=== PATIENT | female | born 1945 | race Caucasian/White ===

== ENCOUNTER 2017-11-06 08:17 | Outpatient (CLI) | payer MEDICARE, SELFPAY ==
[2017-11-06] VITALS (8 sets, daily range): BP systolic 120–176; BP diastolic 51–95; PULSE 61–76; RESP 12–18; TEMP 36.5; O2SAT 96–100
--- NOTE | 2017-11-06 08:20 | DI.RAD.S_ITS ---
PROCEDURE: PAIN L/S TRANSFORAMINAL INJECT INDICATIONS: LUMBOSACRAL RADICULOPATHY FINDINGS: Fluoroscopic spot filming was performed to verify placement of spinal needles at the left L5-S1 nerve root level(s), as labeled on the films. Appropriate location(s) of the needle tip(s) was confirmed by injection of iodinated contrast. IMPRESSION: Successful needle localization for left L5-S1 nerve root injection (epidural steroid). Dictated by: Edy Jerry M.D. on 11/06/2017 at 13:44 Approved by: Edy Jerry M.D. on 11/06/2017 at 13:45
--- NOTE | 2017-11-06 09:03 | P.PCN_ITS ---
Procedures Date/Time Date of procedure: 11/06/17 Time of procedure: 09:25 General Procedure description: PREOP DIAGNOSIS 1. FORMAINAL STENOSIS WITH LE SYMPTOMS POST OP DIAGNOSIS 1. FORMAINAL STENOSIS WITH LE SYMPTOMS PROCEDURES 1. FLUOROSCOPICALLY GUIDED CONTRAST CONTROLLED TRANSFORAMINAL EPIDURAL STEROID INJECTION - Left L5/S1 PHYSICIAN: Carlo Arriola DO INDICATIONS: Shanice is referred by Dr. Scales for treatment of Foraminal Stenosis with Right LE Symptoms FINDINGS Foraminal Nerve Root Compression secondary to disc disease and facet hypertrophy DESCRIPTION OF PROCEDURE: Following denial of allergy and review of potential side effects and complications, including, but not necessarily limited to, infection, allergic reaction, local tissue breakdown, stroke, temporary or permanent nerve injury, paralysis, and possible , the patient indicated that the patient understood and agreed to proceed. An informed consent document was signed by the patient, witnessed by a nurse, and placed in the patient's chart. Additionally, other treatment options including medications, modalities, and physical therapy were reviewed with the patient. Per the patient request, IV conscious sedation was administered via 5mg of Versed to patient comfort. The patient's vital signs were monitored throughout the procedure by both the nurse and the physician without significant fluctuation. The patient remained conversant throughout the procedure. In the prone position following sterile prep and drape of the lumbar region, the Left L5/S1 posterior neuroforamen was identified fluoroscopically. The skin was anesthetized via a 25-gauge 1.5-inch needle with 1% lidocaine solution. At this point, a 25-gauge 3.5-inch spinal needle was atraumatically introduced and advanced under fluoroscopic guidance through the posterior Left L5/S1 neuroforamen to approximately the anterior aspect of the canal. Depth was confirmed on lateral view. Following negative aspiration, injection of approximately 1.5 cc of Isovue 200 under live fluoroscopy in the AP view confirmed excellent flow along the nerve root, into the epidural space without vascular or intrathecal uptake observed Radiological data, including multiple fluoroscopic views of the lumbosacral spine, reveal a spinal needle at the Left L5/S1 posterior neuroforamen. Subsequent views show flow of contrast material flowing superiorly and inferiorly along the nerve root confirming epidural flow. Subsequently, a test dose of 1.5 cc of 1% lidocaine solution was administered and patient was observed for two minutes for signs or symptoms of complications , including abdominal pain, shortness of breath, bilateral upper or lower extremity weakness, nausea and vomiting, prior to steroid injection. At this point, a total of 3 cc or 20 mg of dexamethasone and 80mg Depo Medrol was injected without incident. The patient was then transferred to the recovery area where they were observed for an appropriate time after the injection. The patient reported a VAS score of 7 prior to the procedure and a post-procedure VAS of 0. Total Fluoroscopy Time: 20.9 seconds Total Conscious Sedation Time: 24min POST OP INSTRUCTIONS The patient was provided a Pain Log to continue to record their response to the target-specific procedure prior to follow-up visit with their referring physician. Additionally, specific post-injection care instructions and a contact number to our office were provided if concerns arise regarding possible complications associated with the procedure are suspected. Carlo Arriola DO Complications: none
[2017-11-06] MEDS: MIDAZOLAM 5 MG/5 ML VIAL IV (09:08)
[2017-11-06] MEDS: BUPIVACAINE 0.25% (PF) 30 ML VIAL INJ (09:15)
[2017-11-06] MEDS: IOPAMIDOL 15 ML VIAL 3 ML INJ (09:15)
[2017-11-06] MEDS: DEXAMETHASONE 10 MG/ML VIAL 20 MG INJ (09:15)
[2017-11-06] MEDS: methylPREDNISolone acetate 80 MG/ML VIAL INJ (09:15)
--- NOTE | 2017-11-06 09:28 | PM.PROC.1 ---
Procedures Date/Time Date of procedure: 11/06/17 Time of procedure: 09:57 General Procedure description: Complications: none
== END 2017-11-06 10:20 | disposition home or self-care (01) ==
PROVIDERS: PCP Nurse Practitioner Family; Visit Provider Physical Medicine & Rehabilitation
DX: M54.17 Radiculopathy, lumbosacral region (principal)
CPT/HCPCS: 64483; J1040; J1100; J2250

== ENCOUNTER 2018-01-08 09:31 | Outpatient (CLI) | payer MEDICARE, SELFPAY ==
[2018-01-08] VITALS (11 sets, daily range): BP systolic 135–180; BP diastolic 54–92; PULSE 68–78; RESP 11–20; TEMP 36.4; O2SAT 97–100
--- NOTE | 2018-01-08 09:33 | DI.RAD.S_ITS ---
PROCEDURE: PAIN L INTERLAMINAR/CAUDAL INJ INDICATIONS: Radiculopathy, lumbosacral region FINDINGS: Fluoroscopic spot filming was performed to verify placement of spinal needles at the L5-S1 level(s), as labeled on the films. Appropriate location(s) of the needle tip(s) was confirmed by injection of iodinated contrast. IMPRESSION: Intraoperative documentation of epidural injection at the left L5-S1 level Dictated by: Dwayne Forrester M.D. on 01/08/2018 at 14:46 Approved by: Dwayne Forrester M.D. on 01/08/2018 at 14:47
--- NOTE | 2018-01-08 10:29 | P.PCN_ITS ---
Procedures Date/Time Date of procedure: 01/08/18 Time of procedure: 10:29 General Procedure description: PROVIDER: Carlo Arriola DO Operative Note PREOP DIAGNOSIS 1. HNP WITH RADICULAR FEATURES, 2. MULTILEVEL CENTRAL STENOSIS, POST OP DIAGNOSIS 1. HNP WITH RADICULAR FEATURES, 2. MULTILEVEL CENTRAL STENOSIS, PROCEDURES 1. FLUORSCOPICALLY GUIDED CONTRAST CONTROLLED INTERLAMINAR EPIDURAL STEROID INJECTION - L5/S1 PHYSICIAN: Carlo Arriola DO INDICATIONS Shanice is referred by Dr. Barroso for treatment of Bilateral Foraminal Stenosis L>R LE symptoms. FINDINGS Multilevel Central Spinal Stenosis with Nerve Root Compression DESCRIPTION OF PROCEDURE Fluoroscopically guided, contrast-controlled L5/S1 translaminar epidural steroid injection. Following denial of allergy and review of potential side effects and complications, including, but not necessarily limited to, infection, allergic reaction, local tissue breakdown, temporary as well as permanent nerve injury, paralysis, stroke and possible , the patient indicated that the patient understood and agreed to proceed. An informed consent document was signed by the patient, witnessed by a nurse, and placed in the patient's chart. Additionally, other treatment options including modalities, medications, and physical therapy were reviewed with the patient. After review of previous anaesthesic history and IV conscious sedation the patient was deemed safe to proceed with todays procedure with IV conscious sedation as ASA class II designation. Safety time-out was performed to confirm patient ID, procedure to be performed and site of procedure. IV sedation was accomplished with a combination of 3mg of Versed administered by the RN after DO order, titrated to patient comfort during the course of the procedure while the patient remained responsive to all verbal commands. In the prone position, following sterile prep and drape of the lumbar region, the L5/S1 translaminar space was identified fluoroscopically. The skin was anesthetized via a 25-gauge, 1.5-inch needle with 1% lidocaine solution. At this point, a 22-gauge short bevel spinal needle was atraumatically introduced and advanced under fluoroscopic guidance into the region of the L5/S1 translaminar space. Depth was confirmed on lateral view. Radiological data, including multiple fluoroscopic views of the lumbar spine, reveal a spinal needle at the L5/S1 translaminar space. Lateral views then show placement of the needle in the epidural space. Subsequent views show contrast material flowing superiorly and inferiorly in the epidural space. No vascular or intrathecal uptake is observed. At this point, using loss of resistance technique with saline and air, the epidural space was entered. This was confirmed following negative aspiration with injection of approximately 1.5 cc of Isovue 200, showing excellent epidural flow without vascular or intrathecal uptake. At this point, 1 cc of 1 % lidocaine solution combined with 3 cc or 20 mg of dexamethasone and 80mg Depo medrol was injected without incident. The patent tolerated the procedure without signs of symptoms of complications prior to transfer to the recovery area for further monitoring. The patient was then transferred to the recovery area where they were observed for an appropriate period of time after the injection. The patient reported a VAS score of 6 prior to the procedure and a post-procedure VAS of 0. Total Fluoroscopy Time: 11.8 seconds Total Conscious Sedation Time: 24min POST OP INSTRUCTIONS The patient was provided a Pain Log to continue to record their response to the target-specific procedure prior to follow-up visit with their referring physician. Additionally, specific post-injection care instructions and a contact number to our office were provided if concerns arise regarding possible complications associated with the procedure are suspected. Carlo Arriola DO
[2018-01-08] MEDS: IOPAMIDOL 15 ML VIAL 3 ML INJ (11:02)
[2018-01-08] MEDS: DEXAMETHASONE 10 MG/ML VIAL 20 MG INJ (11:02)
[2018-01-08] MEDS: BUPIVACAINE 0.25% (PF) VIAL 2 ML INJ (11:02)
[2018-01-08] MEDS: methylPREDNISolone acetate 80 MG/ML VIAL INJ (11:03)
[2018-01-08] MEDS: MIDAZOLAM 5 MG/5 ML VIAL IV (11:03)
--- NOTE | 2018-01-09 17:35 | PC.NURSE ---
Called pt for follow up steroid injection visit. She forgot her pain log so she is keeping track of her pain otherwise. She reports feeling better and even though her pain went from hip to hip initially it has calmed down and its more bilateral with less intensity. I reiterated that she can start physical therapy per Dr. Arriola's response to her yesterday that it was ok to start it.
== END 2018-01-08 11:38 ==
LOC: RAD 09:32
PROVIDERS: PCP Nurse Practitioner Family; Visit Provider Physical Medicine & Rehabilitation
DX: M54.17 Radiculopathy, lumbosacral region (principal); M48.07 Spinal stenosis, lumbosacral region
CPT/HCPCS: 62323; 99152; J1040; J1100; J2250

== ENCOUNTER → 2018-02-18 14:08 | Outpatient (CLI) | payer MEDICARE, SELFPAY ==
[2018-02-18 15:20] LABS: Hemoglobin A1C% w Est Avg Glu 7.1 % (4.0-6.0)
== END ==
PROVIDERS: PCP Nurse Practitioner Family; Visit Provider Neurological Surgery
DX: Z01.812 Encounter for preprocedural laboratory examination (principal)
CPT/HCPCS: 36415; 83036

== ENCOUNTER → 2018-05-02 12:43 | Outpatient (CLI) | payer MEDICARE, SELFPAY ==
--- NOTE | 2018-05-02 12:45 | DI.RAD.S_ITS ---
PROCEDURE: XR CERVICAL SPINE 4V OR 5V INDICATIONS: neck and shoulder pain TECHNIQUE: 5 views of the cervical spine acquired. COMPARISON: None. FINDINGS: Bones: No fractures or dislocations to the C7 level. There is grade one anterolisthesis at C3-C4 and C4-C5. Moderate degenerative disc disease is present at C5-C6 and C6-C7. There is bilateral facet arthropathy, most pronounced and severe at C4-C5 and C5-C6 on the left, and C4-C5 on the right. Oblique images demonstrate mild to moderate bony foraminal stenoses at C4-C5 bilaterally and C6-C7 on the left. No significant foramina stenosis on the right. Soft tissues: No prevertebral soft tissue swelling. IMPRESSION: 1. Degenerative disc and facet disease in cervical spine. 2. Mild to moderate foraminal stenosis at C4-C5 bilaterally and C6-C7 on the left. 3. Grade 1 anterolisthesis at C3-C4 and C4-C5. Dictated by: Josemanuel Ramirez M.D. on 05/02/2018 at 17:29 Approved by: Josemanuel Ramirez M.D. on 05/02/2018 at 17:33
== END ==
PROVIDERS: PCP Nurse Practitioner Family; Visit Provider Physical Medicine & Rehabilitation
DX: M50.322 Other cervical disc degeneration at C5-C6 level (principal); M48.02 Spinal stenosis, cervical region; M43.12 Spondylolisthesis, cervical region; M25.519 Pain in unspecified shoulder
CPT/HCPCS: 72050; 99215

== ENCOUNTER → 2018-05-04 10:06 | Outpatient (CLI) | payer MEDICARE, SELFPAY ==
--- NOTE | 2018-05-04 | DI.MG.S_ITS ---
BILATERAL DIGITAL SCREENING MAMMOGRAM 3D/2D WITH CAD: 05/04/2018 CLINICAL: Routine screening. Comparison is made to exams dated: 05/02/2016 mammogram, 10/20/2014 mammogram, and 07/23/2013 mammogram - [facility]. The tissue of both breasts is heterogeneously dense. This may lower the sensitivity of mammography. Current study was also evaluated with a Computer Aided Detection (CAD) system. There are benign vascular calcifications in both breasts. No significant masses, calcifications, or other findings are seen in either breast. There has been no significant interval change. IMPRESSION: There is no mammographic evidence of malignancy. A 1 year screening mammogram is recommended. This exam was interpreted at Station ID: [id number]. NOTE: For mammograms, a report in lay terms will be sent to the patient. Approximately 15% of breast malignancies will not be visualized mammographically. In the management of a palpable breast mass, a negative mammogram must not discourage biopsy of a clinically suspicious lesion. Electronically Signed By: Hany naik/venita:05/06/2018 08:53:03 letter sent: Normal Exam ACR BI-RADS Category 2: Benign Finding(s) [id number]
== END ==
PROVIDERS: PCP Nurse Practitioner Family; Visit Provider Nurse Practitioner Family
DX: Z12.31 Encounter for screening mammogram for malignant neoplasm of breast (principal)
CPT/HCPCS: 77063; 77067

== ENCOUNTER → 2018-05-10 13:00 | Outpatient (CLI) | payer MEDICARE, SELFPAY ==
--- NOTE | 2018-05-10 14:41 | DI.MRI.S_ITS ---
PROCEDURE: MR CERVICAL SPINE WO CON INDICATIONS: neck and shoulder pain TECHNIQUE: Noncontrast sagittal T1 spin echo and T2 fast spin echo, sagittal STIR, foraminal oblique sagittal T2 fast spin echo, and axial gradient echo or T2 fast spin echo through the cervical spine. COMPARISON: [facility], MR, CERVICAL SPINE W/O CONTRAST, 01/07/2014, 20:25. FINDINGS: Image quality: Excellent. Alignment and Curvature: Trace anterolisthesis of C3 on C4 and C4 on C5. Bone Marrow: Marrow demonstrates normal overall signal. Spinal Cord: Visualized spinal cord has normal size and signal. No cerebellar tonsillar herniation. Paraspinous Soft Tissues: No paravertebral masses. Prevertebral soft tissues are normal in thickness. C2-C3: Bilateral uncovertebral arthropathy and posterior intervening disc osteophyte complex, mild. No central canal narrowing. Mild left foraminal narrowing. No definite right foraminal stenosis. C3-C4: Bilateral uncovertebral arthropathy and posterior intervening disc osteophyte complex, and bilateral facet arthropathy. Mild canal narrowing with effacement of the posterior thecal sac. Moderate bilateral foraminal stenoses, which has progressed since prior study on both sides. C4-C5: Bilateral uncovertebral arthropathy and posterior intervening disc osteophyte complex, and bilateral facet arthropathy, left greater than right. Minimal central canal narrowing with partial effacement of the posterior thecal sac. No definite right foraminal stenosis. Severe left foraminal narrowing C5-C6: Bilateral uncovertebral arthropathy and posterior intervening disc osteophyte complex, and bilateral facet arthropathy. No definite canal narrowing. [id number] right and left foraminal stenoses. C6-C7: Bilateral uncovertebral arthropathy and posterior intervening disc osteophyte complex, and bilateral facet degeneration. Mild canal narrowing with near complete effacement of the anterior thecal sac. No foraminal stenosis. C7-T1: Bilateral uncovertebral arthropathy and posterior intervening disc osteophyte complex, and mild bilateral facet degeneration. No right foraminal narrowing. Minimal left foraminal stenosis. IMPRESSION: Multilevel cervical disc degeneration with trace anterolisthesis of C3 on C4, C4 on C5. No high-grade canal stenosis. Mild C6 on C7 canal narrowing (unchanged). Moderate bilateral foraminal narrowing at C3-C4. This has progressed bilaterally since 01/07/14 Severe left C4-C5 foraminal stenosis. This is probably unchanged Dictated by: Roni Tran M.D. on 05/10/2018 at 15:44 Approved by: Roni Tran M.D. on 05/10/2018 at 15:58
== END ==
PROVIDERS: PCP Nurse Practitioner Family; Visit Provider Physical Medicine & Rehabilitation
DX: M50.31 Other cervical disc degeneration, high cervical region (principal); M48.02 Spinal stenosis, cervical region; M25.519 Pain in unspecified shoulder
CPT/HCPCS: 72141

== ENCOUNTER 2018-07-31 09:49 | Outpatient (CLI) | payer MEDICARE, SELFPAY ==
--- NOTE | 2018-07-31 09:51 | DI.RAD.S_ITS ---
PROCEDURE: PAIN C/T INTERLAMINAR INJECT INDICATIONS: SPINAL STENOSIS FINDINGS: Fluoroscopic spot filming was performed to verify placement of spinal needles at the C6-C7 dorsal epidural level, as labeled on the films. Appropriate location(s) of the needle tip was confirmed by injection of iodinated contrast. IMPRESSION: Successful dorsal epidural midline needle tip localization for epidural steroid injection at C6-C7. Dictated by: Edy Jerry M.D. on 07/31/2018 at 11:19 Approved by: Edy Jerry M.D. on 07/31/2018 at 11:20
[2018-07-31 09:58] VITALS: BP 151/80; PULSE 89; RESP 16; TEMP 35.9; O2SAT 96
[2018-07-31 10:20] VITALS: BP 136/76; PULSE 88; RESP 16; O2SAT 100
[2018-07-31] MEDS: MIDAZOLAM 5 MG/5 ML VIAL IV (10:20)
[2018-07-31 10:25] VITALS: BP 130/69; PULSE 87; RESP 16; O2SAT 100
[2018-07-31 10:30] VITALS: BP 133/75; PULSE 88; RESP 16; O2SAT 100
[2018-07-31] MEDS: LIDOCAINE 1% 20 ML INJ 5 ML INJ (10:30)
[2018-07-31] MEDS: IOPAMIDOL 15 ML VIAL 3 ML INJ (10:30)
[2018-07-31] MEDS: DEXAMETHASONE 10 MG/ML VIAL 20 MG INJ (10:31)
--- NOTE | 2018-07-31 10:34 | PC.NURSE ---
pt tolerated procedure well. Assisted pt off table with 2 person standby assist. Transferred pt to pre procedure room via wheelchair for continued monitoring with Aylin LOPES.
[2018-07-31 10:45] VITALS: BP 133/52; PULSE 78; RESP 16; O2SAT 95
[2018-07-31 10:50] VITALS: BP 116/59; PULSE 78; RESP 16; O2SAT 96
--- NOTE | 2018-08-07 13:46 | P.PCN_ITS ---
Procedures Date/Time Date of procedure: 07/31/18 Time of procedure: 09:45 General Procedure description: PREOP DIAGNOSIS 1. CERVICAL STENOSIS, 2. CERVICAL HNP WITH UPPER EXTREMITY RADICULAR FEATURES, POST OP DIAGNOSIS 1. CERVICAL STENOSIS, 2. CERVICAL HNP WITH UPPER EXTREMITY RADICULAR FEATURES, PROCEDURES 1. FLUORSCOPICALLY GUIDED CONTRAST CONTROLLED INTERLAMINAR EPIDURAL STEROID INJECTION - C6/7 TL [place]IM[place] PHYSICIAN: Carlo Arriola, INDICATIONS Shanice is referred for treatment of Cervical HNP with Upper Extremity Paresthesias. FINDINGS Cervical Stenosis due to disc deterioration and nerve root irritation and nerve root irritation DESCRIPTION OF PROCEDURE Fluoroscopically guided, contrast-controlled C6/7 translaminar epidural steroid injection with conscious sedation. Following denial of allergy and review of potential side effects and complications, including, but not necessarily limited to, infection, allergic reaction, local tissue breakdown, temporary as well as permanent nerve injury, stroke, paralysis, and possible , the patient indicated that patient understood and agreed to proceed. An informed consent document was signed by the patient, witnessed by a nurse, and placed in the patient's chart. Additionally, other treatment options including modalities, medications, and physical therapy were reviewed with the patient. After review of previous anaesthesic history and IV conscious sedation the patient was deemed safe to proceed with todays procedure with IV conscious sedation as ASA class II designation. Safety time-out was performed to confirm patient ID, procedure to be performed and site of procedure. IV sedation was accomplished with a combination of 4mg of Versed administered by the RN after DO order, titrated to patient comfort during the course of the procedure while the patient remained responsive to all verbal commands. In the prone position, following sterile prep and drape of the cervical region, the C6/7 translaminar space was identified fluoroscopically. The skin was anesthetized via a 25-gauge 1.5-inch needle with 1% lidocaine solution. At this point, a 25-gauge, 2.5-inch short bevel spinal needle was atraumatically introduced and advanced under fluoroscopic guidance into epidural space at the C6/7 translaminar space. Depth was confirmed on lateral view. Radiological data, including multiple fluoroscopic views of the cervical spine, reveal a spinal needle at the C6/7 translaminar space. Lateral views then show placement of the needle in the epidural space. Subsequent views show contrast material flowing superiorly and inferiorly in the epidural space. DSA fluoroscopy with live contrast injection, once again, confirmed no vascular or intrathecal uptake. At this point, using loss of resistance technique with saline and air, the epidu ral space was entered. Following negative aspiration, injection of approximately 1.5 cc of Isovue-200 with live fluoroscopy in the AP view confirmed epidural flow in the epidural space without vascular or intrathecal uptake observed. Subsequently, a test dose of 1 cc of 1% lidocaine solution was injected and patient was observed for two minutes without signs or symptoms of complications, including abdominal pain, shortness of breath, bilateral upper or lower extremity weakness, nausea and vomiting, prior to steroid injection. At this point, 2cc or 20mg of dexamethasone was then injected without incident. The patient tolerated the procedure well without signs or symptoms of complications prior to being transferred to the recovery area for further monitoring, The patient was then transferred to the recovery area where they were observed for an appropriate period of time after the injection. The patient reported a VAS score of 6 prior to the procedure and a post-procedure VAS of 0. Total Fluoroscopy Time: 37.0 seconds Total Conscious Time: 24min POST OP INSTRUCTIONS The patient was provided a Pain Log to continue to record their response to the target-specific procedure prior to follow-up visit with the referring provider. Additionally, specific post-injection care instructions and a contact number to our office were provided if concerns arise regarding possible complications associated with the procedure are suspected. Carlo Arriola DO Complications: none
== END 2018-07-31 11:18 | disposition home or self-care (01) ==
LOC: RAD 09:50
PROVIDERS: PCP Nurse Practitioner Family; Visit Provider Physical Medicine & Rehabilitation
DX: M48.02 Spinal stenosis, cervical region (principal); M50.123 Cervical disc disorder at C6-C7 level with radiculopathy
CPT/HCPCS: 62321; 99152; J1100; J2250

== ENCOUNTER → 2018-11-20 16:11 | Outpatient (CLI) | payer MEDICARE, SELFPAY ==
[2018-11-20 18:01] LABS: Free T3, Triiodothyronine Free 2.87 pg/mL (2.77-5.27); Free T4, Direct Thyroxine 0.95 ng/dL (0.78-2.19)
[2018-11-20 18:14] LABS: Thyroid Stimulating Hormone 2.87 uIU/mL (0.47-4.68)
== END ==
PROVIDERS: PCP Nurse Practitioner Family; Visit Provider Nurse Practitioner Family
DX: E03.9 Hypothyroidism, unspecified (principal); E11.9 Type 2 diabetes mellitus without complications
CPT/HCPCS: 36415; 84439; 84443; 84481

== ENCOUNTER 2019-03-13 10:49 | Outpatient (CLI) | payer MEDICARE, SELFPAY ==
[2019-03-13] VITALS (8 sets, daily range): BP systolic 140–189; BP diastolic 65–96; PULSE 68–85; RESP 16; TEMP 36.6; O2SAT 95–100
--- NOTE | 2019-03-13 11:02 | DI.RAD.S_ITS ---
PROCEDURE: PAIN C/T INTERLAMINAR INJECT INDICATIONS: SPONDYLOSIS FINDINGS: Fluoroscopic spot filming was performed to verify placement of spinal needles at the C6-C7 level(s), as labeled on the films. Appropriate location(s) of the needle tip(s) was confirmed by injection of iodinated contrast. Dictated by: Roni Tran M.D. on 03/13/2019 at 14:34 Approved by: Roni Tran M.D. on 03/13/2019 at 14:35
[2019-03-13] MEDS: MIDAZOLAM 5 MG/5 ML VIAL IV (11:20)
[2019-03-13] MEDS: fentaNYL 100 MCG/2 ML INJ 50 MCG IV (11:20)
[2019-03-13] MEDS: DEXAMETHASONE 10 MG/ML VIAL 30 MG INJ (11:30)
[2019-03-13] MEDS: IOPAMIDOL 15 ML VIAL 3 ML INJ (11:30)
[2019-03-13] MEDS: LIDOCAINE 1% 20 ML 5 ML INJ (11:30)
--- NOTE | 2019-03-13 11:38 | PM.PROC.1 ---
Procedures Date/Time Date of procedure: 03/13/19 Time of procedure: 11:38 General Procedure description: PREOP DIAGNOSIS 1. CERVICAL STENOSIS, 2. CERVICAL HNP WITH UPPER EXTREMITY RADICULAR FEATURES, POST OP DIAGNOSIS 1. CERVICAL STENOSIS, 2. CERVICAL HNP WITH UPPER EXTREMITY RADICULAR FEATURES, PROCEDURES 1. FLUORSCOPICALLY GUIDED CONTRAST CONTROLLED INTERLAMINAR EPIDURAL STEROID INJECTION - C6/7 TL KIMBERLY PHYSICIAN: Carlo Arriola DO INDICATIONS Shanice is referred by DUANE Ku for treatment of Cervical HNP with Upper Extremity Paresthesias. FINDINGS Cervical Stenosis due to disc deterioration and nerve root irritation and nerve root irritation DESCRIPTION OF PROCEDURE Fluoroscopically guided, contrast-controlled C6/7 translaminar epidural steroid injection with conscious sedation. Following review of allergy and review of potential side effects and complications, including, but not necessarily limited to, infection, allergic reaction, local tissue breakdown, temporary as well as permanent nerve injury, stroke, paralysis, and possible , the patient indicated that patient understood and agreed to proceed. An informed consent document was signed by the patient, witnessed by a nurse, and placed in the patient's chart. Additionally, other treatment options including modalities, medications, and physical therapy were reviewed with the patient. After review of previous anaesthesic history and IV conscious sedation the patient was deemed safe to proceed with todays procedure with IV conscious sedation as ASA class II designation. Safety time-out was performed to confirm patient ID, procedure to be performed and site of procedure. IV sedation was accomplished with a combination of 2mg of Versed and 50mcg of Fentanyl administered by the RN after DO order, titrated to patient comfort during the course of the procedure while the patient remained responsive to all verbal commands. In the prone position, following sterile prep and drape of the cervical region, the C6/7 translaminar space was identified fluoroscopically. The skin was anesthetized via a 25-gauge 1.5-inch needle with 1% lidocaine solution. At this point, a 25-gauge, 2.5-inch short bevel spinal needle was atraumatically introduced and advanced under fluoroscopic guidance into epidural space at the C6/7 translaminar space. Depth was confirmed on lateral view. Radiological data, including multiple fluoroscopic views of the cervical spine, reveal a spinal needle at the C6/7 translaminar space. Lateral views then show placement of the needle in the epidural space. Subsequent views show contrast material flowing superiorly and inferiorly in the epidural space. DSA fluoroscopy with live contrast injection, once again, confirmed no vascular or intrathecal uptake. At this point, using loss of resistance technique with saline and air, the epidural space was entered. Following negative aspiration, injection of approximately 1.5 cc of Isovue-200 with live fluoroscopy in the AP view confirmed epidural flow in the epidural space without vascular or intrathecal uptake observed. Subsequently, a test dose of 1 cc of 1% lidocaine solution was injected and patient was observed for two minutes without signs or symptoms of complications, including abdominal pain, shortness of breath, bilateral upper or lower extremity weakness, nausea and vomiting, prior to steroid injection. At this point, 2cc or 20mg of dexamethasone was then injected without incident. The patient tolerated the procedure well without signs or symptoms of complications prior to being transferred to the recovery area for further monitoring, The patient was then transferred to the recovery area where they were observed for an appropriate period of time after the injection. The patient reported a VAS score of 6 prior to the procedure and a post-procedure VAS of 0. Total Fluoroscopy Time: 37.0 seconds Total Conscious Time: 24min POST OP INSTRUCTIONS The patient was provided a Pain Log to continue to record their response to the target-specific procedure prior to follow-up visit with the referring provider. Additionally, specific post-injection care instructions and a contact number to our office were provided if concerns arise regarding possible complications associated with the procedure are suspected. Carlo Arriola DO Complications: none
--- NOTE | 2019-03-13 11:49 | PC.NURSE ---
Post procedure note: Time out at 1119, Medicated with Versed 2 mg and 50 mcg Fentanyl IV. VSS throughout procedure. Hypertensive to start. O2 sat WNL on RA prior to transfer to post procedure for monitoring. No complaints of pain. Transported via w/c. Handoff report given to Leonor Frank RN.
== END 2019-03-13 12:07 | disposition home or self-care (01) ==
LOC: RAD 10:51
PROVIDERS: PCP Nurse Practitioner Family; Visit Provider Physical Medicine & Rehabilitation
DX: M48.02 Spinal stenosis, cervical region (principal); M50.123 Cervical disc disorder at C6-C7 level with radiculopathy; R20.2 Paresthesia of skin
CPT/HCPCS: 62321; 99152; J1100; J2250; J3010

== ENCOUNTER → 2019-05-01 13:05 | Outpatient (CLI) | payer MEDICARE, SELFPAY | PROVIDERS: PCP Nurse Practitioner Family; Visit Provider Registered Nurse | DX: M54.12 Radiculopathy, cervical region (principal); M48.02 Spinal stenosis, cervical region; M47.812 Spondylosis without myelopathy or radiculopathy, cervical region | CPT/HCPCS: 95886; 95912 ==

== ENCOUNTER → 2019-07-29 12:42 | Outpatient (CLI) | payer MEDICARE, SELFPAY | PROVIDERS: PCP Nurse Practitioner Family; Referring Provider Internal Medicine Endocrinology, Diabetes & Metabolism; Visit Provider Internal Medicine Endocrinology, Diabetes & Metabolism | DX: M81.0 Age-related osteoporosis without current pathological fracture (principal); Z78.0 Asymptomatic menopausal state; E11.9 Type 2 diabetes mellitus without complications; E07.9 Disorder of thyroid, unspecified; Z87.891 Personal history of nicotine dependence | CPT/HCPCS: 77080; 77081 ==

== ENCOUNTER → 2019-11-08 09:37 | Outpatient (CLI) | payer MEDICARE, SELFPAY ==
[2019-11-09 02:03] LABS: COVID19 Sendout Not Detected (Not Detect)
== END ==
PROVIDERS: PCP Nurse Practitioner Family; Visit Provider Physician Assistant
DX: Z01.818 Encounter for other preprocedural examination (principal)
CPT/HCPCS: 87635

== ENCOUNTER 2019-11-11 10:14 | Outpatient (CLI) | payer MEDICARE, SELFPAY ==
[2019-11-11] VITALS (8 sets, daily range): BP systolic 145–175; BP diastolic 70–82; PULSE 75–87; RESP 16; TEMP 36.3; O2SAT 95–100
--- NOTE | 2019-11-11 10:17 | DI.RAD.S_ITS ---
PROCEDURE: PAIN L/S FACET INJ/BLK 1ST STACIA COMPARISON: None. INDICATIONS: SPONDYLOSIS FINDINGS: Fluoroscopic spot filming was performed to verify placement of spinal needles at the L4-L5, and L5-S1 level(s), as labeled on the films. Appropriate location(s) of the needle tip(s) was confirmed by injection of iodinated contrast. Dictated by: Roni Tran M.D. on 11/11/2019 at 11:32 Approved by: Roni Tran M.D. on 11/11/2019 at 11:34
[2019-11-11] MEDS: MIDAZOLAM 5 MG/5 ML VIAL IV (10:58)
[2019-11-11] MEDS: BUPIVACAINE 0.5% (PF) VIAL 2 ML INJ (11:03)
[2019-11-11] MEDS: LIDOCAINE 1% 20 ML 10 ML INJ (11:03)
[2019-11-11] MEDS: IOPAMIDOL 15 ML VIAL 3 ML INJ (11:03)
[2019-11-11] MEDS: BETAMETHASONE 30 MG/5 ML MDV 12 MG INJ (11:04)
--- NOTE | 2019-11-11 11:11 | P.PCN_ITS ---
Procedures Date/Time Date of procedure: 11/11/19 Time of procedure: 11:11 General Procedure description: PREOP DIAGNOSIS 1. FACET ARTHROPATHY 2. AXIAL LBP 3. MULTILEVEL DDD POST OP DIAGNOSIS 1. FACET ARTHROPATHY 2. AXIAL LBP 3. MULTILEVEL DDD PROCEDURES 1. FLUORSCOPICALLY GUIDED CONTRAST CONTROLLED FACET JOINT INJECTIONS BILATERAL L4/5, L5/S1 PHYSICIAN: Carlo Arriola, DO INDICATIONS Shanice is referred by DUANE Novoa for treatment of Axial LBP FINDINGS Multilevel Facet Arthropathy with Clinically significant axial LBP DESCRIPTION OF PROCEDURE Fluoroscopically guided, contrast-controlled bilateral L4/5, L5/S1 facet joint injections. Following review of allergy and review of potential side effects and complications, including, but not necessarily limited to, infection, allergic reaction, local tissue breakdown, stroke, temporary or permanent nerve injury, paralysis, and possible , the patient indicated that the patient understood and agreed to proceed. An informed consent document was signed by the patient, witnessed by a nurse, and placed in the patient's chart. Additionally, other treatment options including medications, modalities, and physical therapy were reviewed with the patient. After review of previous anaesthesic history and IV conscious sedation the patient was deemed safe to proceed with todays procedure with IV conscious sedation as ASA class II designation. Safety time-out was performed to confirm patient ID, procedure to be performed and site of procedure. IV sedation was accomplished with a combination of 3mg of Versed was administered by the RN after DO order, titrated to patient comfort during the course of the procedure while the patient remained responsive to all verbal commands In the prone position, following sterile prep and drape of the lumbar region, the posterior aspect of the L4/5, L5/S1 facet joints were identified fluoroscopically. The skin was anesthetized via a 25-gauge 1.5-inch needle with 1% lidocaine solution into the corresponding facet joints. At this point, a 22- gauge 3.5-inch spinal needle was atraumatically introduced and advanced under fluoroscopic guidance into the corresponding facet joints. Following negative aspiration, injections of approximately 0.2cc of Isovue 200 confirmed interarticular placement without vascular uptake. The identical procedure was then performed at the L4/5, L5/S1 facet joints on the left. Radiological data, including multiple fluoroscopic views of the lumbosacral spine, reveal a spinal needle at the L4/5, L5/S1 facet joints bilaterally. Subsequent views show flow of contrast material both superiorly and inferiorly within the joint space without vascular or intrathecal uptake. At this point, a total of 0.5cc including a mixture of 0.25cc Marcaine and 0.25cc betamethasone was injected without complication into each of the corresponding facet joints. The patient tolerated the procedure well without signs or symptoms of complications prior to transfer to the recovery area continued monitoring without incident. The patient was then transferred to the recovery area where they were observed for an appropriate period of time after the injection. The patient reported a VAS score of 7 prior to the procedure and a post- procedure VAS of 0. Total Fluoroscopy Time: 8 seconds Total Conscious Sedation Time: 24min POST OP INSTRUCTIONS The patient was provided a Pain Log to continue to record their response to the target-specific procedure prior to follow-up visit with their referring physician. Additionally, specific post-injection care instructions and a contact number to our office were provided if concerns arise regarding possible complications associated with the procedure are suspected. Carlo Arriola, Complications: none
--- NOTE | 2019-11-11 15:20 | PC.NURSE ---
tolerated procedure well, pt difficult to arouse and start moving. 2PA to transfer from table to wc, transported to pre proc room via wc. monitoring resumed by MARIANNE Viera
== END 2019-11-11 11:52 | disposition home or self-care (01) ==
LOC: RAD 10:16
PROVIDERS: PCP Nurse Practitioner Family; Referring Provider Physical Medicine & Rehabilitation; Visit Provider Physical Medicine & Rehabilitation
DX: M47.816 Spondylosis without myelopathy or radiculopathy, lumbar region (principal); M47.817 Spondylosis without myelopathy or radiculopathy, lumbosacral region; M54.5 Low back pain; M51.36 Other intervertebral disc degeneration, lumbar region; M51.37 Other intervertebral disc degeneration, lumbosacral region
CPT/HCPCS: 64493; 64494; 99152; J0702; J2250; J3010

== ENCOUNTER → 2020-01-19 10:35 | Outpatient (CLI) | payer MEDICARE, SELFPAY ==
[2020-01-20 19:58] LABS: COVID19 Sendout Not Detected (Not Detect)
== END ==
PROVIDERS: PCP Nurse Practitioner Family; Visit Provider Physician Assistant
DX: Z11.59 Encounter for screening for other viral diseases (principal)
CPT/HCPCS: 87635

== ENCOUNTER 2020-01-22 12:23 | Outpatient (CLI) | payer MEDICARE, SELFPAY ==
[2020-01-22] VITALS (10 sets, daily range): BP systolic 152–206; BP diastolic 67–112; PULSE 64–78; RESP 11–23; TEMP 36.1; O2SAT 96–100
--- NOTE | 2020-01-22 12:26 | DI.RAD.S_ITS ---
PROCEDURE: PAIN L/S FACET INJ/BLK 1ST STACIA COMPARISON: [facility], XA, PAIN L/S FACET INJ/BLK 1ST STACIA, 11/11/2019, 10:00. INDICATIONS: SPONDYLOSIS FINDINGS: There are needle tip localizations for L4 through S1 medial branch block procedures bilaterally. IMPRESSION: Successful needle tip localizations for medial branch block procedures bilaterally from L4 through S1, 6 total procedures. Dictated by: Edy Jerry M.D. on 01/22/2020 at 14:36 Approved by: Edy Jerry M.D. on 01/22/2020 at 14:37
[2020-01-22] MEDS: MIDAZOLAM 5 MG/5 ML VIAL IV (13:24)
[2020-01-22] MEDS: BUPIVACAINE 0.5% (PF) VIAL 5 ML INJ (13:28)
[2020-01-22] MEDS: IOPAMIDOL 15 ML VIAL 3 ML INJ (13:28)
[2020-01-22] MEDS: LIDOCAINE 1% 20 ML 10 ML INJ (13:28)
--- NOTE | 2020-01-22 13:44 | P.PCN_ITS ---
Date/Time/Diagnoses Date of procedure: 01/22/20 Time of procedure: 13:44 Pre-procedure diagnosis: 1. FACET ARTHROPATHY Post-procedure diagnosis: same Procedure Notes Procedure: 1. BILATERAL- L4, L5 and S1 DIAGNOSTIC MB BLOCKS with LA Anesthetic Indications: Shanice is referred by DUANE Ku for treatment of Bilateral Axial LBP. Physician: Carlo Arriola Total Fluoroscopy time (seconds): 9 Total sedation minutes: 15 Complications: none Procedure in detail & Post-procedure care: DESCRIPTION OF PROCEDURE Fluoroscopically guided, contrast-controlled bilateral L4, L5 and S1 medial branch blocks with 0.5cc of 0.5% Marcaine. Following review of allergy and review of potential side effects and complications, including, but not necessarily limited to, infection, allergic reaction, local tissue breakdown, nerve injury, paralysis, stroke and possible , the patient indicated that the patient understood and agreed to proceed. An informed consent document was signed by the patient, witnessed by a nurse, and placed in the patient's chart. After review of previous anaesthesic history and IV conscious sedation the patient was deemed safe to proceed with today's procedure with IV conscious perry tion as ASA class II designation. Safety time-out was performed to confirm patient ID, procedure to be performed and site of procedure. IV sedation was accomplished with a combination of 3mg of Versed was administered by the RN after DO order, titrated to patient comfort during the course of the procedure while the patient remained responsive to all verbal commands In the prone position, following sterile prep and drape of the lumbar region, the right L4, L5 and S1 anatomical location of the medial branch of the dorsal ramus was identified fluoroscopically. Subsequently an anesthetic skin wheal using 1% lidocaine solution was initiated at each of the anatomical spots. Subsequently then a 22-gauge 3.5-inch spinal needle was atraumatically introduced and advanced under fluoroscopic guidance at each of the corresponding sites at the right L4, L5 and S1 MB. After negative aspiration, 0.2cc of Isovue 200 was injected, confirming placement without vascular or intrathecal uptake. Subsequently then 0.5cc of 0.5% Marcaine solution was injected at each of the corresponding sites at the right L4, L5 and S1 medial branch locations. The identical procedure was replicated on the left. The patient tolerated the procedure well without signs or symptoms of complications prior to transfer to the recovery area continued monitoring without incident. Post-procedure, the patient was monitored initiating provocative activities to measure the amount of relief from block of the facetogenic pain. The patient reported a VAS of 7 prior to the procedure and a post-procedure VAS of 1. It has been a pleasure to assist in the diagnostic and therapeutic care of your patient. POST OP INSTRUCTIONS The patient was provided with a Pain Log to complete over the next several hours and subsequent days prior to the patient's follow up with the ordering physician. If the patient has software implementation project manager relief to the solution applied, then they may be a candidate for medial branch rhizotomy. The patient is aware, was provided, once again, with a Pain Log and will follow up with the referring physician for review and clinical correlation
--- NOTE | 2020-01-22 15:40 | PC.NURSE ---
Fentanyl and versed given by this RN all other meds scanned given by Dr Arriola. Patient was stable and transferred to [facility].
== END 2020-01-22 14:37 | disposition home or self-care (01) ==
LOC: RAD 12:26
PROVIDERS: PCP Nurse Practitioner Family; Referring Provider Physical Medicine & Rehabilitation; Visit Provider Physical Medicine & Rehabilitation
DX: M47.816 Spondylosis without myelopathy or radiculopathy, lumbar region (principal); M47.817 Spondylosis without myelopathy or radiculopathy, lumbosacral region; M54.5 Low back pain
CPT/HCPCS: 64493; 64494; 99152; J2250; J3010

== ENCOUNTER → 2020-02-17 14:08 | Outpatient (CLI) | payer MEDICARE, SELFPAY ==
--- NOTE | 2020-02-17 14:10 | DI.RAD.S_ITS ---
PROCEDURE: XR LUMBAR SPINE MIN 4V INDICATIONS: chronic back pain TECHNIQUE: 5 views of the lumbar spine were acquired. COMPARISON: [facility], , L-SPINE 2-3 VIEWS, 09/24/2017, 13:29. FINDINGS: Bones: 5 nonrib-bearing vertebrae are present. Mild dextroscoliosis centered at the L3 level. Grade 1 spondylolisthesis L4-L5. Multilevel disc degeneration, severe at the L5-S1 level where there is trace retrolisthesis. Moderate L4-L5 and L5-S1 facet joint arthropathy.. No vertebral body compression fractures. No suspicious bony lesions. Soft tissues: Overlying bowel gas pattern is normal. No suspicious soft tissue calcifications. Vascular calcifications indicate atherosclerosis. Oblique images: No pars defects. IMPRESSION: Multilevel spondylosis. Dictated by: Camilo VEGA Interpreted: Dominguez Turner MD on 02/17/2020 at 16:54 Approved by: Dominguez Turner M.D. on 02/17/2020 at 17:03
== END ==
PROVIDERS: PCP Nurse Practitioner Family; Referring Provider Physical Medicine & Rehabilitation; Visit Provider Physical Medicine & Rehabilitation
DX: M47.26 Other spondylosis with radiculopathy, lumbar region (principal); M47.27 Other spondylosis with radiculopathy, lumbosacral region; M43.16 Spondylolisthesis, lumbar region; M96.1 Postlaminectomy syndrome, not elsewhere classified
CPT/HCPCS: 72110

== ENCOUNTER → 2020-04-24 12:35 | Outpatient (CLI) | payer MEDICARE, SELFPAY ==
--- NOTE | 2020-04-24 12:37 | DI.MRI.S_ITS ---
PROCEDURE: MR LUMBAR SPINE WO CON INDICATIONS: Scoliosis stenosis TECHNIQUE: Noncontrast sagittal T1 spin echo and T2 fast echo, coronal T2, sagittal STIR, axial T1 and T2 fast spin echo through the lumbar spine. COMPARISON: [facility], CR, L-SPINE 2-3 VIEWS, 09/24/2017, 13:29. [facility], MR, MR LUMBAR SPINE WO CON, 09/28/2017, 14:21. FINDINGS: Image quality: Excellent. Alignment and Curvature: 5 lumbar type vertebral bodies are present by plain film. There is mild grade 1 retrolisthesis of T12 on L1. Mild grade 1 anterolisthesis of L3 on L4 and L4 on L5. Mild grade 1 retrolisthesis of L5 on S1. Moderate rightward curvature of the mid lumbar spine. Bone Marrow: Marrow is of normal overall signal. No acute vertebral body compression fractures. Schmorl's nodes invaginate the inferior T12, superior L1, superior L3, and superior L4 endplates. There is moderate reactive signal within the endplates adjacent to the L3-L4 and L5-S1 intervertebral discs. Spinal Cord: Conus medullaris terminates at the L1-L2 disc space level. Visualized cord demonstrates normal signal and size. Paraspinous Soft Tissues: No paravertebral masses. L1-L2: Mild disc height loss and desiccation. Mild diffuse disc bulge. Mild facet and ligamentum flavum hypertrophy. Mild epidural lipomatosis. Mild canal stenosis. Mild bilateral foraminal stenosis. No change. L2-L3: Mild disc height loss and desiccation. Mild diffuse disc bulge. Mild facet and ligamentum flavum hypertrophy. Mild epidural lipomatosis. Mild canal stenosis. Mild bilateral foraminal stenosis. No change. L3-L4: Moderate disc height loss and desiccation. Moderate diffuse disc bulge. Moderate facet and ligamentum flavum hypertrophy. Mild epidural lipomatosis. Increased, severe canal stenosis. Increased, severe left foraminal stenosis with left L3 nerve root compression. Increased, moderate right foraminal stenosis. L4-L5: Mild disc height loss. Moderate disc desiccation. Mild diffuse disc bulge. Mild facet and ligamentum flavum hypertrophy. Mild canal stenosis. Moderate right and mild left foraminal stenosis. No change. L5-S1: Moderate disc height loss and desiccation. Mild diffuse disc bulge. Mild bilateral facet and ligamentum flavum hypertrophy. Mild canal stenosis. Moderate to severe bilateral foraminal stenosis with mild L5 nerve root compression. No change. IMPRESSION: 1. Multilevel degenerative disc and facet disease, as well as ligamentum flavum hypertrophy and epidural lipomatosis. 2. Multilevel canal stenoses, worst at L3-L4, where there is severe canal stenosis. 3. Multilevel foraminal stenoses, worst at L3-L4 and L5-S1 where there is associated intraforaminal nerve root compression. Recommend correlation with clinical symptoms to ascertain relevance of these findings. Dictated by: Abby Curry M.D. on 04/26/2020 at 8:12 Approved by: Abby Curry M.D. on 04/26/2020 at 8:18
== END ==
PROVIDERS: Referring Provider Physical Medicine & Rehabilitation; Visit Provider Physical Medicine & Rehabilitation
DX: M51.16 Intervertebral disc disorders with radiculopathy, lumbar region (principal); M51.17 Intervertebral disc disorders with radiculopathy, lumbosacral region; M48.061 Spinal stenosis, lumbar region without neurogenic claudication; M48.07 Spinal stenosis, lumbosacral region; M96.1 Postlaminectomy syndrome, not elsewhere classified
CPT/HCPCS: 72148

== ENCOUNTER → 2020-05-03 13:42 | Outpatient (CLI) | payer MEDICARE, SELFPAY ==
[2020-05-03 15:55] LABS: COVID19 -Nasal RAPID Negative (Negative)
== END ==
PROVIDERS: Visit Provider Physical Medicine & Rehabilitation
DX: Z01.812 Encounter for preprocedural laboratory examination (principal); Z20.828 Contact with and (suspected) exposure to other viral communicable diseases
CPT/HCPCS: 87635; C9803

== ENCOUNTER 2020-05-06 08:12 | Outpatient (CLI) | payer MEDICARE, SELFPAY ==
[2020-05-06] VITALS (8 sets, daily range): BP systolic 124–165; BP diastolic 58–80; PULSE 65–80; RESP 10–20; TEMP 36.1; O2SAT 96–100
--- NOTE | 2020-05-06 08:13 | DI.RAD.S_ITS ---
PROCEDURE: PAIN L INTERLAMINAR/CAUDAL INJ INDICATIONS: SPONDYLOSIS COMPARISON: [facility], MR, MR LUMBAR SPINE WO CON, 04/24/2020, 12:42. [facility], XA, PAIN L INTERLAMINAR/CAUDAL INJ, 01/08/2018, 10:55. FINDINGS: Fluoroscopic spot filming was performed to verify placement of spinal needles at the L3-L4 level(s), as labeled on the films. Appropriate location(s) of the needle tip(s) was confirmed by injection of iodinated contrast. IMPRESSION: Fluoroscopy for pain management. Dictated by: Josemanuel Ramirez M.D. on 05/06/2020 at 10:53 Approved by: Josemanuel Ramirez M.D. on 05/06/2020 at 10:54
[2020-05-06] MEDS: MIDAZOLAM 5 MG/5 ML VIAL IV (09:24)
[2020-05-06] MEDS: IOPAMIDOL 15 ML VIAL 3 ML INJ (09:27)
[2020-05-06] MEDS: DEXAMETHASONE 10 MG/ML VIAL 20 MG INJ (09:28)
[2020-05-06] MEDS: BETAMETHASONE 30 MG/5 ML MDV 6 MG INJ (09:28)
[2020-05-06] MEDS: BUPIVACAINE 0.25% (PF) VIAL 2 ML INJ (09:28)
--- NOTE | 2020-05-06 09:36 | P.PCN_ITS ---
Date/Time/Diagnoses Date of procedure: 05/06/20 Time of procedure: 09:36 Pre-procedure diagnosis: 1. HNP WITH RADICULAR FEATURES, 2. MULTILEVEL CENTRAL STENOSIS, Post-procedure diagnosis: same Procedure Notes Procedure: 1. FLUOROSCOPICALLY GUIDED CONTRAST CONTROLLED INTERLAMINAR EPIDURAL STEROID INJECTION - L3/4 Indications: Shanice is referred for treatment of Bilateral Foraminal Stenosis L>R LE symptoms. Physician: Carlo Arriola Total Fluoroscopy time (seconds): 8 Total sedation minutes: 9 Complications: none Procedure in detail & Post-procedure care: FINDINGS Multilevel Central Spinal Stenosis with Nerve Root Compression DESCRIPTION OF PROCEDURE Fluoroscopically guided, contrast-controlled L3/4 translaminar epidural steroid injection. Following review of allergy and review of potential side effects and complications, including, but not necessarily limited to, infection, allergic reaction, local tissue breakdown, temporary as well as permanent nerve injury, paralysis, stroke and possible , the patient indicated that the patient understood and agreed to proceed. An informed consent document was signed by the patient, witnessed by a nurse, and placed in the patient's chart. Additionally, other treatment options including modalities, medications, and physical therapy were reviewed with the patient. After review of previous anaesthesic history and IV conscious sedation the patient was deemed safe to proceed with today?s procedure with IV conscious sedation as ASA class II designation. Safety time-out was performed to confirm patient ID, procedure to be performed and site of procedure. IV sedation was accomplished with a combination of 2mg of Versed was administered by the RN after DO order, titrated to patient comfort during the course of the procedure while the patient remained responsive to all verbal commands. In the prone position, following sterile prep and drape of the lumbar region, the L3/4 translaminar space was identified fluoroscopically. The skin was anesthetized via a 25-gauge, 1.5-inch needle with 1% lidocaine solution. At this point, a 22-gauge short bevel spinal needle was atraumatically introduced and advanced under fluoroscopic guidance into the region of the L3/4 translaminar space. Depth was confirmed on lateral view. Radiological data, including multiple fluoroscopic views of the lumbar spine, reveal a spinal needle at the L3/4 translaminar space. Lateral views then show placement of the needle in the epidural space. Subsequent views show contrast material flowing superiorly and inferiorly in the epidural space. No vascular or intrathecal uptake is observed. At this point, using loss of resistance technique with saline and air, the epidural space was entered. This was confirmed following negative aspiration with injection of approximately 1.5 cc of Isovue 200, showing excellent epidural flow without vascular or intrathecal uptake. At this point, 1cc of 1% lidocaine solution combined with 3cc or 20mg of dexamethasone and 6mg of betamethasone was injected without incident. The patient tolerated the procedure well without signs or symptoms of complications prior to transfer to the recovery area continued monitoring without incident. The patient was then transferred to the recovery area where they were observed for an appropriate period of time after the injection. The patient reported a VAS score of 6 prior to the procedure and a post- procedure VAS of 0. POST OP INSTRUCTIONS The patient was provided a Pain Log to continue to record their response to the target-specific procedure prior to follow-up visit with their referring physician. Additionally, specific post-injection care instructions and a contact number to our office were provided if concerns arise regarding possible complications associated with the procedure are suspected.
--- NOTE | 2020-05-06 12:49 | PC.NURSE ---
0959- patient stood at chair, left leg felt numb and she was unable to lift it, unsteady on feet, sat back in chair, encouraged ankle waves. 1048- patient stood at chair slightly more steady but still had poor control of left leg, Reports it feels like she is standing on a sponge and her left buttocks is numb. 1130- able to stand left leg still feels numb, continues to perform ankle waves. 1200- stood at chair was able to take small steps, did not feel like her leg was going to give out just slightly weak. 1205- spoke with spouse Edwar at car and informed him of her numbness and that it should continue to improve and to just assist her when going down the few steps at home. Patient and spouse felt comfortable with plan.
== END 2020-05-06 12:05 | disposition home or self-care (01) ==
PROVIDERS: Referring Provider Physical Medicine & Rehabilitation; Visit Provider Physical Medicine & Rehabilitation
DX: M51.16 Intervertebral disc disorders with radiculopathy, lumbar region (principal); M48.061 Spinal stenosis, lumbar region without neurogenic claudication
CPT/HCPCS: 62323; J0702; J1100; J2250; J3010

== ENCOUNTER → 2020-06-18 17:12 | Outpatient (CLI) | payer MEDICARE, SELFPAY ==
[2020-06-18] MEDS: COVID-19 VACC #1, MRNA(MOD) 100 MCG/0.5 ML VIAL IM (17:26)
== END ==
PROVIDERS: Visit Provider Internal Medicine
DX: Z23 Encounter for immunization (principal)
CPT/HCPCS: 0011A; 91301

== ENCOUNTER → 2020-07-06 10:44 | Outpatient (CLI) | payer MEDICARE, SELFPAY ==
[2020-07-06 11:58] LABS: Hemoglobin A1C% w Est Avg Glu 7.3 % (4.0-6.0)
[2020-07-06 12:12] LABS: Alanine Aminotransferase 18 IU/L (<35); Albumin 3.9 g/dL (3.5-5.0); Albumin Globulin Ratio 1.8 (1.0-2.8); Alkaline Phosphatase 65 U/L (38-126); Aspartate Aminotransferase 23 IU/L (14-36); BUN Creatinine Ratio 26.1 (6-22); Bilirubin Total 0.3 mg/dL (0.2-1.3); Blood Urea Nitrogen 18 mg/dL (7-17); Calcium 9.8 mg/dL (8.4-10.2); Carbon Dioxide 33 mmol/L (22-32); Chloride 96 mmol/L (98-107); Cholesterol 182 mg/dL (140-199); Estimated Glomerular Filt Rate > 60.0 mL/min (>60); Globulin 2.2 g/dL (1.7-4.1); Glucose 155 mg/dL (80-110); HDL Cholesterol 46 mg/dL (40-60); HEMOLYSIS < 15 (0-50); LDL Cholesterol Calculated 116 mg/dL (<100); Potassium 4.3 mmol/L (3.4-5.1); Sodium 129 mmol/L (137-145); Total Protein 6.1 g/dL (6.3-8.2); Triglycerides 98 mg/dL (35-150)
[2020-07-06 12:19] LABS: Creatinine Urine Random 30.8 mg/dL
[2020-07-06 12:22] LABS: Microalbumin Urine Random < 0.6 mg/dL (0-1.6)
[2020-07-06 12:44] LABS: TSH w/ Reflex to FT4 3.32 uIU/mL (0.47-4.68)
== END ==
PROVIDERS: PCP Internal Medicine; Referring Provider Internal Medicine; Visit Provider Internal Medicine
DX: E11.9 Type 2 diabetes mellitus without complications (principal); E03.9 Hypothyroidism, unspecified; I10 Essential (primary) hypertension
CPT/HCPCS: 36415; 80053; 80061; 82043; 82570; 83036; 84443

== ENCOUNTER → 2020-07-16 12:30 | Outpatient (CLI) | payer MEDICARE, SELFPAY ==
[2020-07-16] MEDS: COVID-19 VACC #2, MRNA(MOD) 100 MCG/0.5 ML VIAL IM (12:43)
== END ==
PROVIDERS: PCP Internal Medicine; Visit Provider Internal Medicine
DX: Z23 Encounter for immunization (principal)
CPT/HCPCS: 0012A; 91301

== ENCOUNTER → 2020-09-28 14:53 | Outpatient (CLI) | payer MEDICARE, SELFPAY ==
--- NOTE | 2020-09-28 14:55 | DI.MG.S_ITS ---
BILATERAL DIGITAL SCREENING MAMMOGRAM 3D/2D WITH CAD: 09/28/2020 CLINICAL: Routine screening. Comparison is made to exams dated: 05/04/2018 mammogram, 05/02/2016 mammogram, and 10/20/2014 mammogram - [facility]. The tissue of both breasts is heterogeneously dense. This may lower the sensitivity of mammography. Current study was also evaluated with a Computer Aided Detection (CAD) system. There are benign vascular calcifications in both breasts. No significant masses, calcifications, or other findings are seen in either breast. There has been no significant interval change. IMPRESSION: BENIGN There is no mammographic evidence of malignancy. A 1 year screening mammogram is recommended. This exam was interpreted at Station ID: [id number]. NOTE: For mammograms, a report in lay terms will be sent to the patient. Approximately 15% of breast malignancies will not be visualized mammographically. In the management of a palpable breast mass, a negative mammogram must not discourage biopsy of a clinically suspicious lesion. Electronically Signed By: Hany naik/venita:09/28/2020 15:50:40 letter sent: Normal Exam ACR BI-RADS Category 2: Benign Finding(s) [id number]
== END ==
PROVIDERS: PCP Internal Medicine; Referring Provider Internal Medicine; Visit Provider Internal Medicine
DX: Z12.31 Encounter for screening mammogram for malignant neoplasm of breast (principal)
CPT/HCPCS: 77063; 77067

== ENCOUNTER → 2020-10-06 12:27 | Outpatient (CLI) | payer MEDICARE, SELFPAY ==
[2020-10-06 13:47] LABS: Add Manual Diff / Slide Review NO; Basophils Absolute Auto 0 /uL (0-100); Basophils Percent Auto 0.7 % (0-2); Eosinophils Absolute Auto 100 /uL (0-450); Eosinophils Percent Auto 2.4 % (2-4); Hematocrit 44.2 % (36-46); Lymphocytes Absolute Auto 2100 /uL (1100-4500); Lymphocytes Percent Auto 36.3 % (25-40); Mean Corpuscular Hemoglobin 31.7 PG (26-34); Mean Corpuscular Volume 93.4 fL (80-100); Monocytes Absolute Auto 500 /uL (0-900); Monocytes Percent Auto 8.2 % (3-14); Neutrophils Absolute Auto 3100 /uL (1500-7000); Neutrophils Percent Auto 52.4 % (50-75); Platelet Count 220 X10^3/uL (150-400); Red Blood Cell Count 4.74 X10^6/uL (4.0-5.2); Red Cell Distribution Width 13.7 % (11.6-14.8); White Blood Cell Count 5.9 X10^3/uL (4.5-11.0)
[2020-10-06 15:52] LABS: Thyroid Stimulating Hormone 1.84 uIU/mL (0.47-4.68)
[2020-10-07 15:04] LABS: Calcium 10.2 mg/dL (8.7-10.3); Parathyroid Hormone, Intact 46 pg/mL (15-65)
== END ==
PROVIDERS: PCP Internal Medicine; Referring Provider Internal Medicine Endocrinology, Diabetes & Metabolism; Visit Provider Internal Medicine Endocrinology, Diabetes & Metabolism
DX: E11.9 Type 2 diabetes mellitus without complications (principal); E03.9 Hypothyroidism, unspecified; M81.0 Age-related osteoporosis without current pathological fracture
CPT/HCPCS: 36415; 82310; 83036; 83970; 84443; 85025

== ENCOUNTER → 2020-10-11 12:50 | Outpatient (CLI) | payer MEDICARE, SELFPAY ==
--- NOTE | 2020-10-11 | DI.RAD.S_ITS ---
PROCEDURE: XR HIP W PEL IF DONE LT 2V INDICATIONS: Spinal stenosis, lumbar region without neurogenic claudicati TECHNIQUE: AP pelvis with lateral view(s) of the left hip(s). COMPARISON: None. FINDINGS: Bones: No fractures or dislocations. Pelvic ring appears intact. No suspicious bony lesions. Patient is status post right hip arthroplasty. 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 Soft tissues: The visualized bowel gas pattern is normal. No suspicious soft tissue calcifications. IMPRESSION: Mild left hip osteoarthritis. Dictated by: Nikole Luciano MD, PhD on 10/11/2020 at 17:21 Approved by: Nikole Luciano MD, PhD on 10/11/2020 at 17:22
--- NOTE | 2020-10-11 | DI.RAD.S_ITS ---
PROCEDURE: XR LUMBAR SPINE MIN 4V INDICATIONS: Spinal stenosis, lumbar region without neurogenic claudicati TECHNIQUE: 5 views of the lumbar spine acquired, including flexion and extension views. COMPARISON: [facility], , XR LUMBAR SPINE MIN 4V, 02/17/2020, 13:59. FINDINGS: Bones: 5 nonrib-bearing vertebrae are present. There is mild L3-L4 and L4-L5 anterolisthesis secondary to facet hypertrophy. Approximately 14? of convex right lumbar spine scoliosis. No vertebral body compression fractures. No suspicious bony lesions. Moderate L3-L4 and L5-S1 degenerative disc disease. Mild L1-L2, L2-L3 and L4-L5 degenerative disc disease. Moderate L2-L3, L3-L4, L4-L5 and L5-S1 facet arthropathy. Soft tissues: Overlying bowel gas pattern is normal. No suspicious soft tissue calcifications. Flexion/extension: There is mildly reduced range of motion, with preserved vertebral body alignment. IMPRESSION: 1. Grade 1 L3-L4 and L4-L5 degenerative spondylolisthesis. 2. Convex right scoliosis. 3. Multilevel degenerative disc disease. 4. Multilevel facet arthropathy. Dictated by: Nikole Luciano MD, PhD on 10/11/2020 at 17:22 Approved by: Nikole Luciano MD, PhD on 10/11/2020 at 17:24
== END ==
PROVIDERS: PCP Internal Medicine; Referring Provider Neurological Surgery; Visit Provider Neurological Surgery
DX: M48.061 Spinal stenosis, lumbar region without neurogenic claudication (principal); M16.12 Unilateral primary osteoarthritis, left hip; M51.36 Other intervertebral disc degeneration, lumbar region; M51.37 Other intervertebral disc degeneration, lumbosacral region; M47.816 Spondylosis without myelopathy or radiculopathy, lumbar region; M47.817 Spondylosis without myelopathy or radiculopathy, lumbosacral region; M41.86 Other forms of scoliosis, lumbar region; M43.16 Spondylolisthesis, lumbar region
CPT/HCPCS: 72110; 73502

== ENCOUNTER → 2020-12-27 12:09 | Outpatient (CLI) | payer MEDICARE, SELFPAY ==
--- NOTE | 2020-12-27 | DI.CT.S_ITS ---
PROCEDURE: CT LUMBAR SPINE WO CON INDICATIONS: Spinal stenosis, lumbar region with neurogenic claudication TECHNIQUE: Noncontrast 3 mm thick sections acquired from the T12 level to the sacrum. Sagittal and coronal reformats were constructed. For radiation dose reduction, the following was used: automated exposure control. COMPARISON: [facility], MR, MR LUMBAR SPINE WO CON, 04/24/2020, 12:42. FINDINGS: There is lumbar dextroscoliosis with right lateral listhesis of L3 on L4 measuring approximately 5 millimeters. There is anterolisthesis of L3 on L4 measuring 3 millimeters, of L4 on L5 measuring 3 millimeters, and retrolisthesis of L5 on S1 measuring 3 millimeters. Vertebral body heights maintained other than scattered Schmorl nodes. Degenerative endplate changes are present at every level, most notable at L5-S1, L3-L4, and T12-L1. No suspicious lytic or blastic osseous lesion. Bulky facet osteoarthropathy at every level in the lumbar spine, worst at L4-L5. Regional soft tissues demonstrate no acute abnormality. Aortic and iliac artery atherosclerosis. Sigmoid diverticulosis. T12-L1: Diffuse disc bulge with a superimposed protrusion in the right subarticular and foraminal zones. There is mild to moderate neural foraminal narrowing on the right. L1-L2: Disc height loss and diffuse disc bulge. No obvious spinal canal or neural foraminal narrowing. L2-L3: Disc bulge flattens and indents the ventral thecal sac with [id number] spinal canal stenosis. Foraminal components of the disc bulge, including a calcified annular component in the right neural foramen, contribute to mild bilateral neural foraminal narrowing. L3-L4: A diffuse disc bulge and posterior osteophytic ridging flatten the ventral thecal sac, combining with bulky facet hypertrophy and buckling of the ligamentum flavum to produce mild-moderate spinal canal stenosis. These factors combine to produce moderate-severe neural foraminal narrowing on the left and mild neural foraminal narrowing on the right. L4-L5: Diffuse disc bulge flattens and indents the ventral thecal sac, producing overall mild spinal canal stenosis. Foraminal components of the disc bulge combine with bulky facet hypertrophy and buckling of the ligamentum flavum to produce mild-moderate neural foraminal narrowing. L5-S1: Retrolisthesis of L5 combines with diffuse disc bulge to mildly displace the descending S1 nerve roots. There is moderate bilateral neural foraminal stenosis with abutment and possible flattening of the exiting L5 nerve roots. IMPRESSION: Multilevel multifactorial degenerative changes, overall similar in appearance to March 2020 MRI. Dictated by: Chito Hernandez M.D. on 12/27/2020 at 14:58 Approved by: Chito Hernandez M.D. on 12/27/2020 at 15:03
== END ==
PROVIDERS: PCP Internal Medicine; Referring Provider Orthopaedic Surgery Orthopaedic Surgery of the Spine; Visit Provider Orthopaedic Surgery Orthopaedic Surgery of the Spine
DX: M48.062 Spinal stenosis, lumbar region with neurogenic claudication (principal); M47.816 Spondylosis without myelopathy or radiculopathy, lumbar region
CPT/HCPCS: 72131

== ENCOUNTER → 2021-01-05 12:59 | Outpatient (CLI) | payer MEDICARE, SELFPAY ==
[2021-01-05 13:06] LABS: Bacteria Urine None Seen; RBC Urine None Seen (0-5/HPF)
[2021-01-05 14:10] LABS: Appearance Urine UA CLEAR; Bilirubin Urine UA NEGATIVE (NEGATIVE); Color Urine UA YELLOW; Glucose Urine UA NEGATIVE (Negative); Ketones Urine UA NEGATIVE (NEGATIVE); Leukocyte Esterase Urine UA 1+ (NEGATIVE); Nitrite Urine UA NEGATIVE (Negative); Occult Blood Urine UA NEGATIVE (Negative); Protein Urine UA NEGATIVE (Negative); Specific Gravity Urine UA 1.015 (1.000-1.035); Urobilinogen Urine UA 0.2 E.U./dL (0.2)
[2021-01-05 14:11] LABS: Add Manual Diff / Slide Review NO; Basophils Absolute Auto 0 /uL (0-100); Basophils Percent Auto 0.6 % (0-2); Eosinophils Absolute Auto 100 /uL (0-450); Eosinophils Percent Auto 1.1 % (2-4); Hematocrit 44.1 % (36-46); Hemoglobin 14.7 g/dL (12.0-16.0); Lymphocytes Absolute Auto 1800 /uL (1100-4500); Lymphocytes Percent Auto 26.1 % (25-40); Mean Corpuscular HGB Conc 33.5 % (30-36); Mean Corpuscular Hemoglobin 31.6 PG (26-34); Mean Corpuscular Volume 94.4 fL (80-100); Monocytes Absolute Auto 500 /uL (0-900); Monocytes Percent Auto 7.4 % (3-14); Neutrophils Absolute Auto 4500 /uL (1500-7000); Neutrophils Percent Auto 64.8 % (50-75); Platelet Count 233 X10^3/uL (150-400); Red Blood Cell Count 4.67 X10^6/uL (4.0-5.2); Red Cell Distribution Width 13.1 % (11.6-14.8); White Blood Cell Count 6.9 X10^3/uL (4.5-11.0)
[2021-01-05 14:29] LABS: Culture Indicated Urine Specimen Cultured; Squamous Epithelial Cell Urine 0-1 /HPF (0-5/HPF); WBC Urine 1-5/HPF (0-5/HPF)
[2021-01-05 14:34] LABS: Blood Urea Nitrogen 13 mg/dL (7-17); Calcium 10.9 mg/dL (8.4-10.2); Carbon Dioxide 26 mmol/L (22-32); Chloride 98 mmol/L (98-107); Estimated Glomerular Filt Rate > 60.0 mL/min (>60); Glucose 185 mg/dL (80-110); HEMOLYSIS < 15 (0-50); Potassium 4.7 mmol/L (3.4-5.1); Sodium 132 mmol/L (137-145)
== END ==
PROVIDERS: PCP Internal Medicine; Referring Provider Orthopaedic Surgery Orthopaedic Surgery of the Spine; Visit Provider Orthopaedic Surgery Orthopaedic Surgery of the Spine
DX: Z01.818 Encounter for other preprocedural examination (principal); Z01.812 Encounter for preprocedural laboratory examination; N39.0 Urinary tract infection, site not specified
CPT/HCPCS: 36415; 80048; 81001; 85025; 87086; 93005

== ENCOUNTER → 2021-01-24 13:44 | Outpatient (CLI) | payer MEDICARE, SELFPAY ==
[2021-01-24 15:41] LABS: COVID19 -Nasal RAPID Negative (Negative)
== END ==
PROVIDERS: PCP Internal Medicine; Visit Provider Physician Assistant
DX: Z01.812 Encounter for preprocedural laboratory examination (principal); Z20.822 Contact with and (suspected) exposure to COVID-19
CPT/HCPCS: 87635

== ENCOUNTER 2021-01-26 06:57 | Inpatient (IN) | payer MEDICARE, SELFPAY ==
[2021-01-18 12:22] VITALS: BMI 19.7
[2021-01-26] VITALS (13 sets, daily range): BP systolic 114–190; BP diastolic 64–94; PULSE 74–107; RESP 10–18; TEMP 35.8–37.7; O2SAT 91–100; BMI 19.7
--- NOTE | 2021-01-26 | DI.RAD.S_ITS ---
PROCEDURE: XR LUMBAR SPINE 2-3V INDICATIONS: L3-S1 TLIF TECHNIQUE: 3 views of the lumbar spine were acquired. COMPARISON: [facility], CR, XR LUMBAR SPINE MIN 4V, 10/11/2020, 12:57. FINDINGS: Spot fluoroscopic intraoperative images demonstrating posterior spinal fixation with paraspinal tano and pedicle screw fixation from L3-S1. There also interbody cage grafts at L3-L4, L4-L5 and L5-S1. Expected intraoperative alignment. Dictated by: Roni Tran M.D. on 01/26/2021 at 15:21 Approved by: Roni Tran M.D. on 01/26/2021 at 15:22
[2021-01-26] MEDS: LACTATED RINGERS 1,000 ML 100 ML IV ×3 (08:26→13:33)
--- NOTE | 2021-01-26 08:46 | PM.PREOP ---
Pre-operative Note COVID-19 COVID-19 status: Negative Result date/Date tested (Pos, Neg/Pending): 01/24/21 Interval Note History & Physical reviewed/Exam performed by Physician: Yes Changes to H&P: No
[2021-01-26] MEDS: CEFAZOLIN 1 GM VIAL 2 GM IV ×3 (09:29→21:27)
--- NOTE | 2021-01-26 09:48 | SUR.OPER ---
Prone on spine table, head in foam head support, padded chest and pelvic supports, gel pad at knees, lower legs supported by pillows; nipples, genitalia and toes free of pressure, arms secured on foam padded arm boards at <90 degrees abduction. Tape over blanket at thigh secured to table.
[2021-01-26] MEDS: BUPIVACAINE LIPOSOME 266 MG/20 ML VIAL INJ (09:56)
[2021-01-26] MEDS: EPINEPHrine 1 MG/ML 0.15 MG INJ (09:57)
[2021-01-26] MEDS: BUPIVACAINE 0.25% (PF) VIAL 30 ML INJ (09:57)
--- NOTE | 2021-01-26 13:22 | SUR.OPER ---
CBG checked at 1321 = 196. Dr. Gifford notified.
--- NOTE | 2021-01-26 14:08 | SUR.OPER ---
CBG rechecked at 1407 = 162. Dr. Gifford notified.
--- NOTE | 2021-01-26 14:39 | P.OP_ITS ---
Operative Date/Time/Diagnoses Date of procedure: 01/26/21 Time of procedure: 09:15 Pre-op diagnosis: 1. L3-4, L4-5, L5-S1 spinal stenosis with radiculopathy 2. Lumbar scoliosis 3. Lumbar post laminectomy syndrome Post-op diagnosis: same Procedure & Clinicians Procedure: 1. L3-4, L4-5, L5-S1 Postero-lateral and posterior interbody fusion 2. L3-4, L4-5, L5-S1 interbody cage placement. 3. L3-4, L4-5, L5-S1 decompressive laminectomy with bilateral facetecomies 4. L3-4, L4-5, L5-S1 Posterior segmental instrumentation 5. Weston of bone marrow from iliac crest 6. Utilization of microsurgical technique and operating microscope 7. Lumbar robotic assisted navigation Same procedure as scheduled: Yes Indications: Patient has been having chronic back pain and worsening lumbar radiculopathy. Patient failed multiple conservative management with worsening pain weakness and numbness in her lower extremity. Patient has been having difficulty performing activity of daily living. After discussing risks benefits of treatment options, patient elected proceed with surgery. Surgeon: Paolo Thompson Reel Blade Bender Furnace Tender: Shannon Zavaleta Click Yes if Unassisted: No Anesthesia Type: General Operative Notes Closure Type: primary Specimen(s): none sent Prosthetic devices, grafts, tissues, transplants, or devices: Globus CREO MIS pedicle screws, Rise cages Applied: catheter Estimated Blood Loss (mL): 200 Blood products transfused: none Procedure in detail: Patient was seen in the preoperative area. Risks and benefits of the surgery was discussed with the patient. Informed consent was obtained from the patient and placed in the chart. Surgical site was marked. Patient was taken to the operative room. General anesthesia was administered. Prophylactic antibiotic was given to the patient less than 30 min before the incision was made. Patient was placed into a prone position on the Jimmy table. Patient's back was then prepped and draped in the sterile fashion. Time- out was performed at this time. After patient was prepped and draped, patient's PSIS was palpated and marked bilaterally. Small 1 cm incision was made over the PSIS for placement of the reference probes. Two trocar was placed into the PSIS 1 on each side. The reference probe was attached to the trocar of the reference apparatus. At this time the C-arm imaging was used to confirm AP and lateral of L3-4, L4- L5, L5-S1 vertebrae and merged the C-arm imaging using the [employer] robotic navigation system with the CT of the lumbar spine. After successful merging was completed and confirmed, skin marker was used to crystal out the skin incision using the [employer] robotic arm. Bilateral incision was made at this time. Pre templated trajectory was used and guided using the [employer] robotic navigation system for bilateral L3, L4, L5, S1 pedicle screw placement. This was done by using the robotic arm to guide the high-speed bur to make a cortical entry point. Next a drill was placed also using the robotic arm and guided using the navigation system drilling partially through bilateral L3, L4, L5 and S1 pedicles. Next L3, L4, L5, S1 pedicle screws it was pre templated and measured was placed onto the power tanker truck driver and inserted into the pedicles bilaterally. After all 8 screws were placed C-arm imaging was taken of both AP and lateral to confirm the placement. Excellent placement of the screws were confirmed and a matched precisely with the pre planned screw placement using the navigation system. MARs retractor was inserted using [employer] guidence. Globus MARS retractors was placed inside the incision and docked onto the L3, L4 and L5 lamina. Using microsurgical technique and operating microscope, a L3, L4, L5 laminectomy and L3-4, L4-5, L5-S1 facetectomy was performed using a Kerrison rongeur. Patient was found have severe lateral recess and neural foramen stenosis which was fully decompressed after the laminectomy facetectomy. More than 75% of the facets were removed during the process of decompression carlotta dering L3-4, L4-5, L5-S1 level grossly unstable and required a fusion procedure at the same time. The disc space at L3-4, L4-5, L5-S1 was identified, and a total diskectomy was performed at L3-4, L4-5, L5-S1 level. The endplates were decorticated using a rasp and shaver. The total diskectomy and decortication was performed at L3-4, L4-5, L5-S1 level in order to to accomplish a L3-4, L4-5, L5-S1 fusion. The local bone from the laminectomy and facetectomy was saved for local bone grafting. After the total diskectomy and decortication was completed, Trifecta bone graft material was combined with local bone that was harvested earlier. At this time, a separate skin is incision was made over the iliac crest. A Jamshidi needle was inserted into the iliac crest through a separate skin inci stefania. 5 cc of bone marrow aspiration was obtained through the separate skin incision using a Jamshidi needle from the iliac crest. The bone marrow aspiration was combined with local bone and the Trifecta bone grafting material. The bone grafting material was placed into the L3-4, L4-5, L5-S1 interbody space along with a expandable cage. The cage was expanded to its maximum height using the torque limiting screwdriver. The disc preparation as well as the cage insertion were also performed under navigation guidance. After the cage was placed, AP and lateral C-arm imaging was taken to confirm placement of the cage and excellent position was confirmed. Globus MARS retractor was inserted and docked onto the L3-4, L4-5, L5-S1 posterolateral gutter on the right side. Using the power drill, posterior- lateral decortication was performed at L3-4, L4-5, L5-S1 level until bleeding cortical bone was identified. The remaining bone grafting material was placed into the L3-4, L4-5, L5-S1 posterior lateral gutter he order to accomplish posterolateral fusion at the L3-4, L4-5, L5-S1 level. At this time the tulips were attached to the L3, L4, L5, S1 pedicle screw shanks. After measuring the length of the rods, they were inserted into the tulips of the pedicle screws and locked in place using locking caps and torque limiting screwdriver bilaterally. Total 6 caps and 2 titanium rods was used in order to complete the posterior instrumentation construct. After all the hardware was placed, and confirmed with AP and lateral C-arm imaging, the wound was then irrigated with sterile normal saline and packed with Ray-Oniel gauze for 3 min to accomplish hemostasis. After the gauze was removed the deep fascia was closed with #1 Vicryl suture. The subcutaneous layer was closed with 2-0 Vicryl. The skin was closed with skin rajni. Patient tolerated the procedure well. There were no complications. Neuro monitoring system was used to monitor patient's neurologic status throughout entire procedure. There was no disturbance of the neural monitoring signals throughout the case. Complications: none Post-operative Condition: stable Disposition: PACU Plan for aftercare: Admit to inpatient hospital
[2021-01-26] MEDS: INSULIN REGULAR 100 UNIT/ML 3 ML VIAL SUBCUT (14:47)
[2021-01-26] MEDS: HYDROMORPHONE 2 MG INJ IV (14:52)
[2021-01-26] MEDS: fentaNYL 100 MCG/2 ML INJ IV (14:57)
[2021-01-26] MEDS: OXYCODONE/ACETAMINOPHEN 5/325 TABLET 1 TAB PO (15:26)
--- NOTE | 2021-01-26 15:59 | SUR.PHASEI ---
Stable PACU stay, medicated with fentanyl and dilaudid and percocet after applesauce tolerated. Pt with facial edema, to include eyes, follows commands, neuro checks wnl. Pt transported up to room on room air, sats 95% on room air, pt placed on 1/l. Pt left with MARIANNE Connell oin stable condition dressing c/d/i, bed down, locked and scd's on.
[2021-01-26] MEDS: ONDANSETRON 4 MG/2 ML INJ (16:38)
[2021-01-26] MEDS: SODIUM CHLORIDE 0.9% 1,000 ML 100 ML IV (16:38)
[2021-01-26] MEDS: HYDROMORPHONE 0.5 MG INJ IV (17:09)
[2021-01-26] MEDS: ACETAMINOPHEN 325 MG TABLET 650 MG PO (17:20)
[2021-01-26] MEDS: hydrOXYzine pamoate 25 MG CAPSULE PO (17:21)
[2021-01-26] MEDS: METOCLOPRAMIDE 10 MG/2 ML INJ IV (20:01)
[2021-01-26] MEDS: HYDROMORPHONE 1 MG INJ IV (20:01)
[2021-01-26] MEDS: TRAZODONE 100 MG TABLET PO (21:22)
[2021-01-26] MEDS: CYCLOBENZAPRINE 10 MG TABLET PO (21:22)
[2021-01-26] MEDS: ZOLPIDEM 5 MG TABLET 2.5 MG PO (21:22)
[2021-01-26] MEDS: SENNOSIDES 8.6 MG TABLET 17.2 MG PO (21:22)
[2021-01-26] MEDS: DOCUSATE 100 MG CAPSULE PO (21:22)
[2021-01-27] VITALS (7 sets, daily range): BP systolic 149–164; BP diastolic 67–89; PULSE 106–126; RESP 18; TEMP 36.8–37.3; O2SAT 94–98
--- NOTE | 2021-01-27 00:08 | PC.NURSE ---
Report received from PACU. Pt arrived at 1545. VSS. Very drowsy, forgetful, but oriented x all. Had difficulties with pain management and nausea control (emesis x2). Called Dr. Mendez for additional orders; successfully got nausea and pain under control. Goal is to advance to PO pain meds.
[2021-01-27] MEDS: CYCLOBENZAPRINE 10 MG TABLET PO ×3 (00:31→21:26)
[2021-01-27] MEDS: SODIUM CHLORIDE 0.9% 1,000 ML 100 ML IV (01:51)
[2021-01-27] MEDS: HYDROMORPHONE 1 MG INJ IV (01:59)
[2021-01-27] MEDS: OXYCODONE IR 5 MG TABLET 10 MG PO (05:21)
[2021-01-27] MEDS: CEFAZOLIN 1 GM VIAL 2 GM IV (05:24)
[2021-01-27 06:04] LABS: Hematocrit 35.3 % (36-46); Hemoglobin 11.9 g/dL (12.0-16.0)
--- NOTE | 2021-01-27 08:29 | PM.PNPO.1 ---
Subjective Subjective Date Patient Seen: 01/27/21 Time Patient Seen: 08:29 Interval history: Patient states she is doing well overall but reports a 9/10 pain intensity. At this time patient denies fever, chills, nausea, chest pain, or shortness of breath. Patient states that her pain is primarily located around the incision site of her lower back with associated pain along the anterior portion of her left thigh. Exam Vital Signs (past 8 hours): - 01/27/21 05:00 Temperature 98.7 F Pulse Rate 109 H Respiratory Rate 18 Blood Pressure 156/82 H Pulse Oximetry 97 Oxygen Delivery Method Nasal Cannula Oxygen Flow Rate 0 Narrative Exam Narrative: 76-year-old female postop day 1 status post lumbar fusion. Patient is resting comfortably in bed, is in no acute distress, and is alert and oriented x3. Skin is warm and dry, and the skin surrounding the incision site is free of erythema, warmth, induration, or discharge. Good sensation appreciated throughout the bilateral lower extremities to light touch. Ankle dorsiflexion, plantar flexion, eversion, inversion performed bilaterally without difficulty or discomfort. Calves are soft and nontender, negative Homans sign. DP pulses palpated bilaterally and are even. No signs of DVT appreciated. Const General: cooperative, healthy appearing and comfortable Resp Effort & Inspection: normal respiratory effort and able to speak in complete sentences Skin General: no rashes or lesions noted Objective Labs Result Diagrams: 01/27/21 05:20 Labs: Laboratory Results - last 24 hr 01/27/21 05:20 Hgb 11.9 L Hct 35.3 L PFSH Medical History Anxiety Arthritis BCC (basal cell carcinoma) Carpal tunnel syndrome, bilateral Facet arthropathy, lumbar Insomnia Spinal stenosis Spondylolisthesis TIA (transient ischemic attack) (~2011) Trigger finger Ulnar tunnel syndrome Surgical History H/O cardiac radiofrequency ablation H/O hysterectomy for benign disease History of carpal tunnel surgery of right wrist History of heart surgery (~2011) History of laminectomy (~2003) History of tonsillectomy and adenoidectomy History of total right hip arthroplasty (11/16/15) Hx of appendectomy Hx of bilateral cataract extraction (2015) Hx of laminectomy (~1984) Hx of removal of cyst (1984) Hx of shoulder surgery Family History Father Stroke Social History household members: spouse Smoking Status: Former smoker alcohol intake: current Assessment & Plan Post-op Postoperative Procedures: Procedures Operation Date: 01/26/21 08:45 Actual Procedure Side Surgeon p L3-4, L4-5, L5-S1 TLIF w/posterior instrumentation Paolo Thompson MD Postoperative day: 1 Postoperative status: marginal pain control Postoperative plan: ambulate Postoperative plan narrative: Patient is to work on ambulation with the assistance of a front wheeled walker with physical therapy. Current pain management regimen is to be continued with the addition of Decadron a possibility pending worsening pain. We will continue to monitor the patient's pain level and progress with physical therapy. Plan for discharge likely home in the next 1-2 days. Meds Home Medications and Allergies Home Medications Medication Instructions Recorded Confirmed Type ascorbic acid (vitamin C) 500 mg 1,000 mg PO DAILY cap 10/19/17 01/26/21 History capsule cholecalciferol (vitamin D3) 75 50 mcg PO DAILY 10/19/17 01/26/21 History mcg (3,000 unit) tablet levothyroxine 50 mcg tablet 50 mcg PO DAILY 10/19/17 01/26/21 History (Synthroid) magnesium 250 mg tablet 250 mg PO DAILY 10/19/17 01/26/21 History glimepiride 1 mg tablet 4 mg PO QAM tab 11/25/19 01/26/21 History trazodone 100 mg tablet 100 mg PO BEDTIME PRN #90 tab 02/18/20 01/26/21 Rx celecoxib 200 mg capsule (Celebrex) 200 mg PO DAILY #90 cap 11/24/20 01/26/21 Rx cyclobenzaprine 10 mg tablet See Rx Instructions .ROUTE 01/18/21 01/26/21 History .COMPLEX PRN diphenhydramine HCl 25 mg capsule 50 mg PO BEDTIME PRN 01/18/21 01/18/21 History (Benadryl) propranolol 40 mg tablet 20 mg PO DAILY PRN 01/18/21 01/26/21 History semaglutide 7 mg tablet (Rybelsus) 7 mg PO DAILY 01/18/21 01/26/21 History zolpidem 5 mg tablet 2.5 mg PO BEDTIME PRN 01/18/21 01/26/21 History Allergies Allergy/AdvReac Type Severity Reaction Status Date / Time meperidine [MEPERIDINE] AdvReac Mild HYPERTENSIO Verified 01/26/21 07:53 N
[2021-01-27] MEDS: ACETAMINOPHEN 325 MG TABLET 650 MG PO (09:39)
[2021-01-27] MEDS: LEVOTHYROXINE 50 MCG TABLET PO (09:39)
[2021-01-27] MEDS: CHOLECALCIFEROL (VITAMIN D3) 1,000 UNIT TABLET 3000 UNIT PO (09:39)
[2021-01-27] MEDS: DOCUSATE 100 MG CAPSULE PO ×2 (09:39→21:26)
[2021-01-27] MEDS: GLIMEPIRIDE 2 MG TABLET 4 MG PO (09:43)
--- NOTE | 2021-01-27 10:15 | PT.IIE ---
Surgery Performed Operation Date: 01/26/21 08:45 Actual Procedures p L3-4, L4-5, L5-S1 TLIF w/posterior instrumentation - Paolo Thompson MD Medical History (Last Reviewed 01/27/21 @ 08:31 by Sergey Winn PA-C) Anxiety Arthritis BCC (basal cell carcinoma) Carpal tunnel syndrome, bilateral Facet arthropathy, lumbar Insomnia Spinal stenosis Spondylolisthesis TIA (transient ischemic attack) (~2011) Trigger finger Ulnar tunnel syndrome Physical Therapy Inpatient Evaluation/Re-Eval M1 PT/OT-IP Prior Functional Status Start: 01/27/21 13:20 Freq: NEEDED Status: Active Protocol: Document 01/27/21 10:15 AB (Rec: 01/27/21 13:37 AB [email or web address]) Medical Review Prior Functional Status Medical History Reviewed Yes Communication able to make needs known but with confusion Mobility and Gait pt sated that she is independent with all mobilities and ambulation without AD Social History Household Members spouse Living Arrangements House Number of Floors (Floors) 3 or More Floors Number of Stairs To Enter/Railing? 10 steps with R rail descending to enter the house; pt stays on first level of the house Home Environment Standard Height Toilet,Walk in Shower,Built-In Shower Seat Home Equipment Straight Cane Additional Social History Comment has an adjustable bed pt's [id number] will be able to stay with pt to assist her; spouse will not be able to assist pt (will be getting nerve stimulator equipement set up and has lifting restrictions) spouse stated that he is going to borrow a FWW from the soropt[employer]ist for pt M2 PT-IP Current Condition Start: 01/27/21 13:20 Freq: NEEDED Status: Active Protocol: Document 01/27/21 10:15 AB (Rec: 01/27/21 13:37 AB [email or web address]) Physical Therapy Current Condition Current Condition Evaluation Date 01/27/21 Treatment Diagnosis s/p L3-4, L4-5, L5S1 fusion/ lami; difficulty in walking Onset Date 01/26/21 Precautions Lumbar Precautions Log Roll,No Twisting,Limit Bending,Lifting Restriction of 10 lbs,Gait Belt above Incisional Area M3 PT-IP Subjective Start: 01/27/21 13:20 Freq: NEEDED Status: Active Protocol: Document 01/27/21 10:15 AB (Rec: 01/27/21 13:37 [email or web address]) Subjective Physical Therapy Visit Type Type Initial Evaluation Visit Start Time 10:15 Visit Stop Time 10:55 Total Visit Minutes 40 Number of SLACK LINE YARDER Visits 0 Physical Therapy Visit Comments Patient Comments c/o increase pain but agreeable to do PT Therapy Pain Assessment Pain When Pain Assessed At Rest Pain Present Pain Present Pain Reported Location Lower Back Intensity 9 Pain Management Techniques Distraction,Modification of Treatment,Re-positioning, Timing of Activity with Medications 5 Intensity 9 M4 PT-IP Mobility and Gait Start: 01/27/21 13:20 Freq: NEEDED Status: Active Protocol: Document 01/27/21 10:15 AB (Rec: 01/27/21 13:37 [email or web address]) PT-Bed Mobility Assessment Rolling Type of Rolling Log Rolling Level of Assist Maximal Assistance Supine to Sit Supine to Sit Maximum Assistance,1 Person Assistance,2 Person Assistance Scooting Scooting to Edge of Bed Maximum Assistance PT-Transfer Assessment Sit to and From Stand Sit to and from Stand Maximum Assistance,2 Person Assistance,Use of Upper Extremities Equipment Transfer Assistive Device Gait Belt,Front Wheeled Walker Orthotic/Prosthetic Devices or Brace: No Transfers Transfer Destination Chair Transfer Technique Stand Step Pivot Transfer Ability Level of Assist Maximum Assistance,1 Person Assistance,Use of Upper Extremities Comments Mobility Comments educated pt on back precautions and log roll bed mobility. pt with confusion and has decrease safety awareness. completed supine to sit log roll max A x 1-2 and max cues. pt sat on EOB min A and cues. required max A to scoot to EOB. completed sit to stand max A x 2 and max cues and step transfer to chair using FWW max A x 2 and max cues. pt agreed to ambulate. completed sit to stand from chair max A x 2 and max cues and ambulated ~ 10 ft using FWW max A x 1-2 and max cues. presents with unsteady gait with increase bilateral knee flexion during stance. requires max cues with all tasks. agreed to sit up on chair. positioned on chair. call light and table placed wtihin reach. informed pt and spouse regarding SNF recommendation at this time vs home with 24/7 assist requiring 2 person max A. Gait Assessment Gait Gait Assistance Required: Maximum Assistance,1 Person Assist,2 Person Assist Distance (Feet) 10 Able to Maintain Weight Bearing Status Yes During Gait Assistive Devices Assistive Device Gait Belt,Front Wheeled Walker Orthotic/Prosthetic Devices or Brace: No Gait Deviations General Gait Pattern Antalgic,Decreased Stride Length,Decreased Feet Clearance,Step-to Gait Factors Limiting Gait Function Factors Limiting Gait Function Decreased Activity Tolerance, Decreased Strength,Difficulty Following Directions,Limited Range of Motion,Pain,Poor Balance,Poor Safety Awareness PT-Balance Assessment Sitting Balance and Reactions Static Sitting Balance Ability Fair Dynamic Sitting Balance Ability Fair Standing Balance and Reactions Static Standing Balance Ability Poor Dynamic Standing Balance Ability Poor Device Used FWW M5 PT-IP Objective Assessments Start: 01/27/21 13:20 Freq: NEEDED Status: Active Protocol: Document 01/27/21 10:15 AB (Rec: 01/27/21 13:37 AB [email or web address]) Orientation Orientation/Cognition Level of Alertness Confusional State Orientation Name Safety Awareness Decreased Safety Awareness Memory Description Short Term Impaired Gross Range of Motion Lower Extremity ROM Assessment Within Functional Limits Strength Lower Extremity Strength Assessment Bilaterally Impaired Hip 3+/5 Knee 3+/5 Sensation Assessment Sensation Gross Sensation WNL Muscle Tone Muscle Tone WNL Yes M6 PT-IP Treatment Start: 01/27/21 13:20 Freq: NEEDED Status: Active Protocol: Document 01/27/21 10:15 AB (Rec: 01/27/21 13:37 AB [email or web address]) Physical Therapy Treatment Education Education Provided Precautions,Weight Bearing Status,Post-Op Packet,Safety M7 PT-IP Assessment and Plan Start: 01/27/21 13:20 Freq: NEEDED Status: Active Protocol: Document 01/27/21 10:15 AB (Rec: 01/27/21 13:37 AB [email or web address]) PT Summary Assessment and Plan Potential Rehabilitation Potential Fair Status of Condition at Evaluation Evolving Summary Impairments Pain,ROM,Strength,Balance, Coordination,Sensation,Tone, Cognition,Bed Mobility, Transfers,Gait,Activity Tolerance Assessment Summary pt requiring max A x 2 with mobility and has decrease activity tolerance. informed pt and spouse regarding SNF rehab recommendation at this time. pt and spouse hesistant but understood. spouse stated that pt will be in the hospital for 3 days according to the doctor and will be better by that time. informed spouse that PT will work with pt during hospital stay and will assess safe d/c plan each tx session. At this time, pt will require 24/7 assist avaible x 2 person max A. currently, pt is not appropriate to do stair climbing and only tolerated 10 ft of ambulation max Ax 1-2 and max cues. Goals Bed Mobility Goal Standby Assistance Transfer Goal Independent,Front Wheeled Walker Gait Goal Standby Assistance,Front Wheel Walker Gait Distance 150 Other Goals up/down 10 steps L rail ascending SBA Days to Meet Goals 10 Frequency of Treatment Frequency Of Treatment Twice a Day Treatment Plan Physical Therapy Treatment Plan Bed Mobility Training,Transfer Training,Gait Training, Therapeutic Exercise,Balance Retraining,Post Op Education, Discharge Planning,Hot or Cold Pack,Neuromuscular Re-ed, Coordination Retraining,Manual Therapy Precautions Lumbar Precautions Log Roll,No Twisting,Limit Bending,Lifting Restriction of 10 lbs,Gait Belt above Incisional Area Recommendations To Nursing Amount of Assist Needed 2 Person Assist Discharge Recommendations PT Discharge Recommendations Home with 18/12 Assist Available,Home Health,SNF Rehab,Home vs SNF Equipment Needed for Home Before FWW Discharge Transportation Needs at Discharge Private Vehicle,Wheelchair/ Cabulance
--- NOTE | 2021-01-27 11:02 | CM.DANOTE ---
Addendum entered by Josephine Mondragon R.N. 01/27/21 12:14: Maryanne from [facility] indicated, they can take patient over the week-end if needed. They do have female beds available. Faxed over the referral or her to review. Addendum entered by Josephine Mondragon R.N. 01/27/21 11:48: Met with patient and , Jermaine, at his request. He wanted to know if there were any resources as far as personal caregivers. Let him know that this case reviewer can have him review the Senior Resources Book, as there are agencies, such as [facility]. He is planning on calling them. Let him know that it may take time to get caregivers to come into the home. Did discuss home health versus skilled. indicated that he had been to [facility] before, was kind of depressing. Stated, would be willing to go to [facility] if needed. Encouraged them to find an alternate facility, in case they can't accept. Gave referral to Tristan at [facility], but is not sure if they will have staff on the weekend to take patients. Called and left messages with both [facility] and [facility] to see if they have availabilities. Patient could also go home, P.T. will work with her. Home health may also be an option for patient. Original Note: DCP: Case received, EMR reviewed and met with patient. Introduced self and role. Was able to obtain information regarding patient's baseline activity status prior to surgery, as well as her current living situation. DCP assessment completed with information currently available. Patient is a 76 year old female who admitted yesterday morning to the care of the orthopedic team. PCP: Dr. Marietta Savage. Payer: confirmed: Medicare/[employer]. Patient came to the hospital via private vehicle for a surgical procedure. She had L3-4, L4-5, L5-S1 tlif postero-lateral & posterior interbody fusion. Patient has history of spinal stenosis and lumber scoliosis. Met with patient in her room. She was sitting up in bed, some discomfort, did not sleep well last night. Patient is alert and oriented. Confirmed with her that she is independent at her baseline, and that she resides here in [place] with her spouse, Jermaine. She indicated, he is supportive, should be able to assist me when I get discharged. She has not yet worked with [facility]. Flavio: DAVID to continue to follow. Patient should be able to go home when medically stable, will need to see how she does with P.T. Josephine Mondragon RN/Flower [employer]er
[2021-01-27] MEDS: ASCORBIC ACID 500 MG TABLET 1000 MG PO (11:07)
--- NOTE | 2021-01-27 13:32 | PT.IPTN ---
Surgery Performed Operation Date: 01/26/21 08:45 Actual Procedures p L3-4, L4-5, L5-S1 TLIF w/posterior instrumentation - Paolo Thompson MD Physical Therapy Treatment Note M2 PT-IP Current Condition Start: 01/27/21 13:20 Freq: NEEDED Status: Active Protocol: Document 01/27/21 10:15 AB (Rec: 01/27/21 13:37 AB [email or web address]) Physical Therapy Current Condition Current Condition Evaluation Date 01/27/21 Treatment Diagnosis s/p L3-4, L4-5, L5S1 fusion/ lami; difficulty in walking Onset Date 01/26/21 Precautions Lumbar Precautions Log Roll,No Twisting,Limit Bending,Lifting Restriction of 10 lbs,Gait Belt above Incisional Area M3 PT-IP Subjective Start: 01/27/21 13:20 Freq: NEEDED Status: Active Protocol: Document 01/27/21 13:32 AW (Rec: 01/27/21 13:44 AW [email or web address]) Subjective Physical Therapy Visit Type Type Treatment Note Visit Start Time 13:03 Visit Stop Time 13:32 Total Visit Minutes 29 Notes Pt's spouse was present throughout tx Number of SPOUT LINER Visits 0 Physical Therapy Visit Comments Patient Comments Pt agrees to work with PT Therapy Pain Assessment Pain When Pain Assessed During Mobility Pain Present Pain Present Pain Reported Location Lower Back Intensity 8 Pain Management Techniques Distraction,Modification of Treatment,Re-positioning, Timing of Activity with Medications M4 PT-IP Mobility and Gait Start: 01/27/21 13:20 Freq: NEEDED Status: Active Protocol: Document 01/27/21 13:32 AW (Rec: 01/27/21 16:25 AW [email or web address]) PT-Transfer Assessment Sit to and From Stand Sit to and from Stand Maximum Assistance,1 Person Assistance,Use of Upper Extremities Equipment Transfer Assistive Device Gait Belt,Front Wheeled Walker Orthotic/Prosthetic Devices or Brace: No Transfers Transfer Destination Chair Transfer Technique Stand Step Pivot Transfer Ability Level of Assist Moderate Assistance,Maximum Assistance,1 Person Assistance ,Use of Upper Extremities Comments Mobility Comments Pt was up at sink with GUIDE DOG MOBILITY INSTRUCTOR as PT arrived. She needed cues to maintain precautions while standing at the sink. PT took over and pt agreed to practice sit to stand. She walked to the sink with FWW mod A x 1 and needed max cues and assist to transfer safely. She stood max A x 1 and agreed to ambulate, walking 40 feet with FWW min-mod assist. Pt c/o increased pain during gait but no buckling or LOB was noted. On return to the room, she sat on the chair with waffle cushion mod-max assist for controlled descent. She stood twice more max assist and then ambulated in the room a total of 20 feet. She states preference for return to chair and transferred mod assist with cues and demonstration for hip hinge. Pt was left in maximally reclined position with call light in reach, chair alarm armed for safetly. Gait Assessment Gait Gait Assistance Required: Minimum Assistance,Moderate Assistance,1 Person Assist Distance (Feet) 40 Able to Maintain Weight Bearing Status Yes During Gait Assistive Devices Assistive Device Gait Belt,Front Wheeled Walker Orthotic/Prosthetic Devices or Brace: No Gait Deviations General Gait Pattern Antalgic,Decreased Stride Length,Decreased Feet Clearance,Step-to Gait Factors Limiting Gait Function Factors Limiting Gait Function Decreased Activity Tolerance, Decreased Strength,Difficulty Following Directions,Limited Range of Motion,Pain,Poor Balance,Poor Safety Awareness Comments Gait Comments See mobility comments for details. M5 PT-IP Objective Assessments Start: 01/27/21 13:20 Freq: NEEDED Status: Active Protocol: Document 01/27/21 10:15 AB (Rec: 01/27/21 13:37 AB [email or web address]) Orientation Orientation/Cognition Level of Alertness Confusional State Orientation Name Safety Awareness Decreased Safety Awareness Memory Description Short Term Impaired Gross Range of Motion Lower Extremity ROM Assessment Within Functional Limits Strength Lower Extremity Strength Assessment Bilaterally Impaired Hip 3+/5 Knee 3+/5 Sensation Assessment Sensation Gross Sensation WNL Muscle Tone Muscle Tone WNL Yes M6 PT-IP Treatment Start: 01/27/21 13:20 Freq: NEEDED Status: Active Protocol: Document 01/27/21 13:32 AW (Rec: 01/27/21 13:44 AW [email or web address]) Physical Therapy Treatment Education Education Provided Precautions,Safety Other Treatments Other Treatment Performed Educated pt and her spouse on current level of assist required for mobility as related to discharge planning. M7 PT-IP Assessment and Plan Start: 01/27/21 13:20 Freq: NEEDED Status: Active Protocol: Document 01/27/21 13:32 AW (Rec: 01/27/21 13:44 AW [email or web address]) PT Summary Assessment and Plan Summary Impairments Pain,ROM,Strength,Balance, Coordination,Sensation,Tone, Cognition,Bed Mobility, Transfers,Gait,Activity Tolerance Progress Towards Goals Progressing Toward Goals,Slow Progress due to Pain,Slow Progress due to Activity Tolerance Assessment Summary Pt required max A x 1 for sit to stand and min-mod assist for ambulation 40 feet in the halls. Pt states her will be limited in ability to assist at home. Her daughter in law just had abdominal surgery and will be similarly limited. Recommendation is for SNF vs home with 24/7 assist and home health. Assist will need to come from outside family - possibly private pay. Will continue to assess progress and schedule caregiver training if pt can identify primary caregiver. Pt states her family will go to [facility] FWW. Goals Bed Mobility Goal Standby Assistance Transfer Goal Independent,Front Wheeled Walker Gait Goal Standby Assistance,Front Wheel Walker Gait Distance 150 Other Goals up/down 10 steps L rail ascending SBA Days to Meet Goals 10 Frequency of Treatment Frequency Of Treatment Twice a Day Treatment Plan Physical Therapy Treatment Plan Bed Mobility Training,Transfer Training,Gait Training, Therapeutic Exercise,Balance Retraining,Post Op Education, Discharge Planning,Hot or Cold Pack,Neuromuscular Re-ed, Coordination Retraining,Manual Therapy Precautions Lumbar Precautions Log Roll,No Twisting,Limit Bending,Lifting Restriction of 10 lbs,Gait Belt above Incisional Area Recommendations To Nursing Amount of Assist Needed 1 Person Assist,2 Person Assist Discharge Recommendations PT Discharge Recommendations Home with 24/7 Assist Available,Home Health,SNF Rehab,Home vs SNF Equipment Needed for Home Before FWW Discharge Transportation Needs at Discharge Private Vehicle,Wheelchair/ Cabulance
--- NOTE | 2021-01-27 14:40 | OT.IPNOTE ---
Pt very pleasant but in too much pain at this time 12/04 and wanting pain medication, nursing notified. To check on pt tomorrow for OT eval.
[2021-01-27] MEDS: TRAMADOL 50 MG TABLET 100 MG PO ×2 (15:46→21:26)
[2021-01-27] MEDS: dexAMETHasone 4 MG TABLET PO (16:35)
[2021-01-27] MEDS: ZOLPIDEM 5 MG TABLET 2.5 MG PO (23:50)
[2021-01-27] MEDS: TRAZODONE 100 MG TABLET PO (23:50)
[2021-01-27] MEDS: hydrOXYzine pamoate 25 MG CAPSULE PO (23:50)
--- NOTE | 2021-01-28 02:36 | PC.NURSE ---
Patient is currently alert and oriented but very anxious and particular about how things need to be done. Breath sounds CTA with RA sat of 94%. HRR but tachy at 114 bpm and elevated BP of 162/68; BP has been trending high. Denied nausea. BT present but denies having passed flatus as yet since surgery. Denies dysuria, frequency or urgency with urination. Is able to move self in bed. Up in chair at shift change and assisted back into bed using walker and 1 assist to get legs back into the bed. Dressing to back intact with shadow drainage noted. Did complain of 7/10 pain at shift change and had had Tramadol and Flexeril at 2125 so medicated with Vistaril, repositioned onto side and ice pack applie; is currently asleep. Refused to have SCD's reapplied so reminded to ankle wave when awake. Fall risk score is high and bed alarm is activated.
[2021-01-28 02:59] VITALS: BP 156/76; PULSE 112; RESP 18; TEMP 36.2; O2SAT 94
[2021-01-28 08:45] VITALS: BP 153/90; PULSE 106; RESP 18; TEMP 36.3; O2SAT 94
[2021-01-28] MEDS: DOCUSATE 100 MG CAPSULE PO (09:09)
[2021-01-28] MEDS: ASCORBIC ACID 500 MG TABLET 1000 MG PO (09:09)
[2021-01-28] MEDS: GLIMEPIRIDE 2 MG TABLET 4 MG PO (09:09)
[2021-01-28] MEDS: LEVOTHYROXINE 50 MCG TABLET PO (09:10)
[2021-01-28] MEDS: SEMAGLUTIDE 7 MG 7 EACH PO (09:10)
[2021-01-28] MEDS: CHOLECALCIFEROL (VITAMIN D3) 1,000 UNIT TABLET 3000 UNIT PO (09:10)
[2021-01-28] MEDS: TRAMADOL 50 MG TABLET 100 MG PO ×2 (09:10→12:38)
[2021-01-28] MEDS: ACETAMINOPHEN 325 MG TABLET 650 MG PO (09:10)
--- NOTE | 2021-01-28 09:21 | P.DS_ITS ---
History of Present Illness History of Present Illness Date Patient Seen: 01/28/21 Time Patient Seen: 09:22 Chief complaint: lumbar pain and radiculitis Narrative: The patient is complaining of mild back pain this morning, which is well controlled with current pain regimen. She denies any fevers, chills, night sweats. She denies any numbness or tingling in bilateral lower extremities. She is working with physical therapy. Overall she is improving. She is 2 days status post L3-4, L4-5, L5-S1 fusion Discharge Providers Provider Date of admission: 01/26/21 06:57 Discharge Date: 01/28/21 Primary care physician: Marietta Savage MD Consults: 01/18/21 14:22 Consult to Anesthesiology Routine Comment: Consulting Provider: Anesthesiologist Reason for consultation: PAC courtesy re: Abnormal pre-op EKG 01/26/21 15:57 Consult to Occupational Therapy Evaluate & Treat Comment: Physician Instructions: Evaluate and treat Consult to Physical Therapy Evaluate & Treat Comment: Physician Instructions: Evaluate and Treat Discharge provider: Shannon Zavaleta PA-C Summary Hospital Course Discharge Diagnosis: 1. L3-4, L4-5, L5-S1 spinal stenosis with radiculopathy 2. Lumbar scoliosis 3. Lumbar post laminectomy syndrome Hospital Course: Procedure: 1. L3-4, L4-5, L5-S1 Postero-lateral and posterior interbody fusion 2. L3-4, L4-5, L5-S1 interbody cage placement. 3. L3-4, L4-5, L5-S1 decompressive laminectomy with bilateral facetecomies 4. L3-4, L4-5, L5-S1 Posterior segmental instrumentation 5. [place] of bone marrow from iliac crest 6. Utilization of microsurgical technique and operating microscope 7. Lumbar robotic assisted navigation Same procedure as scheduled: Yes Indications: Patient has been having chronic back pain and worsening lumbar radiculopathy. Patient failed multiple conservative management with worsening pain weakness and numbness in her lower extremity.? Patient has been having difficulty performing activity of daily living.? After discussing risks benefits of treatment options, patient elected proceed with surgery. Surgeon: Paolo Thompson [employer]cre[employer] Helicopter: Shannon Zavaleta Click Yes if Unassisted: No Anesthesia Type: General Operative Notes Closure Type: primary Specimen(s): none sent Prosthetic devices, grafts, tissues, transplants, or devices: Globus CREO MIS pedicle screws, Rise cages Applied: catheter Estimated Blood Loss (mL): 200 Blood products transfused: none Status at Discharge Cognitive/behavioral status at discharge: oriented Functional status at discharge: uses cane/walker Overall status at discharge: patient is progressing back to baseline Exam Vital Signs (past 8 hours): - 01/28/21 02:59 Temperature 97.1 F L Pulse Rate 112 H Respiratory Rate 18 Blood Pressure 156/76 H Pulse Oximetry 94 Oxygen Delivery Method Room Air Oxygen Flow Rate 0 Narrative Exam Narrative: 68-year-old female, resting comfortably in bed, no acute distress. Incision is clean, dry, intact. Motor functions are intact in bilateral lower extremities. Sensation is grossly intact to light touch in bilateral lower extremities. Both legs are warm and dry. Bilateral calves are soft, nontender to palpation Objective Labs Result Diagrams: 01/27/21 05:20 PFSH Medical History Anxiety Arthritis BCC (basal cell carcinoma) Carpal tunnel syndrome, bilateral Facet arthropathy, lumbar Insomnia Spinal stenosis Spondylolisthesis TIA (transient ischemic attack) (~2011) Trigger finger Ulnar tunnel syndrome Surgical History H/O cardiac radiofrequency ablation H/O hysterectomy for benign disease History of carpal tunnel surgery of right wrist History of heart surgery (~2011) History of laminectomy (~2003) History of tonsillectomy and adenoidectomy History of total right hip arthroplasty (11/16/15) Hx of appendectomy Hx of bilateral cataract extraction (2015) Hx of laminectomy (~1984) Hx of removal of cyst (1984) Hx of shoulder surgery Family History Father Stroke Social History household members: spouse Smoking Status: Former smoker alcohol intake: current Discharge Assessment & Plan Assessment and Plan Assessment: Progressing as expected status post lumbar fusion Plan of Treatment: Patient is to work on ambulation with the assistance of a front wheeled walker with physical therapy.? Current pain management regimen is to be continued.? We will continue to monitor the patient's pain level and progress with physical therapy.? Plan for discharge likely home in the next 1-2 days. Limit bending, twisting, lifting Discharge Plan Discharge Plan Patient Disposition: Home Discharge orders & Medications Prescriptions: New acetaminophen 500 mg capsule 500 mg PO Q6HR MDD Max 6 tabs per day PRN (Reason: Pain, Mild (1-3)) Qty: 90 RF: 0 docusate sodium [DOK] 100 mg Capsule 100 mg PO BID PRN (Reason: Constipation from the narcotic pain medications) Qty: 30 RF: 0 oxycodone 5 mg Tablet See Rx Instructions .ROUTE .COMPLEX PRN (Reason: Pain, Severe (7-10)) Qty: 10 RF: 0 tramadol 50 mg Tablet 100 mg PO QID PRN (Reason: Pain, Moderate (4-6)) Qty: 42 RF: 0 Continued celecoxib [Celebrex] 200 mg capsule 200 mg PO DAILY Qty: 90 RF: 2 zolpidem 5 mg Tablet 2.5 mg PO BEDTIME PRN (Reason: Sleep) RF: 0 Rybelsus 7 mg Tablet 7 mg PO DAILY RF: 0 cyclobenzaprine 10 mg tablet See Rx Instructions .ROUTE .COMPLEX PRN (Reason: Muscle Spasm) RF: 0 propranolol 40 mg Tablet 20 mg PO DAILY PRN (Reason: Palpitations) RF: 0 diphenhydramine HCl [Benadryl] 25 mg Capsule 50 mg PO BEDTIME PRN (Reason: Sinus congestion) RF: 0 levothyroxine [Synthroid] 50 mcg tablet 50 mcg PO DAILY RF: 0 ascorbic acid (vitamin C) 500 mg capsule 1,000 mg PO DAILY RF: 0 cholecalciferol (vitamin D3) 3,000 unit tablet 50 mcg PO DAILY RF: 0 magnesium 250 mg tablet 250 mg PO DAILY RF: 0 glimepiride 1 mg tablet 4 mg PO QAM RF: 0 trazodone 100 mg tablet 100 mg PO BEDTIME PRN (Reason: insomnia) Qty: 90 RF: 2 Follow up/Referrals: Paolo Thompson MD [Physician] - (10-14 days for postoperative visit) Marietta Savage MD [Primary Care Provider] - Diet/Activity/Treatments Diet: Diet as Tolerated and Regular Activity: Limit bending, lifting, twisting. Weightbearing as tolerated with front wheeled walker or cane Cold/Heat Therapy: Use ice as needed for pain Other treatments: Use Tylenol plus tramadol for [id number] pain, okay for Oxy for moderate to severe pain. Do not take sleeping medications within 4 hours of these narcotic pain medications Skin/Wound/Dressing Care Report to your healthcare provider any signs of infection, such as:: chills, fever, night sweats, unusual drainage and unusual redness Dressing: Okay to shower after 48 hours. Please call the clinic if dressing becomes wet, saturated or soiled. Avoid soaking and any ointments near the incision. Visit Report/Discharge Packet Instructions: DI for Prescription Opioid Use, DI for Transforaminal Lumbar Interbody Fusion Stand Alone Forms: Surgery Discharge Discharge Data Primary Care Provider: Marietta Savage
--- NOTE | 2021-01-28 09:47 | PT.IPTN ---
Surgery Performed Operation Date: 01/26/21 08:45 Actual Procedures p L3-4, L4-5, L5-S1 TLIF w/posterior instrumentation - Paolo Thompson MD Physical Therapy Treatment Note M2 PT-IP Current Condition Start: 01/27/21 13:20 Freq: NEEDED Status: Active Protocol: Document 01/27/21 10:15 AB (Rec: 01/27/21 13:37 AB [id number]) Physical Therapy Current Condition Current Condition Evaluation Date 01/27/21 Treatment Diagnosis s/p L3-4, L4-5, L5S1 fusion/ lami; difficulty in walking Onset Date 01/26/21 Precautions Lumbar Precautions Log Roll,No Twisting,Limit Bending,Lifting Restriction of 10 lbs,Gait Belt above Incisional Area M3 PT-IP Subjective Start: 01/27/21 13:20 Freq: NEEDED Status: Active Protocol: Document 01/28/21 09:20 CLB (Rec: 01/28/21 10:00 CLB [id number]) Subjective Physical Therapy Visit Type Type Treatment Note Visit Start Time 09:20 Visit Stop Time 09:47 Total Visit Minutes 27 Number of SCHOOL PSYCHOLOGY PROFESSOR Visits 1 Physical Therapy Visit Comments Patient Comments Pt agrees to work with PT Therapy Pain Assessment Pain When Pain Assessed During Mobility Pain Present Pain Present Pain Reported Location Lower Back Intensity 6 Scale Used Numeric (0 - 10) Pain Management Techniques Distraction,Modification of Treatment,Re-positioning, Timing of Activity with Medications M4 PT-IP Mobility and Gait Start: 01/27/21 13:20 Freq: NEEDED Status: Active Protocol: Document 01/28/21 09:20 CLB (Rec: 01/28/21 10:00 CLB [id number]) PT-Bed Mobility Assessment Rolling Type of Rolling Log Rolling,Roll to Left Level of Assist Standby Assistance Scooting Scooting to Edge of Bed Standby Assistance PT-Transfer Assessment Sit to and From Stand Sit to and from Stand Minimal Assistance,1 Person Assistance,Use of Upper Extremities Equipment Transfer Assistive Device Gait Belt,Front Wheeled Walker Orthotic/Prosthetic Devices or Brace: No Transfers Transfer Destination Chair Transfer Technique Stand Step Pivot Transfer Ability Level of Assist Standby Assistance,Contact Guard Assistance,1 Person Assistance,Use of Upper Extremities Comments Mobility Comments Pt required SBA for LR and sidelying to sit with cues to prevent twisting during LR. Pt required Min A to stand. Pt ambulated in [place] to therapy stairs CGA-SBA. Pt cllimbed three steps with LASTING MACHINE OPERATOR BED and rail. Pt climbed one platform step with FWW CGA as pt's steps are 21 inches deep and can accommodate a FWW. Pt then ambulated back to room sitting in chair with cues to use UE' s to slow descent. Gait Assessment Gait Gait Assistance Required: Standby Assistance,Contact Guard Assist,1 Person Assist Distance (Feet) 150 Able to Maintain Weight Bearing Status Yes During Gait Assistive Devices Assistive Device Gait Belt,Front Wheeled Walker Orthotic/Prosthetic Devices or Brace: No Gait Deviations General Gait Pattern Antalgic,Decreased Stride Length,Decreased Feet Clearance Factors Limiting Gait Function Factors Limiting Gait Function Decreased Activity Tolerance, Decreased Strength,Difficulty Following Directions,Limited Range of Motion,Pain,Poor Balance,Poor Safety Awareness Comments Gait Comments Pt ambulated ~150ft with cues for proper walker positioning with good follow through. Pt used step thru gait pattern. Pt required CGA then SBA for gait. Pt required cues for chair approach and to back up until she felt both legs on chair before sitting for safety. Stair Climbing Assessment Evaluation Level of Assist On Stairs Contact Guard Assistance,1 Person Assistance Devices Stair Climbing Assistive Devices Front Wheel Walker,Left Railing Technique/Endurance Stair Climbing Direction Ascend and Descend Stair Climbing Technique Step to Step Number of Steps Climbed 4 Stair Climbing Set # Repetitions (reps) 1 Comments Stair Climbing Comments see mobility section M5 PT-IP Objective Assessments Start: 01/27/21 13:20 Freq: NEEDED Status: Active Protocol: Document 01/27/21 10:15 AB (Rec: 01/27/21 13:37 AB [id number]) Orientation Orientation/Cognition Level of Alertness Confusional State Orientation Name Safety Awareness Decreased Safety Awareness Memory Description Short Term Impaired Gross Range of Motion Lower Extremity ROM Assessment Within Functional Limits Strength Lower Extremity Strength Assessment Bilaterally Impaired Hip 3+/5 Knee 3+/5 Sensation Assessment Sensation Gross Sensation WNL Muscle Tone Muscle Tone WNL Yes M6 PT-IP Treatment Start: 01/27/21 13:20 Freq: NEEDED Status: Active Protocol: Document 01/27/21 13:32 AW (Rec: 01/27/21 13:44 AW [id number]) Physical Therapy Treatment Education Education Provided Precautions,Safety Other Treatments Other Treatment Performed Educated pt and her spouse on current level of assist required for mobility as related to discharge planning. M7 PT-IP Assessment and Plan Start: 01/27/21 13:20 Freq: NEEDED Status: Active Protocol: Document 01/28/21 09:20 CLB (Rec: 01/28/21 10:00 CLB [id number]) PT Summary Assessment and Plan Summary Impairments Pain,ROM,Strength,Balance, Coordination,Sensation,Tone, Cognition,Bed Mobility, Transfers,Gait,Activity Tolerance Progress Towards Goals Progressing Toward Goals Assessment Summary Pt improving with all mobility requiring SBA for LR but requires cues not to twist during LR. Pt able to get to sitting postion from sidelying SBA then to EOB SBA. Pt required Min A for standing from bed. Pt able to climb stairs CGA. Pt ambulated requiring CGA to start then SBA at end of ambulation. Pt scheduled for CG training at 1300. Goals Bed Mobility Goal Standby Assistance Transfer Goal Independent,Front Wheeled Walker Gait Goal Standby Assistance,Front Wheel Walker Gait Distance 150 Other Goals up/down 10 steps L rail ascending SBA Days to Meet Goals 10 Frequency of Treatment Frequency Of Treatment Twice a Day Treatment Plan Physical Therapy Treatment Plan Bed Mobility Training,Transfer Training,Gait Training, Therapeutic Exercise,Balance Retraining,Post Op Education, Discharge Planning,Hot or Cold Pack,Neuromuscular Re-ed, Coordination Retraining,Manual Therapy Other Recommendations and Next Treatment CG training with 1300. Focus Precautions Lumbar Precautions Log Roll,No Twisting,Limit Bending,Lifting Restriction of 10 lbs,Gait Belt above Incisional Area Recommendations To Nursing Amount of Assist Needed 1 Person Assist Discharge Recommendations PT Discharge Recommendations Home with 24/ Assist Available Equipment Needed for Home Before FWW Discharge Transportation Needs at Discharge Private Vehicle
[2021-01-28 11:30] VITALS: BP 130/66; PULSE 109; RESP 16; TEMP 36.4; O2SAT 100
--- NOTE | 2021-01-28 12:32 | OT.IP.EVAL ---
Surgery Performed Operation Date: 01/26/21 08:45 Actual Procedures p L3-4, L4-5, L5-S1 TLIF w/posterior instrumentation - Paolo Thompson MD Past Medical History (Last Reviewed 01/28/21 @ 09:29 by Shannon Zavaleta PA-C) Anxiety Arthritis BCC (basal cell carcinoma) Carpal tunnel syndrome, bilateral Facet arthropathy, lumbar H/O cardiac radiofrequency ablation H/O hysterectomy for benign disease History of carpal tunnel surgery of right wrist History of heart surgery (~2011) History of laminectomy (~2003) History of tonsillectomy and adenoidectomy History of total right hip arthroplasty (11/16/15) Hx of appendectomy Hx of bilateral cataract extraction (2015) Hx of laminectomy (~1984) Hx of removal of cyst (1984) Hx of shoulder surgery Insomnia Spinal stenosis Spondylolisthesis TIA (transient ischemic attack) (~2011) Trigger finger Ulnar tunnel syndrome Surgical History (Last Reviewed 01/28/21 @ 09:29 by Shannon Zavaleta PA-C) H/O cardiac radiofrequency ablation H/O hysterectomy for benign disease History of carpal tunnel surgery of right wrist History of heart surgery (~2011) History of laminectomy (~2003) History of tonsillectomy and adenoidectomy History of total right hip arthroplasty (11/16/15) Hx of appendectomy Hx of bilateral cataract extraction (2015) Hx of laminectomy (~1984) Hx of removal of cyst (1984) Hx of shoulder surgery Occupational Therapy Inpatient Evaluation/Re-Eval M1 PT/OT-IP Prior Functional Status Start: 01/27/21 13:20 Freq: NEEDED Status: Active Protocol: Document 01/28/21 12:34 [facility] (Rec: 01/28/21 13:05 [facility] [id number]) Medical Review Prior Functional Status Medical History Reviewed Yes Communication able to make needs known but with confusion Mobility and Gait pt stated that she is independent with all mobilities and ambulation without AD Social History Household Members spouse Living Arrangements House Number of Floors (Floors) 3 or More Floors Number of Stairs To Enter/Railing? 10 steps with R rail descending to enter the house; pt stays on first level of the house Home Environment Standard Height Toilet,Walk in Shower,Built-In Shower Seat Home Equipment Straight Cane Additional Social History Comment has an adjustable bed Pt's states daughter in law will not help as just had surgery and that he will assist her, but has lifting restrictions from a recent back surgery himself. spouse stated that he has picked up a FWW, and RTS with handles. M2 OT-IP Current Condition Start: 01/28/21 12:08 Freq: Status: Active Protocol: Document 01/28/21 12:34 [facility] (Rec: 01/28/21 13:05 [facility] [id number]) Occupational Therapy Current Condition Current Condition Evaluation Date 01/28/21 Treatment Diagnosis s/p L3-S1 TLIF with posterior instr, decreased mobilty Diagnosis Onset Date 01/26/21 Post Operative Precautions Lumbar Precautions Log Roll,No Twisting,Limit Bending,Lifting Restriction of 10 lbs,Gait Belt above Incisional Area M3 OT- IP Subjective and Pain Start: 01/28/21 12:08 Freq: Status: Active Protocol: Document 01/28/21 12:34 [facility] (Rec: 01/28/21 13:05 [facility] [id number]) OT- Subjective Occupational Therapy Visit Type Type Initial Evaluation Visit Start Time 10:20 Visit Stop Time 12:32 Total Visit Minutes 69 Notes Pt seen twice from [id number] and [id number]. Occupational Therapy Visit Comments Patient Comments Pt agreed to do OT eval. Able to talk to pt's for second part of the session. Patient/Caregiver Goals TO go home. OT Pain Assessment Pain When Pain Assessed During Mobility Pain Present Pain Present Pain Reported M4 OT- IP ADL's Start: 01/28/21 12:08 Freq: Status: Active Protocol: Document 01/28/21 12:34 [facility] (Rec: 01/28/21 13:05 [facility] [id number]) OT HRP-Hmvl-Pqwlsec General Evaluation Self-Feeding Ability Independent OT ADL-Grooming General Evaluation Grooming Ability Independent Comments OT Grooming Comments Pt did while seated in the recliner. OT ADL-Dressing General Eval Lower Body Dressing Ability Minimal Assistance Areas Needing Assistance Pants/Shorts Comments OT Dressing Comments Pt able to practice use of furnace repairer for LB dressing. Pt needs cues to put in her RLE first as it is weaker. OT ADL-Toileting General Evaluation Toileting Ability Standby Assistance Comments OT Toileting Comments Pt able to wipe appropriately to do all her hygiene needs. OT ADL-Bathing Bathing Type Bathing Type Shower General Evaluation Bathing Ability Minimal Assistance Areas Needing Assistance Wash/Dry Back Comments OT Bathing Comments Pt will benefit from a shower chair for home use. Pt needing MODA to stand even with use of grab bars. Pt needing assist for her back. M5 OT- IP IADL's Start: 01/28/21 12:08 Freq: Status: Active Protocol: Document 01/28/21 12:34 [facility] (Rec: 01/28/21 13:05 [facility] [id number]) OT-Instrumental Activities of Daily Living Home Safety Awareness Awareness of Need for Assistance at Home Good Awareness Medication Management Medication Management Comments Pt is a bit groggy and at this time would be best to have her assist with her needs. Money Management Money Management Comments Pt is a bit groggy and at this time would be best to have her assist with her needs. Meal Preparation Meal Preparation Comments Pt is a bit groggy and at this time would be best to have her assist with her needs. Environmental Epidemiologist Environmental Epidemiologist Comments Pt is a bit groggy and at this time would be best to have her assist with her needs. M6 OT- IP Functional Cognition Start: 01/28/21 12:08 Freq: Status: Active Protocol: Document 01/28/21 12:34 [facility] (Rec: 01/28/21 13:05 [facility] [id number]) Cognitive Factors Limiting Selfcare Function Cognitive Ability Level of Alertness Alert Patient Orientation Name,Age,Birthday,Month,Date, Year,Day of Week,Place, Situation Attention Span Ability Capable of Focused Attention, Capable of Sustained Attention Ability to Follow Commands Able to Follow One Step Commands Safety Awareness Decreased Ability to Apply Precautions,Underestimates Need for Assistance Cognitive Comments Cognitive Assessment Comments Pt needing cues to incorporate her back precautions at this time. Pt tends to twist while she is trying to stand up. M7 OT- IP Mobility and Balance Start: 01/28/21 12:08 Freq: Status: Active Protocol: Document 01/28/21 12:34 [facility] (Rec: 01/28/21 13:05 [facility] [id number]) OT-Transfer Assessment Sit to and From Stand Sit to and from Stand Minimal Assistance,Moderate Assistance,1 Person Assistance Transfers Transfer Ability Minimal Assistance,1 Person Assistance Technique Transfer Destination Chair,Shower Stall,Toilet Transfer Technique Stand Step Pivot Devices Transfer Assistive Devices Gait Belt,Front Wheeled Walker Comments Mobility Comments Pt at times needing MODA to stand to FWW as pt's legs at very long and has difficulty to push with her arms on the recliner to come to stand. Pt does better when putting one hand on the FWW and other to push on the armrest of the recliner but still needing assist to hold the FWW and assist to stand. Per pt's just had back surgery and has a 20lb lifting restriction. Questionable whether his is able to provide enough assist for the pt. OT- Balance Assessment Sitting Balance and Reactions Static Sitting Balance Ability Good Dynamic Sitting Balance Ability Good Standing Balance and Reactions Static Standing Balance Ability Fair M8 OT- IP Objective Assessments Start: 01/28/21 12:08 Freq: Status: Active Protocol: Document 01/28/21 12:34 [facility] (Rec: 01/28/21 13:05 [facility] [id number]) OT-Muscle Tone Assessment Muscle Tone WNL Yes M9 OT- IP Assessment and Plan Start: 01/28/21 12:08 Freq: Status: Active Protocol: Document 01/28/21 12:34 [facility] (Rec: 01/28/21 13:05 [facility] [id number]) OT Summary Assessment and Plan Potential Rehabilitation Potential Good Analytic Complexity at Evaluation Low Summary OT Impairments Pain,Strength,Balance, Functional Cognition, Functional Mobility,Dressing, Toileting,Bathing,Toilet Transfers,Shower Transfers Progress Towards Goals Progressing Toward Goals Assessment Summary Pt low complexity and main barriers are steps, pt's has 20lb lifting restriction from just having back surgery, pt having difficulty to come to stand. Pt to do caregiver training with PT this afternoon. Pt's states can have his son stay with them to assist as needed. Pending caregiver training, pt to go home or possibly short SNF stay. Pt's states to get a shower chair for her. Goals Dressing Goal Independent Toileting Goal Independent Bathing Goal Independent Toilet Transfer Goal Independent Shower Transfer Goal Independent Patient/Caregiver Education Goal Demonstrate Post-Op Precautions,Caregiver Independent Assisting Patient Days to Meet Goals 7 Frequency of Treatment Frequency Of Treatment Once a Day Treatment Plan OT Treatment Plan ADL Training,Functional Cognition Training,Functional Mobility,Patient/Family Education,Discharge Planning Discharge Recommendations OT Discharge Recommendations Home with Assistance,Home Health,SNF Rehab,Home vs SNF Other Discharge Recommendations Pending caregiver training and if son able to come and stay with pt and home with assist versus short skilled rehab. Home Equipment Needs shower chair Transportation Needs at Discharge Private Vehicle
[2021-01-28] MEDS: CYCLOBENZAPRINE 10 MG TABLET PO (12:39)
--- NOTE | 2021-01-28 13:44 | PT.IPTN ---
Surgery Performed Operation Date: 01/26/21 08:45 Actual Procedures p L3-4, L4-5, L5-S1 TLIF w/posterior instrumentation - Paolo Thompson MD Physical Therapy Treatment Note M2 PT-IP Current Condition Start: 01/27/21 13:20 Freq: NEEDED Status: Active Protocol: Document 01/27/21 10:15 AB (Rec: 01/27/21 13:37 AB [id number]) Physical Therapy Current Condition Current Condition Evaluation Date 01/27/21 Treatment Diagnosis s/p L3-4, L4-5, L5S1 fusion/ lami; difficulty in walking Onset Date 01/26/21 Precautions Lumbar Precautions Log Roll,No Twisting,Limit Bending,Lifting Restriction of 10 lbs,Gait Belt above Incisional Area M3 PT-IP Subjective Start: 01/27/21 13:20 Freq: NEEDED Status: Active Protocol: Document 01/28/21 13:16 CLB (Rec: 01/28/21 15:54 CLB [id number]) Subjective Physical Therapy Visit Type Type Treatment Note Visit Start Time 13:16 Visit Stop Time 13:44 Total Visit Minutes 28 Notes present for CG training. Number of INVESTMENT COUNSELOR Visits 2 Physical Therapy Visit Comments Patient Comments Pt agrees to work with PT Therapy Pain Assessment Pain When Pain Assessed During Mobility Pain Present Pain Present Pain Reported Location Lower Back Intensity 5 Scale Used Numeric (0 - 10) Pain Management Techniques Distraction,Modification of Treatment,Re-positioning, Timing of Activity with Medications M4 PT-IP Mobility and Gait Start: 01/27/21 13:20 Freq: NEEDED Status: Active Protocol: Document 01/28/21 13:16 CLB (Rec: 01/28/21 15:54 CLB [id number]) PT-Bed Mobility Assessment Rolling Type of Rolling Log Rolling,Roll to Left Level of Assist Standby Assistance Supine to Sit Supine to Sit Contact Guard Assistance,1 Person Assistance Sit to Supine Sit to Supine Minimal Assistance,1 Person Assistance Scooting Scooting to Edge of Bed Standby Assistance PT-Transfer Assessment Sit to and From Stand Sit to and from Stand Standby Assistance,1 Person Assistance,Use of Upper Extremities Equipment Transfer Assistive Device Gait Belt,Front Wheeled Walker Orthotic/Prosthetic Devices or Brace: No Transfers Transfer Destination Bed,Chair Transfer Technique Stand Step Pivot Transfer Ability Level of Assist Standby Assistance,1 Person Assistance,Use of Upper Extremities Comments Mobility Comments Pt stood from chair with in front of pt supporting walker, with this pt was able to keep hands on walker and stand SBA. Pt ambulated to therapy stairs w/ FWW/SBA and climbed three steps with one rail with providing MEAL TEMPERER. Pt using step to step. Pt able to climb three sets of stairs as pt has then steps from driveway to house. Pt ambulated back to room sitting on EOB with cues to hinge at hips and reaching back for bed for slow descent. Pt able to get to sidelying with assisting legs part way onto bed. Pt then able to roll to back and position herself in bed. Pt then performed LR to left with cues for sequencing knees up first and to prevent twisting. Pt assisted with CGA to full seated position from sidelying. Pt provided walker stability from the front of the walker and pt was able to stand SBA. Pt transferred to chair SBA and sat with proper hand placement and controlled descent. Pt able to assist pt with all needs. Informed RN of pt progress. Gait Assessment Gait Gait Assistance Required: Standby Assistance,1 Person Assist Distance (Feet) 150 Able to Maintain Weight Bearing Status Yes During Gait Assistive Devices Assistive Device Gait Belt,Front Wheeled Walker Orthotic/Prosthetic Devices or Brace: No Gait Deviations General Gait Pattern Antalgic,Decreased Stride Length,Decreased Feet Clearance Factors Limiting Gait Function Factors Limiting Gait Function Decreased Activity Tolerance, Decreased Strength,Difficulty Following Directions,Limited Range of Motion,Pain,Poor Balance,Poor Safety Awareness Comments Gait Comments See mobility comments for details. Stair Climbing Assessment Evaluation Level of Assist On Stairs Contact Guard Assistance,1 Person Assistance Devices Stair Climbing Assistive Devices Left Railing Technique/Endurance Stair Climbing Direction Ascend and Descend Stair Climbing Technique Step to Step Number of Steps Climbed 3 Stair Climbing Set # Repetitions (reps) 3 Comments Stair Climbing Comments see mobility section M5 PT-IP Objective Assessments Start: 01/27/21 13:20 Freq: NEEDED Status: Active Protocol: Document 01/27/21 10:15 AB (Rec: 01/27/21 13:37 AB [id number]) Orientation Orientation/Cognition Level of Alertness Confusional State Orientation Name Safety Awareness Decreased Safety Awareness Memory Description Short Term Impaired Gross Range of Motion Lower Extremity ROM Assessment Within Functional Limits Strength Lower Extremity Strength Assessment Bilaterally Impaired Hip 3+/5 Knee 3+/5 Sensation Assessment Sensation Gross Sensation WNL Muscle Tone Muscle Tone WNL Yes M6 PT-IP Treatment Start: 01/27/21 13:20 Freq: NEEDED Status: Active Protocol: Document 01/27/21 13:32 AW (Rec: 01/27/21 13:44 AW [id number]) Physical Therapy Treatment Education Education Provided Precautions,Safety Other Treatments Other Treatment Performed Educated pt and her spouse on current level of assist required for mobility as related to discharge planning. M7 PT-IP Assessment and Plan Start: 01/27/21 13:20 Freq: NEEDED Status: Active Protocol: Document 01/28/21 13:16 CLB (Rec: 01/28/21 15:54 CLB [id number]) PT Summary Assessment and Plan Summary Impairments Pain,ROM,Strength,Balance, Coordination,Sensation,Tone, Cognition,Bed Mobility, Transfers,Gait,Activity Tolerance Progress Towards Goals Progressing Toward Goals Assessment Summary Pt improving with sit-stand with in front of walker for stability. Pt able to climb three sets of steps with left rail and MEAL TEMPERER. Pt able to assist pt in and OOB CGA-Min A. Pt plans to have son come stay upon d/c for additional assistance. Goals Bed Mobility Goal Standby Assistance Transfer Goal Independent,Front Wheeled Walker Gait Goal Standby Assistance,Front Wheel Walker Gait Distance 150 Other Goals up/down 10 steps L rail ascending SBA Days to Meet Goals 10 Frequency of Treatment Frequency Of Treatment Twice a Day Treatment Plan Physical Therapy Treatment Plan Bed Mobility Training,Transfer Training,Gait Training, Therapeutic Exercise,Balance Retraining,Post Op Education, Discharge Planning,Hot or Cold Pack,Neuromuscular Re-ed, Coordination Retraining,Manual Therapy Precautions Lumbar Precautions Log Roll,No Twisting,Limit Bending,Lifting Restriction of 10 lbs,Gait Belt above Incisional Area Recommendations To Nursing Amount of Assist Needed 1 Person Assist Discharge Recommendations PT Discharge Recommendations Home with 18/12 Assist Available Equipment Needed for Home Before FWW Discharge Transportation Needs at Discharge Private Vehicle
--- NOTE | 2021-01-28 16:20 | PC.NURSE ---
Pt feels ready to d/c home. Spouse here for animal caregiver training. Dressing change to cover site on back and rajni are intact, has some bruises. No drainage, wound edges approx. Seen by MD and d/c instructions given. Seen by PT and cleared. Reviewed d/c packet. Rx given. Questions answered. Pt d/c home via auto w/spouse.
--- NOTE | 2021-01-28 17:05 | CM.DPNOTE ---
DC Note Patient has been cleared by PT/OT for return home w/spouse to assist. No needs identified from this VETERINARY LABORATORY TECHNICIAN today. Patient eager to return home. Cleared by therapies and medical team JW
== END 2021-01-28 14:10 | disposition home or self-care (01) | DRG 455 ==
PROVIDERS: Admitting Provider Orthopaedic Surgery Orthopaedic Surgery of the Spine; PCP Internal Medicine; Referring Provider Orthopaedic Surgery Orthopaedic Surgery of the Spine; Visit Provider Orthopaedic Surgery Orthopaedic Surgery of the Spine
PROC: 0SG10AJ Fusion of 2 or more Lumbar Vertebral Joints with Interbody Fusion Device, Posterior Approach, Anterior Column, Open Approach (ICD-10-PCS; principal; 2021-01-26 08:45)
DX: M41.56 Other secondary scoliosis, lumbar region (principal); M43.16 Spondylolisthesis, lumbar region; M48.062 Spinal stenosis, lumbar region with neurogenic claudication; M48.07 Spinal stenosis, lumbosacral region; M54.16 Radiculopathy, lumbar region; M54.17 Radiculopathy, lumbosacral region; E11.9 Type 2 diabetes mellitus without complications; I10 Essential (primary) hypertension; M96.1 Postlaminectomy syndrome, not elsewhere classified; E03.9 Hypothyroidism, unspecified; Z87.891 Personal history of nicotine dependence; Z79.84 Long term (current) use of oral hypoglycemic drugs; Z20.822 Contact with and (suspected) exposure to COVID-19
CPT/HCPCS: 36415; 72100; 76000; 82962; 85014; 85018; 87635; 97116; 97162; 97165; 97530; 97535; C1776; C9803; C9290; J0171; J0690; J1100; J1170; J2250; J2405; J2704; J2765; J3010

== ENCOUNTER → 2021-03-04 13:42 | Outpatient (CLI) | payer MEDICARE, SELFPAY ==
[2021-01-26 16:00] VITALS: BMI 19.7
--- NOTE | 2021-03-04 | DI.CT.S_ITS ---
PROCEDURE: CT LUMBAR SPINE WO CON INDICATIONS: Spondylolisthesis, lumbar region TECHNIQUE: Noncontrast 3 mm thick sections acquired from the T12 level to the sacrum. Sagittal and coronal reformats were constructed. For radiation dose reduction, the following was used: automated exposure control. COMPARISON: Located Within [facility], CT, CT LUMBAR SPINE WO CON, 12/27/2020, 12:22. Located Within [facility], CR, XR LUMBAR SPINE 2-3V, 01/26/2021, 14:06. Located Within [facility], MR, MR LUMBAR SPINE WO CON, 04/24/2020, 12:42. FINDINGS: Postsurgical changes of L3-S1 posterior fixation by means of bilateral rods and pedicle screws with interbody devices along with left hemilaminectomy changes at L3-L4 and L4-L5. Alignment at the operative levels is normal. Hardware is normal in appearance with no evidence of acute complicating hardware feature or loosening. Alignment at the remaining levels is normal. Vertebral body heights maintained. No evidence of fracture. Degenerative changes as described below. No acute or suspicious osseous lesion. Regional unenhanced soft tissues demonstrate no acute abnormality. T12-L1: No spinal canal or neural foraminal stenosis. L1-L2: No spinal canal or neural foraminal stenosis. L2-L3: Probable mild spinal canal stenosis due to a combination of diffuse disc bulge and a superimposed broad-based posterior disc protrusion. Bulky facet hypertrophy and some buckling of the ligamentum flavum further contribute to mild spinal canal stenosis. Mild bilateral neural foraminal narrowing due to foraminal components of the disc bulge. L3-L4: No spinal canal stenosis. Mild bilateral neural foraminal narrowing. L4-L5: No spinal canal stenosis. Mild bilateral neural foraminal narrowing. L5-S1: No spinal canal stenosis. Moderate to severe bilateral neural foraminal stenosis. IMPRESSION: Postsurgical changes of L3-S1 posterior fixation with no acute complicating hardware feature. Multilevel multifactorial degenerative changes worst at L2-L3 and L5-S1. Dictated by: Chito Hernandez M.D. on 03/04/2021 at 16:04 Approved by: Chito Heranndez M.D. on 03/04/2021 at 16:13
== END ==
PROVIDERS: PCP Internal Medicine; Referring Provider Orthopaedic Surgery Orthopaedic Surgery of the Spine; Visit Provider Orthopaedic Surgery Orthopaedic Surgery of the Spine
DX: M43.16 Spondylolisthesis, lumbar region (principal); M47.816 Spondylosis without myelopathy or radiculopathy, lumbar region; M47.817 Spondylosis without myelopathy or radiculopathy, lumbosacral region; Z98.1 Arthrodesis status
CPT/HCPCS: 72131

== ENCOUNTER → 2022-03-14 10:20 | Outpatient (CLI) | payer MEDICARE, SELFPAY ==
[2021-01-26 16:00] VITALS: BMI 19.7
--- NOTE | 2022-03-14 10:24 | DI.RAD.S_ITS ---
PROCEDURE: XR LUMBAR SPINE MIN 4V INDICATIONS: s/p L3-S1 fusion TECHNIQUE: 5 views of the lumbar spine were acquired, including bilateral oblique views. COMPARISON: [facility], CR, XR LUMBAR SPINE 2 OR 3 VIEWS, 02/17/2021, 15:11. [facility], CR, XR LUMBAR SPINE 2-3V, 01/26/2021, 14:06. [facility], CR, XR LUMBAR SPINE 2 OR 3 VIEWS, 08/02/2021, 13:23. [facility], CR, XR LUMBAR SPINE 2 OR 3 VIEWS, 11/10/2021, 14:37. [facility], CR, XR LUMBAR SPINE 2 OR 3 VIEWS, 01/24/2022, 15:59. [facility], CT, CT LUMBAR SPINE WO CON, 03/04/2021, 14:07. [facility], CR, XR LUMBAR SPINE MIN 4V, 10/11/2020, 12:57. FINDINGS: Bones: 5 nonrib-bearing vertebrae are present. There is moderate scoliosis; otherwise normal alignment. No vertebral body compression fractures. No suspicious bony lesions. There are postsurgical changes with discectomy and posterior fusion at L3-S1. There are lucencies around the pedicular screws (left L3, L4, L5 and S1 pedicular screws, and the right L3 and L4 pedicular screws) concerning for hardware loosening. Note is made of right hip arthroplasty. Soft tissues: Overlying bowel gas pattern is normal. Vascular calcifications consistent with atherosclerosis. IMPRESSION: 1. Postsurgical changes with discectomy and posterior fusion at L3-S1. There are lucencies around the pedicular screws bilaterally, concerning for hardware loosening. Dictated by: Josemanuel Ramirez M.D. on 03/14/2022 at 11:55 Approved by: Josemanuel Ramirez M.D. on 03/14/2022 at 12:03
== END ==
PROVIDERS: PCP Internal Medicine; Referring Provider Physical Medicine & Rehabilitation; Visit Provider Physical Medicine & Rehabilitation
DX: M96.1 Postlaminectomy syndrome, not elsewhere classified (principal); Z98.1 Arthrodesis status
CPT/HCPCS: 72110

== ENCOUNTER → 2022-03-18 12:28 | Outpatient (CLI) | payer MEDICARE, SELFPAY ==
[2021-01-26 16:00] VITALS: BMI 19.7
--- NOTE | 2022-03-18 12:31 | DI.CT.S_ITS ---
PROCEDURE: CT LUMBAR SPINE WO CON INDICATIONS: Arthrodesis status TECHNIQUE: Noncontrast 3 mm thick sections acquired from the T12 level to the sacrum. Sagittal and coronal reformats were constructed. For radiation dose reduction, the following was used: automated exposure control. COMPARISON: [facility], CT, CT LUMBAR SPINE WO CON, 03/04/2021, 14:07. FINDINGS: Image quality: Excellent. Bones: There is posterior fusion with intervertebral spacers from L3 through S1. Hardware appears intact without evidence of hardware fracture. There is a mild appearance of benjamin- prosthetic surrounding the screws at L3, L4 and S1 most notably on the left. The appearance at L3 and S1 are notably progressive. There are no visualized osseous acute fractures. Endplate deformities are identified at L1 and L3, unchanged. Disc space narrowing is present at L1 and L2. Mild disc bulge is present at L2-3. Superimposed protrusion is possibly present although significant artifact is present at this level. There is felt to be likely mild spinal stenosis although poorly visualized secondary to artifact as well as mild bilateral foraminal narrowing, stable. There is no visualized spinal stenosis from L3-4 through L5-S1. Mild bilateral foraminal narrowing, left greater than right at L3-4, mild bilateral L4-5, moderate to severe bilateral foraminal narrowing, right greater than left. Overall, foraminal narrowing appears stable. Soft tissues: No retroperitoneal masses or hematomas. Visualized aorta is normal in caliber. IMPRESSION: Multilevel degenerative changes, relatively stable compared to prior exam as above. Multilevel postsurgical changes are present with areas of periprosthetic lucency noted suggestive of loosening appearing more prominent as described above. Dictated by: Tessie Quezada M.D. on 03/20/2022 at 14:31 Approved by: Tessie Quezada M.D. on 03/20/2022 at 15:51
== END ==
PROVIDERS: PCP Internal Medicine; Referring Provider Orthopaedic Surgery Orthopaedic Surgery of the Spine; Visit Provider Orthopaedic Surgery Orthopaedic Surgery of the Spine
DX: Z98.1 Arthrodesis status (principal); M47.816 Spondylosis without myelopathy or radiculopathy, lumbar region
CPT/HCPCS: 72131

== ENCOUNTER → 2022-03-20 10:04 | Outpatient (CLI) | payer MEDICARE, SELFPAY ==
[2021-01-26 16:00] VITALS: BMI 19.7
[2022-03-20 10:58] LABS: Hemoglobin A1C% w Est Avg Glu 5.9 % (4.0-6.0)
[2022-03-20 11:13] LABS: Alanine Aminotransferase 25 IU/L (<35); Albumin 4.2 g/dL (3.5-5.0); Albumin Globulin Ratio 1.6 (1.0-2.8); Alkaline Phosphatase 68 U/L (38-126); Aspartate Aminotransferase 26 IU/L (14-36); BUN Creatinine Ratio 19.4 (6-22); Bilirubin Total 0.5 mg/dL (0.2-1.3); Blood Urea Nitrogen 12 mg/dL (7-17); Calcium 10.1 mg/dL (8.4-10.2); Carbon Dioxide 27 mmol/L (22-32); Chloride 100 mmol/L (98-107); Cholesterol 220 mg/dL (140-199); Estimated Glomerular Filt Rate > 60 mL/min (>60); Globulin 2.6 g/dL (1.7-4.1); Glucose 123 mg/dL (80-110); HDL Cholesterol 75 mg/dL (40-60); HEMOLYSIS < 15 (0-50); LDL Cholesterol Calculated 124 mg/dL (<100); Potassium 4.3 mmol/L (3.4-5.1); Sodium 134 mmol/L (137-145); Total Protein 6.8 g/dL (6.3-8.2); Triglycerides 105 mg/dL (35-150)
[2022-03-20 16:25] LABS: Creatinine Urine Random 38.5 mg/dL; Protein (Total) Urine Random 9 mg/dL (0-12); Protein Creatinine Ratio Urine 0.23 GRAM/24H
[2022-03-20 16:55] LABS: Microalbumin Urine Random < 0.6 mg/dL (0-1.6)
== END ==
PROVIDERS: PCP Internal Medicine; Referring Provider Internal Medicine Endocrinology, Diabetes & Metabolism; Visit Provider Internal Medicine Endocrinology, Diabetes & Metabolism
DX: E11.9 Type 2 diabetes mellitus without complications (principal)
CPT/HCPCS: 36415; 80053; 80061; 82043; 82570; 83036; 84156

== ENCOUNTER → 2022-03-20 10:37 | Outpatient (CLI) | payer MEDICARE, SELFPAY ==
[2021-01-26 16:00] VITALS: BMI 19.7
--- NOTE | 2022-03-20 | DI.MG.S_ITS ---
BILATERAL DIGITAL SCREENING MAMMOGRAM 3D/2D WITH CAD: 03/20/2022 CLINICAL: Routine screening. Comparison is made to exams dated: 09/28/2020 mammogram, 05/04/2018 mammogram, 05/02/2016 mammogram, and 05/25/2016 mammogram - [facility]. Both breasts are heterogeneously dense, which may obscure small masses (category c / 51-75% glandular tissue). Current study was also evaluated with a Computer Aided Detection (CAD) system. There are benign vascular calcifications in both breasts. No significant masses, calcifications, or other findings are seen in either breast. There has been no significant interval change. IMPRESSION: BENIGN There is no mammographic evidence of malignancy. A 1 year screening mammogram is recommended. Based on the Tyrer Cuzick model (a risk assessment model) the patient's lifetime risk is 2.3% and her 10 year risk is 0.0%. According to the ACR, ACS, and NCCN guidelines, an annual breast MRI exam along with mammogram is recommended if the patient's lifetime risk is 20% or greater. This exam was interpreted at Station ID: [id number]. NOTE: For mammograms, a report in lay terms will be sent to the patient. Approximately 15% of breast malignancies will not be visualized mammographically. In the management of a palpable breast mass, a negative mammogram must not discourage biopsy of a clinically suspicious lesion. Electronically Signed By: Prashant madera/venita:03/20/2022 13:29:17 letter sent: Normal Exam ACR BI-RADS Category 2: Benign Finding(s) [id number]
== END ==
PROVIDERS: PCP Internal Medicine; Referring Provider Internal Medicine; Visit Provider Internal Medicine
DX: Z12.31 Encounter for screening mammogram for malignant neoplasm of breast; M81.0 Age-related osteoporosis without current pathological fracture; Z13.820 Encounter for screening for osteoporosis; Z78.0 Asymptomatic menopausal state; Z87.311 Personal history of (healed) other pathological fracture; Z90.710 Acquired absence of both cervix and uterus
CPT/HCPCS: 77063; 77067; 77081; 77086

== ENCOUNTER 2022-04-18 10:52 | Outpatient (CLI) | payer MEDICARE, SELFPAY ==
[2021-01-26 16:00] VITALS: BMI 19.7
[2022-04-18] VITALS (9 sets, daily range): BP systolic 135–202; BP diastolic 65–94; PULSE 67–82; RESP 12–18; TEMP 36.9; O2SAT 98–100
--- NOTE | 2022-04-18 10:55 | DI.RAD.S_ITS ---
PROCEDURE: PAIN SI JOINT INJECTION STACIA COMPARISON: Located Within [facility], CT, CT LUMBAR SPINE WO CON, 03/18/2022, 12:37. INDICATIONS: SACROILIAC DISORDER FINDINGS: 6 intraoperative images demonstrate bilateral SI joint injection. IMPRESSION: Fluoroscopy for pain management. Dictated by: Josemanuel Ramirez M.D. on 04/18/2022 at 18:53 Approved by: Josemanuel Ramirez M.D. on 04/18/2022 at 18:54
[2022-04-18] MEDS: MIDAZOLAM 2 MG/2 ML VIAL IV (12:06)
[2022-04-18] MEDS: IOPAMIDOL 15 ML VIAL 3 ML INJ (12:12)
[2022-04-18] MEDS: BETAMETHASONE 30 MG/5 ML MDV 12 MG INJ (12:12)
[2022-04-18] MEDS: LIDOCAINE 1% 20 ML 5 ML INJ (12:13)
[2022-04-18] MEDS: BUPIVACAINE 0.5% MDV 5 ML SUBCUT (12:14)
--- NOTE | 2022-04-18 12:26 | P.PCN_ITS ---
Date/Time/Diagnoses Date of procedure: 04/18/22 Time of procedure: 12:26 Pre-procedure diagnosis: Sacroiliac joint pain/DJD Post-procedure diagnosis: same Procedure Notes Procedure: Fluoroscopic guided contrast controlled bilateral sacroiliac joint injection Indications: Shanice is referred by Dr. Savage for treatment of right sacroiliac joint DJD Physician: Carlo Arriola Total Fluoroscopy time (seconds): 13 Total sedation minutes: 11 Complications: none Procedure in detail & Post-procedure care: Description of procedure Fluoroscopic guided, contrast controlled bilateral sacroiliac joint injection Following review of allergies and review of potential side effects and complications, including, but not necessarily limited to, infection, allergic reaction, local tissue breakdown, temporary as well as permanent nerve injury, paralysis, stroke and possible , the patient indicated that they understood and agreed to proceed. An informed consent was signed by the patient, witnessed by a nurse, and placed in the patient's chart. Additionally, other treatment options including modalities, medications, and physical therapy were reviewed with the patient. After review of previous anaesthesic history and IV conscious sedation the patient was deemed safe to proceed with today?s procedure with IV conscious sedation as ASA class II designation. Safety time-out was performed to confirm patient ID, procedure to be performed and site of procedure. IV sedation was accomplished with a combination of 2mg Versed were administered by the RN after DO order, titrated to patient comfort during the course of the procedure while the patient remained responsive to all verbal commands In the prone position following sterile prep and drape of the pelvic region, the hyper lucency on in the inferior aspect of the sacroiliac joint was identified fluoroscopically the skin was anesthetized be a 25 gauge 1.5 inch needle with approximately 2cc of 1% lidocaine solution. At this point, a 22 gauge 3 in spi nal needle was atraumatically introduced and advanced under fluoroscopic guidance into the inferior aspect of the right sacroiliac joint. Following negative aspiration, approximately 0.3cc of [id number]-300 was injected confirming intra-articular placement without vascular uptake. Radiographic data, including multiple fluoroscopic views of the pelvis, reveals a spinal needle in the sacroiliac joint hyper lucent zone. Subsequent view show flow contrast tear superiorly and inferiorly within the joint capsule without vascular intrathecal uptake. At this point a total of 1cc of 0.5% Marcaine was combined with 1cc of 6mg of betamethasone was injected without incident. Attention was then refocused the left sacroiliac joint where the procedure was replicated. The procedure tolerated the procedure well without signs or symptoms of complications prior to transfer to the recovery area continued monitoring without incident. The patient was then transferred to the recovery area with a bur observed for an appropriate time after the injection. The patient reverted a vas score of 7 prior to the procedure and post-procedure vas of 1. Postop instructions The patient was provided with a pain like to continue to record the patient's response to the target specific procedure prior to the patient's follow-up visit with the referring physician. Additionally, specific post injection care instructions and a contact number to our office were provided if concerns arise regarding the possible complications associated with procedure are suspected.
== END 2022-04-18 12:43 | disposition home or self-care (01) ==
LOC: RAD 10:53
PROVIDERS: PCP Internal Medicine; Referring Provider Physical Medicine & Rehabilitation; Visit Provider Physical Medicine & Rehabilitation
DX: M53.3 Sacrococcygeal disorders, not elsewhere classified (principal); M46.1 Sacroiliitis, not elsewhere classified
CPT/HCPCS: 27096; 99152; J0702; J2250

== ENCOUNTER → 2022-09-06 11:29 | Outpatient (CLI) | payer MEDICARE, SELFPAY ==
[2021-01-26 16:00] VITALS: BMI 19.7
[2022-09-06 13:23] LABS: Alanine Aminotransferase 24 IU/L (<35); Albumin 4.1 g/dL (3.5-5.0); Albumin Globulin Ratio 1.6 (1.0-2.8); Alkaline Phosphatase 61 U/L (38-126); Aspartate Aminotransferase 26 IU/L (14-36); BUN Creatinine Ratio 27.8 (6-22); Bilirubin Total 0.6 mg/dL (0.2-1.3); Blood Urea Nitrogen 15 mg/dL (7-17); Calcium 9.8 mg/dL (8.4-10.2); Carbon Dioxide 29 mmol/L (22-32); Chloride 99 mmol/L (98-107); Cholesterol 229 mg/dL (140-199); Estimated Glomerular Filt Rate > 60 mL/min (>60); Globulin 2.5 g/dL (1.7-4.1); Glucose 111 mg/dL (80-110); HDL Cholesterol 74 mg/dL (40-60); HEMOLYSIS < 15 (0-50); LDL Cholesterol Calculated 130 mg/dL (<100); Potassium 4.4 mmol/L (3.4-5.1); Sodium 134 mmol/L (137-145); Total Protein 6.6 g/dL (6.3-8.2); Triglycerides 123 mg/dL (35-150)
[2022-09-06 13:37] LABS: Free T4, Direct Thyroxine 1.03 ng/dL (0.78-2.19)
[2022-09-06 13:51] LABS: Thyroid Stimulating Hormone 2.86 uIU/mL (0.47-4.68)
[2022-09-06 16:01] LABS: Vitamin D 25 Hydroxy (D3) 45.1 ng/mL (30.0-100.0)
[2022-09-07 11:00] LABS: Labcorp Hemoglobin (Hb) A1c 5.9 % (4.8-5.6)
== END ==
PROVIDERS: PCP Internal Medicine; Referring Provider Internal Medicine Endocrinology, Diabetes & Metabolism; Visit Provider Internal Medicine Endocrinology, Diabetes & Metabolism
DX: E03.9 Hypothyroidism, unspecified (principal); M81.0 Age-related osteoporosis without current pathological fracture; E11.9 Type 2 diabetes mellitus without complications
CPT/HCPCS: 36415; 80053; 80061; 82306; 83036; 84439; 84443

== ENCOUNTER 2022-10-16 08:25 | Inpatient (IN) | payer MEDICARE, SELFPAY ==
[2021-01-26 16:00] VITALS: BMI 19.7
[2022-10-10 09:49] VITALS: BMI 19.1
[2022-10-16] VITALS (14 sets, daily range): BP systolic 117–214; BP diastolic 59–107; PULSE 80–110; RESP 8–18; TEMP 36.5–36.8; O2SAT 93–99; BMI 19.1
--- NOTE | 2022-10-16 09:24 | PM.PREOP ---
Pre-operative Note COVID-19 COVID-19 status: Negative Result date/Date tested (Pos, Neg/Pending): 10/15/22 Criteria for continued procedure: Expected advancement of disease process, Possibility delay results in more complex future surgery or treatment, Increased loss of function, Continuing or worsening of significant or severe pain, Deterioration of the patient's condition or overall health and Delay expected to result in less-positive ultimate med/surg outcome Interval Note History & Physical reviewed/Exam performed by Physician: Yes Changes to H&P: No
[2022-10-16] MEDS: CEFAZOLIN 2 GM/100 ML PREMIX 100 ML IV ×2 (10:15→18:36)
[2022-10-16] MEDS: LACTATED RINGERS 1,000 ML 42 ML IV (10:26)
[2022-10-16] MEDS: BUPIVACAINE LIPOSOME 266 MG/20 ML VIAL INJ (10:37)
[2022-10-16] MEDS: BUPIVACAINE 0.25% (PF) VIAL 30 ML INJ (10:39)
--- NOTE | 2022-10-16 13:16 | P.OP_ITS ---
Operative Date/Time/Diagnoses Date of procedure: 10/16/22 Time of procedure: 10:00 Pre-op diagnosis: 1. Lumbar loosened hardware 2. History of lumbar fusion with pseudoarthrosis 3. L2-3 spinal stenosis with neurogenic claudication Post-op diagnosis: same Procedure & Clinicians Procedure: 1. L2-3 posterolateral and posterior interbody fusion 2. L2-3 posterior interbody cage placement 3. L3-4, L4-5, L5-S1 posterior segmental instrumentation removal 4. L3-4, L4-5, L5-S1 revision laminectomy with exploration of fusion 5. L2-3, L3-4, L4-5, L5-S1 posterior segmental instrumentation with pedicle screw placement 6. L5-S1 posterolatearl fusion 7. [place] of bone marrow from iliac crest through a separate incision 8. Utilization of microsurgical technique and operating microscope Same procedure as scheduled: Yes Indications: Patient has been having chronic back pain and worsening lumbar radiculopathy. Patient has CT scan showing loosening hardware in her lumbar 2 years post lumbar fusion from L3-S1. Patient failed multiple conservative management with worsening pain weakness and numbness in her lower extremity as well as pain in her lower back with mechanical clicking due to the hardware loosening. Patient has been having difficulty performing activity of daily living. After discussing risks benefits of treatment options, patient elected proceed with surgery. Surgeon: Paolo Thompson Archery Equipment Repairer: Brook De León Click Yes if Unassisted: No Anesthesia Type: General Operative Notes Closure Type: primary Specimen(s): none sent Prosthetic devices, grafts, tissues, transplants, or devices: Globus CREO MIS screws, Rise cages Applied: catheter Estimated Blood Loss (mL): 100 Blood products transfused: none Procedure in detail: Patient was seen in the preoperative area. Risks and benefits of the surgery was discussed with the patient. Informed consent was obtained from the patient and placed in the chart. Surgical site was marked. Patient was taken to the operative room. General anesthesia was administered. Prophylactic antibiotic was given to the patient less than 30 min before the incision was made. Patient was placed into a prone position on the Jimmy table. Patient's back was then prepped and draped in the sterile fashion. Time-out was performed at this time. Using patient's previous scar incision was made over the L2-3, L3-4 L4-5 L5-S1 interval on the left side. Fascia was incised in line with skin incision. Patient's previously placed hardware over the L3-4, L4-5, L5-S1 level was identified by dissecting down to the level the hardware using a Bovie and a Naylor. The locking caps which was removed using Nuvasiv screwdriver. The locking tano was then removed from the tulips of the pedicle screws using a Corrina. The pedicle screws were then removed using the screwdriver. The screws were all found to be loose indicating pseudoarthrosis. The Globus and MARS retractors was then placed into the wound and docked onto the L2 lamina using C-arm guidance. Using microsurgical technique and operating microscope a laminectomy facetectomy was performed by removing the L2 lamina and the L2-3 facet. The laminectomy and facetectomy was performed in order to decompress patient's the nerve roots exiting at the L2-3 level as well as the central canal. The disc space at L2-3 level was identified next. And a total diskectomy was performed at L2-3 level. The endplates were decorticated using a rasp and shaver. The total diskectomy and decortication was performed at L2-3 level in order to to accomplish a L2-3 fusion. The local bone from the laminectomy and facetectomy was saved for local bone grafting. After the total diskectomy and decortication was completed, Trifecta bone graft material was combined with local bone that was harvested earlier along with DBM bone graft. At this time, a separate skin is incision was made over the iliac crest. A Jamshidi needle was inserted into the iliac crest through a separate skin incision. 5 cc of bone marrow aspiration was obtained through the separate skin incision using a Jamshidi needle from the iliac crest. The bone marrow aspiration was combined with local bone and the Trifecta bone grafting material. The bone grafting material was placed into the L2-3 interbody space along with a expandable cage. The cage was expanded to its maximum height using the torque limiting screwdriver. At this time a mirror image incision was made on the right side. The fascia was incised in line with the skin incision. Patient's previously placed hardware on the right side was then removed in the same fashion as it was on the left side. The hardware was also found to be loose indicating pseudoarthrosis. The fusion mass on the right side was exposed by performing a right-sided hemilaminectomy at L3-4, L4-5 L5-S1 level. The hemilaminectomy was performed using the Kerrison rongeur to undercut the lamina at L3-4, L4-5 L5-S1 as well removing additional epidural scar tissue for purpose of decompressing the epidural space. The fusion mass was explored and was found have visible motion indicating pseudoarthrosis at L5-S1 level. The fusion at L3-4 L4-5 appears to be solid. Globus MARS retractor was inserted and docked onto the L2-3 L5-S1 posterolateral gutter. Using the power drill, posterior-lateral decortication was performed at L2-3 L5-S1 level until bleeding cortical bone was identified. The remaining bone grafting material was placed into the L2-3 L5-S1 posterior lateral gutter he order to accomplish posterolateral fusion at the L2-3 L5-S1 level. Using the double C-arm technique, pedicle screws were placed into the L2, L3, L4-L5 and S1 pedicles bilaterally. This was done by placing the Jamshidi needle into the pedicles, then placing the guidewires over the Jamshidi needle, and finally placing the cannulated screws over the guidewires bilaterally. After the pedicle screws were placed, 2 titanium rods was locked into the heads of the pedicle screws using locking caps and torque limiting screwdriver. Pedicle screws were increased in diameter by 1 mm at all L3, L4 L5 S1 pedicle screws bilaterally due to the previously lose purchase. The S1 screws were increased by 2 mm in diameter bilaterally. All new pedicle screws has good purchase. Total 10 pedicle screws were placed along with locking caps and 2 locking rods. After all the hardware was placed, and confirmed with AP and lateral C-arm imaging, the wound was then irrigated with sterile normal saline and packed with Ray-Oniel gauze for 3 min to accomplish hemostasis. After the gauze was removed the deep fascia was closed with #1 Vicryl suture. The subcutaneous layer was closed with 2-0 Vicryl. The skin was closed with skin rajni. Patient tolerated the procedure well. There were no complications. Neuro monitoring was performed throughout the procedure which was stable throughout the procedure. Pedicle screws were tested using the neuro monitoring probe which were all tested above 20 milliamps. Complications: none Post-operative Condition: stable Disposition: PACU Plan for aftercare: Admit to inpatient hospital
[2022-10-16] MEDS: HYDROMORPHONE 0.5 MG INJ IV ×3 (15:09→21:29)
[2022-10-16] MEDS: LACTATED RINGERS 1,000 ML 125 ML IV ×2 (15:13→23:11)
[2022-10-16] MEDS: OXYCODONE IR 10 MG TABLET PO (17:00)
[2022-10-16] MEDS: ONDANSETRON 4 MG/2 ML INJ IV (19:41)
[2022-10-16] MEDS: PROPRANOLOL 10 MG TABLET 20 MG PO (22:17)
[2022-10-16] MEDS: ZOLPIDEM 5 MG TABLET 2.5 MG PO (22:48)
[2022-10-16] MEDS: TRAZODONE 50 MG TABLET 100 MG PO (22:48)
[2022-10-16] MEDS: DOCUSATE 100 MG CAPSULE PO (22:50)
[2022-10-16] MEDS: DULOXETINE 30 MG CAPSULE PO (22:50)
[2022-10-16] MEDS: SENNOSIDES 8.6 MG TABLET 17.2 MG PO (22:50)
[2022-10-17] VITALS (7 sets, daily range): BP systolic 129–186; BP diastolic 49–75; PULSE 89–106; RESP 17–18; TEMP 36.2–37.1; O2SAT 95–99
[2022-10-17] MEDS: HYDROMORPHONE 0.5 MG INJ IV ×4 (00:04→18:05)
[2022-10-17] MEDS: CEFAZOLIN 2 GM/100 ML PREMIX 100 ML IV (01:43)
[2022-10-17] MEDS: OXYCODONE IR 10 MG TABLET PO ×6 (01:43→20:40)
[2022-10-17] MEDS: LORazepam 1 MG TABLET PO (02:59)
--- NOTE | 2022-10-17 03:01 | PC.NURSE ---
This Rn called Dr. Vuong at 0245, informed that patient has not slept tonight and pain not being managed w/ current meds, pt states pain states at 8/10 despite pain meds being given. 1mg PO Ativan order placed and given to patient.
[2022-10-17] MEDS: LEVOTHYROXINE 50 MCG TABLET PO (06:01)
[2022-10-17 06:24] LABS: Hematocrit 39.8 % (36-46); Hemoglobin 13.6 g/dL (12.0-16.0)
--- NOTE | 2022-10-17 07:31 | PM.PNPO.1 ---
Subjective Subjective Date Patient Seen: 10/17/22 Time Patient Seen: 07:31 Interval history: Patient states she had a terrible night and was in significant pain. No fever /chills. No nausea /vomiting. Exam Vital Signs (past 8 hours): - 10/17/22 00:03 10/17/22 01:57 10/17/22 05:00 Temperature 97.4 F L 98.1 F Pulse Rate 89 98 H 89 Respiratory Rate 18 18 Blood Pressure 185/71 H 186/75 H 153/68 H Pulse Oximetry 99 96 Oxygen Flow Rate 0 0 Oxygen Delivery Method Room Air Oxygen Flow Rate 0 Narrative Exam Narrative: 77-year-old female resting comfortably in bed in no apparent distress. Motor functions intact bilateral lower extremities. Sensation grossly intact to light touch bilateral lower extremities. Const General: cooperative and comfortable Nutritional Appearance: average body habitus Orientation: alert Resp Effort & Inspection: normal respiratory effort and able to speak in complete sentences Objective Labs 10/17/22 05:56 Labs: Laboratory Results - last 24 hr 10/17/22 05:56 Hgb 13.6 Hct 39.8 PFSH Medical History Anxiety Arthritis BCC (basal cell carcinoma) Carpal tunnel syndrome, bilateral Facet arthropathy, lumbar History of COVID-19 (~11/2021) Insomnia Sacral dysfunction Spinal stenosis Spondylolisthesis TIA (transient ischemic attack) (~2011) Trigger finger Ulnar tunnel syndrome Surgical History H/O cardiac radiofrequency ablation H/O hysterectomy for benign disease History of carpal tunnel surgery of right wrist History of heart surgery (~2011) History of laminectomy (~2003) History of lumbar spinal fusion (01/26/21) History of tonsillectomy and adenoidectomy History of total right hip arthroplasty (11/16/15) Hx of appendectomy Hx of bilateral cataract extraction (2015) Hx of laminectomy (~1984) Hx of removal of cyst (1984) Hx of shoulder surgery Family History Father Stroke Social History household members: spouse Smoking Status: Former smoker alcohol intake: current Assessment & Plan Post-op Postoperative Procedures: Procedures Operation Date: 10/16/22 09:15 Actual Procedure Side Surgeon p L2-3 TLIF, L2-S1 PSF w. instrumentation Not Applicable Paolo Thompson MD Postoperative day: 1 Postoperative status: doing well and marginal pain control Postoperative plan: routine post-op care Postoperative plan narrative: Discontinue Araujo catheter Mobilize with physical therapy, limit bending, twisting, lifting Multimodal pain management Disposition likely tomorrow Quality VTE Deep Vein Thrombosis/Pulmonary Embolism Present on Admission: No
[2022-10-17] MEDS: hydrOXYzine pamoate 25 MG CAPSULE PO ×4 (07:38→20:43)
[2022-10-17] MEDS: MAGNESIUM OXIDE 400 MG TABLET PO (08:08)
[2022-10-17] MEDS: GLIMEPIRIDE 2 MG TABLET 4 MG PO (08:08)
[2022-10-17] MEDS: DOCUSATE 100 MG CAPSULE PO ×2 (08:08→20:42)
[2022-10-17] MEDS: ASCORBIC ACID 500 MG TABLET 1000 MG PO (08:08)
[2022-10-17] MEDS: CHOLECALCIFEROL (VITAMIN D3) 1,000 UNIT TABLET 2000 UNIT PO (08:08)
[2022-10-17] MEDS: ACETAMINOPHEN 325 MG TABLET 650 MG PO ×2 (08:09→20:39)
[2022-10-17] MEDS: SEMAGLUTIDE 7 MG 7 EACH PO (08:09)
--- NOTE | 2022-10-17 09:51 | PT.IIE ---
Current Diagnoses Spinal stenosis, lumbar region without neurogenic claudication (10/16/22) Other mechanical complication of other internal orthopedic devices, implants and grafts, initial encounter (10/16/22) Surgery Performed Operation Date: 10/16/22 09:15 Actual Procedures p L2-3 TLIF, L2-S1 PSF w. instrumentation(Not Applicable) - Paolo Thompson MD Surgical History (Last Reviewed 10/17/22 @ 07:32 by Joseluis Cabrera PA-C) H/O cardiac radiofrequency ablation H/O hysterectomy for benign disease History of carpal tunnel surgery of right wrist History of heart surgery (~2011) History of laminectomy (~2003) History of lumbar spinal fusion (01/26/21) History of tonsillectomy and adenoidectomy History of total right hip arthroplasty (11/16/15) Hx of appendectomy Hx of bilateral cataract extraction (2015) Hx of laminectomy (~1984) Hx of removal of cyst (1984) Hx of shoulder surgery Medical History (Last Reviewed 10/17/22 @ 07:32 by Joseluis Cabrera PA-C) Anxiety Arthritis BCC (basal cell carcinoma) Carpal tunnel syndrome, bilateral Facet arthropathy, lumbar History of COVID-19 (~11/2021) Insomnia Sacral dysfunction Spinal stenosis Spondylolisthesis TIA (transient ischemic attack) (~2011) Trigger finger Ulnar tunnel syndrome Physical Therapy Inpatient Evaluation/Re-Eval M1 PT/OT-IP Prior Functional Status Start: 10/17/22 08:41 Freq: NEEDED Status: Active Protocol: Document 10/17/22 09:31 ES (Rec: 10/17/22 09:51 ES [id number]) Medical Review Prior Functional Status Medical History Reviewed Yes Diet/Fluid Consistency Regular Communication WFL Mobility and Gait Indep without AD Activities of Daily Living and IADL's Indep with chief human resources officer for cleaning Social History Household Members spouse Living Arrangements House Number of Floors (Floors) Two Floors Number of Stairs To Enter/Railing? 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 is picking up FWW and raised toilet seat at [facility] today. M2 PT-IP Current Condition Start: 10/17/22 08:41 Freq: NEEDED Status: Active Protocol: Document 10/17/22 09:31 ES (Rec: 10/17/22 09:51 ES [id number]) Physical Therapy Current Condition Current Condition Evaluation Date 10/17/22 Treatment Diagnosis S/p TLIF Onset Date 10/16/22 M3 PT-IP Subjective Start: 10/17/22 08:41 Freq: NEEDED Status: Active Protocol: Document 10/17/22 09:31 ES (Rec: 10/17/22 09:51 ES [id number]) Subjective Physical Therapy Visit Type Type Initial Evaluation Visit Start Time 08:46 Visit Stop Time 09:27 Total Visit Minutes 41 Physical Therapy Visit Comments Patient Comments Patient resting comfortably in bed, though reported her pain levels are high. With further explanation of pain scale, patient reported moderate pain at rest. Patient stated she has had back surgeries in the past but this one has been the most painful. Patient was agreeable to work with PT. Therapy Pain Assessment Pain When Pain Assessed At Rest Pain Present Pain Present Pain Reported Location Lower Back Intensity 5 Scale Used Numeric (0 - 10) Pain Management Techniques Apply Cold,Re-positioning, Timing of Activity with Medications M4 PT-IP Mobility and Gait Start: 10/17/22 08:41 Freq: NEEDED Status: Active Protocol: Document 10/17/22 09:31 ES (Rec: 10/17/22 09:51 ES [id number]) PT-Bed Mobility Assessment Rolling Type of Rolling Log Rolling,Bilateral Level of Assist Moderate Assistance,1 Person Assistance Supine to Sit Supine to Sit Moderate Assistance,1 Person Assistance,Bedrails Sit to Supine Sit to Supine Moderate Assistance,1 Person Assistance,Bedrails Scooting Scooting to Edge of Bed Minimal Assistance PT-Transfer Assessment Sit to and From Stand Sit to and from Stand Moderate Assistance,1 Person Assistance,Use of Upper Extremities Equipment Transfer Assistive Device Gait Belt,Front Wheeled Walker Orthotic/Prosthetic Devices or Brace: No Transfers Transfer Destination Bed Transfer Technique Ambulation Transfer Ability Level of Assist Contact Guard Assistance,1 Person Assistance Gait Assessment Gait Gait Assistance Required: Contact Guard Assist Distance (Feet) 20 Assistive Devices Assistive Device Gait Belt,Front Wheeled Walker Orthotic/Prosthetic Devices or Brace: No Gait Deviations General Gait Pattern Antalgic,Ataxic,Decreased Stride Length,Decreased Feet Clearance,Wide Based Gait Factors Limiting Gait Function Factors Limiting Gait Function Decreased Strength,Pain,Poor Balance Comments Gait Comments Patient initially demonstrated ataxic gait with short shuffling steps, wide JAQUI, and slow gait speed. This improved with further ambulation. Patient was unsteady and required CGA to reduce fall risk. PT-Balance Assessment Sitting Balance and Reactions Static Sitting Balance Ability Good Dynamic Sitting Balance Ability Fair Standing Balance and Reactions Static Standing Balance Ability Fair Dynamic Standing Balance Ability Fair Device Used FWW Comments Other Balance Tests/Deviations/Treatment Patient had LOB with sitting : while attempting to put socks on sitting EOB. She also had LOB with first attempt of STS. M5 PT-IP Objective Assessments Start: 10/17/22 08:41 Freq: NEEDED Status: Active Protocol: Document 10/17/22 09:31 ES (Rec: 10/17/22 09:51 ES [id number]) Orientation Orientation/Cognition Level of Alertness Lethargic Language Function Ability Word Finding Difficulties Safety Awareness Decreased Safety Awareness Memory Description No Deficits Noted Comments Patient had received pain meds prior to treatment and was intermittently drowsy during visit. Gross Range of Motion Upper Extremity ROM Assessment Within Functional Limits Lower Extremity ROM Assessment Within Functional Limits Strength Upper Extremity Strength Assessment Bilaterally Impaired Lower Extremity Strength Assessment Bilaterally Impaired Comments Strength Comments BUE strength grossly 4/5 BLE strength grossly 4-/5 Coordination Assessment Gross Coordination Gross Coordination WNL Sensation Assessment Comments Sensation Comments Patient reported some tingling /sensation awareness in L foot , otherwise WNL. M6 PT-IP Treatment Start: 10/17/22 08:41 Freq: NEEDED Status: Active Protocol: Document 10/17/22 09:31 ES (Rec: 10/17/22 09:51 ES [id number]) Physical Therapy Treatment Education Education Provided Precautions,Post-Op Packet, Safety M7 PT-IP Assessment and Plan Start: 10/17/22 08:41 Freq: NEEDED Status: Active Protocol: Document 10/17/22 09:31 ES (Rec: 10/17/22 09:51 ES [id number]) PT Summary Assessment and Plan Potential Rehabilitation Potential Good Status of Condition at Evaluation Evolving Summary Impairments Pain,Strength,Balance,Bed Mobility,Transfers,Gait, Activity Tolerance Assessment Summary Patient is a 77 year old female POD 1 s/p TLIF. Patient presents with impaired mobility 2/2 the above problems. Patient was educated in post-op instructions and demonstrated fair understanding. She required cues for lumbar precautions throughout visit with fair follow-through. Her pain increased during transitional movements, though remained at moderate level with sitting and standing. She was initially unsteady with dynamic sitting and standing, and is at increased risk for falls. She was able to tolerate short distance ambulation using FWW with CGA and good pain control. She will benefit from skilled therapy to further educate patient and spouse on precautions and instructions and to advance mobility to increase indendence in order to return home safely. Goals Bed Mobility Goal Independent Transfer Goal Independent,Front Wheeled Walker Gait Goal Independent,Front Wheel Walker Gait Distance 150 ft Other Goals Patient will be able to ascend /descend 12 stairs with B rails with SBA. Days to Meet Goals 7 Frequency of Treatment Frequency Of Treatment Twice a Day Treatment Plan Physical Therapy Treatment Plan Bed Mobility Training,Transfer Training,Gait Training, Therapeutic Exercise,Post Op Education,Discharge Planning, Hot or Cold Pack Precautions Lumbar Precautions Log Roll,No Twisting,Limit Bending,Lifting Restriction of 10 lbs,Gait Belt above Incisional Area Weight Bearing Status Weight Bearing Status Weight Bear as Tolerated Recommendations To Nursing Amount of Assist Needed 1 Person Assist Discharge Recommendations PT Discharge Recommendations Home with Assistance Transportation Needs at Discharge Private Vehicle
--- NOTE | 2022-10-17 13:15 | PT.IPTN ---
Current Diagnoses Spinal stenosis, lumbar region without neurogenic claudication (10/16/22) Other mechanical complication of other internal orthopedic devices, implants and grafts, initial encounter (10/16/22) Surgery Performed Operation Date: 10/16/22 09:15 Actual Procedures p L2-3 TLIF, L2-S1 PSF w. instrumentation(Not Applicable) - Paolo Thompson MD Physical Therapy Treatment Note M2 PT-IP Current Condition Start: 10/17/22 08:41 Freq: NEEDED Status: Active Protocol: Document 10/17/22 09:31 ES (Rec: 10/17/22 09:51 ES [id number]) Physical Therapy Current Condition Current Condition Evaluation Date 10/17/22 Treatment Diagnosis S/p TLIF Onset Date 10/16/22 M3 PT-IP Subjective Start: 10/17/22 08:41 Freq: NEEDED Status: Active Protocol: Document 10/17/22 14:00 TS (Rec: 10/17/22 14:26 TS [id number]) Subjective Physical Therapy Visit Type Type Treatment Note Visit Start Time 13:15 Visit Stop Time 13:54 Total Visit Minutes 39 Notes Spouse in room. Number of SALES AND MARKETING ADMINISTRATOR Visits 1 Physical Therapy Visit Comments Patient Comments Pt found resting in bed, reports pain is getting better but increases with movement, would like catheter removed, agreeable to work with PT. Therapy Pain Assessment Pain When Pain Assessed At Rest Pain Present Pain Present Pain Reported M4 PT-IP Mobility and Gait Start: 10/17/22 08:41 Freq: NEEDED Status: Active Protocol: Document 10/17/22 14:00 TS (Rec: 10/17/22 14:26 TS [id number]) PT-Bed Mobility Assessment Rolling Type of Rolling Log Rolling,Bilateral Level of Assist Contact Guard Assistance,1 Person Assistance Supine to Sit Supine to Sit Minimal Assistance,1 Person Assistance,Bedrails Sit to Supine Sit to Supine Minimal Assistance Scooting Scooting to Edge of Bed Standby Assistance Scooting Up and Down in Bed Standby Assistance PT-Transfer Assessment Sit to and From Stand Sit to and from Stand Standby Assistance,Use of Upper Extremities Equipment Transfer Assistive Device Gait Belt,Front Wheeled Walker Orthotic/Prosthetic Devices or Brace: No Comments Mobility Comments Pt found resting in bed, agreeable to PT session. Pt recalled 0/3 spinal precautions prior to session. Logroll CGA, provided cues for sequencing and spinal precautions. Supine to sit Tiffanie, required cues for handplacement and LE sequencing. Sit to stand x1 SBA with BUE support on FWW, slight posterior LOB corrected with FWW. Pt ambulated ~300' SBA with decreased foot length and height, veers to the right requiring verbal cues to avoid objets in hallway. She performed platform step x1 CGA , c/o increased pain, ambulated back to room. Sit to supine Tiffanie for LEs and provided cues for logroll. Pt was left in bed with call light nearby, spouse in room, RN notified. Gait Assessment Gait Gait Assistance Required: Standby Assistance Distance (Feet) 300 Assistive Devices Assistive Device Gait Belt,Front Wheeled Walker Orthotic/Prosthetic Devices or Brace: No Gait Deviations General Gait Pattern Antalgic,Ataxic,Decreased Stride Length,Decreased Feet Clearance,Wide Based Gait Factors Limiting Gait Function Factors Limiting Gait Function Decreased Strength,Pain,Poor Balance Comments Gait Comments See mobility comments. Stair Climbing Assessment Evaluation Level of Assist On Stairs Contact Guard Assistance,1 Person Assistance Devices Stair Climbing Assistive Devices Front Wheel Walker Technique/Endurance Stair Climbing Direction Ascend and Descend Stair Climbing Technique Step to Step Number of Steps Climbed 1 Comments Stair Climbing Comments See mobility comments. PT-Balance Assessment Sitting Balance and Reactions Static Sitting Balance Ability Good Dynamic Sitting Balance Ability Fair Standing Balance and Reactions Static Standing Balance Ability Good Dynamic Standing Balance Ability Fair Device Used FWW Comments Other Balance Tests/Deviations/Treatment Pt with x1LOB with sit to : stand, recovered with FWW. M5 PT-IP Objective Assessments Start: 10/17/22 08:41 Freq: NEEDED Status: Active Protocol: Document 10/17/22 09:31 ES (Rec: 10/17/22 09:51 ES [id number]) Orientation Orientation/Cognition Level of Alertness Lethargic Language Function Ability Word Finding Difficulties Safety Awareness Decreased Safety Awareness Memory Description No Deficits Noted Comments Patient had received pain meds prior to treatment and was intermittently drowsy during visit. Gross Range of Motion Upper Extremity ROM Assessment Within Functional Limits Lower Extremity ROM Assessment Within Functional Limits Strength Upper Extremity Strength Assessment Bilaterally Impaired Lower Extremity Strength Assessment Bilaterally Impaired Comments Strength Comments BUE strength grossly 4/5 BLE strength grossly 4-/5 Coordination Assessment Gross Coordination Gross Coordination WNL Sensation Assessment Comments Sensation Comments Patient reported some tingling /sensation awareness in L foot , otherwise WNL. M6 PT-IP Treatment Start: 10/17/22 08:41 Freq: NEEDED Status: Active Protocol: Document 10/17/22 14:00 TS (Rec: 10/17/22 14:26 TS [id number]) Physical Therapy Treatment Education Education Provided Precautions,Post-Op Packet, Safety M7 PT-IP Assessment and Plan Start: 10/17/22 08:41 Freq: NEEDED Status: Active Protocol: Document 10/17/22 14:00 TS (Rec: 10/17/22 14:26 TS [id number]) PT Summary Assessment and Plan Potential Rehabilitation Potential Good Summary Impairments Pain,Strength,Balance,Bed Mobility,Transfers,Gait, Activity Tolerance Assessment Summary Pt is progressing well with her mobility this session. She recalled 0/3 spinal precautions prior to session. She is Tiffanie with supine to sit , requires cueing for logroll technique. She progressed her sit to stands to SBA, had x1 LOB, corrected with use of FWW . She progressed her ambulation to ~300' in hallway SBA, tends to veer to the right requiring verbal cues for avoidance of objects. She performed stairs x1 on platform step CGA, pt reporting increased pain. PT recommends home with assist from spouse. Pt will need to complete 7 platform stpes with FWW tomorrow morning and will need continued education on spinal precautions, pt tends to twist too much. Goals Bed Mobility Goal Independent Transfer Goal Independent,Front Wheeled Walker Gait Goal Independent,Front Wheel Walker Gait Distance 150 ft Other Goals Patient will be able to ascend /descend 12 stairs with B rails with SBA. Days to Meet Goals 7 Frequency of Treatment Frequency Of Treatment Twice a Day Treatment Plan Physical Therapy Treatment Plan Bed Mobility Training,Transfer Training,Gait Training, Therapeutic Exercise,Post Op Education,Discharge Planning, Hot or Cold Pack Precautions Lumbar Precautions Log Roll,No Twisting,Limit Bending,Lifting Restriction of 10 lbs,Gait Belt above Incisional Area Weight Bearing Status Weight Bearing Status Weight Bear as Tolerated Recommendations To Nursing Amount of Assist Needed 1 Person Assist Discharge Recommendations PT Discharge Recommendations Home with Assistance Transportation Needs at Discharge Private Vehicle
--- NOTE | 2022-10-17 13:23 | CM.DANOTE ---
Addendum entered by CHARLEEN Bass 10/18/22 09:29: DCP Continued: This author checked in on patient prior to d/c today. Patient was A/Ox4. Patient reports still being in a lot of pain but otherwise having no needs from CM team at this time. CM team will continue to follow as necessary. TOMASA Original Note: DCP: Patient is a 77yo F here as inpatient status post TLIF. Payer: Medicare [facility] PCP: Dr. Marietta Savage GAS REVERSER entered room and introduced self and role. Patient was A/Ox4. Patient was accompanied in room by /Jermaine STEINER ([phone]). Patient reports being in a significant amount of pain following her surgery but currently is doing better after being administered pain medication. Patient reports being independent at baseline with ADLs and drives her own vehicle. Patient reports spouse picked up FWW and raised toilet for care at home. Patient spouse had some questions regarding HH. GAS REVERSER Fatuma Voung provided answers and offered additional information regarding expectations for d/c following patient's specific surgery. Plan: Current plan is home with family in POV upon d/c and for patient to follow up with outpatient PT. CM team will continue to follow closely. CHARLEEN Bass Discharge Planning/Care Management CM Discharge Assessment Start: 10/17/22 13:20 Freq: Status: Active Protocol: Document 10/17/22 13:21 (Rec: 10/17/22 13:22 [id number]) Discharge Planning Assessment Assigned Tank Builder And Erector CHARLEEN Bass/Assigned Designee Name Jermaine De Oliveira (spouse) Contact Information [phone] Advance Directives? Yes Advance Directives on File No History Provided By Patient,Significant Other, Medical Record Prior Living Arrangements House Comment 2 story Household Members spouse Type of transporation used prior to Drives own vehicle admit Independent with ADL's Yes Is patient alert and oriented? Yes DME Already Rented / Owned Elevated Toilet Seat,FWW / Walker Patient/Family Preference OP PT Therapy,OP OT Therapy Barriers to Discharge No Discharge Plan Home Transportation Arrangement Spouse Referrals Initiated None needed Whiteboard Updated in Patient Room with Yes name and ext. # of Tank Builder And Erector Review Status In Process Next Review Type Continued Stay Review Pre-Anesthesia Assessment Start: 10/10/22 09:48 Freq: Status: Active Protocol: Document 10/10/22 09:49 CAB (Rec: 10/10/22 10:50 CAB [id number]) Pre-Anesthesia Assessment PAC Comment Patient required multiple repeated instructions on medications to stop/continue. She would greatly benefit from having her accompany her to [facility] to assist with the admit process. She feels her memory issues are related to her pain and medications. Preferred Name Pat Patient Information Reviewed Via Phone Assessment Assessment Completed With Patient Diagnostic Results BMP/CMP,CBC,EKG Comment Labs@ [facility] 09/06/22 and outside labs scanned, not here Primary Care Provider Marietta Savage Seen Specialist in Last 12 Months Yes Specialist Seen Space [employer] Operations,Orthopedist Primary Language Georgian Preferred Language Georgian Cheese Cutter Required No Height 170.18 cm Weight 55.338 kg Body Mass Index (BMI) 19.1 Hearing Ability Normal Visual Assist Glasses Dentition Type Teeth, Natural Present Barriers to Learning Memory Comment Pt feels memory issue is related to pain in her back and medications Hx Anesthesia Reactions No Hx Family Anesthesia Reaction No Hx Malignant Hyperthermia No Hx Blood Transfusions No Anesthesia Review Requested No Transit Clerk No alcohol intake current alcohol intake frequency 0-2 drinks per day Smoking Status Former smoker how long ago did patient quit smoking Quit 1970 Substance Use Type does not use Pain Present Pain Reported Musculoskeletal Symptoms Abnormal Gait,Back Pain, Difficulty Walking History of Falling (Recent or History of Yes ) Patient is completely paralyzed or No completely immobile Mental Status Oriented to own ability Is patient on oxygen? No Does patient have WILKES/SOB No Hx Sleep Apnea No CPAP/BIPAP use not prescribed Currently Taking a Beta Luke Yes: Propranolol prn palpitations Can You Climb a Flight of Stairs Without Yes SOB Hx Chest Pain No Hx SOB No Hx Syncope or Dizziness No Anti-Coagulant Therapy No Has a Preventive Medicine Officer No Cardiac Testing No Hx Pacemaker/ICD No Pacemaker Rep Required? No Cardiac Clearance Received Not Applicable Diet Type At Home Regular Dysphagia Yes Gastrointestinal Symptoms Constipation Chronic UTI No Urinary Catheter Present No Hx Urinary Self Catheterization No Diabetes Yes: Pt checks blood sugar sporadically HgbA1C 6.0 Date 09/22/22 Patient No Lactating No Hx Drug Resistant Organism No Presence of External or Internal Medical Yes: Right shoulder, hip, Devices heart clip, eye IOLs, lumbar fusion Received a COVID vaccine? Yes Received all doses? Yes Marital Status Lives With spouse Current Living Arrangements House Number of Floors (Floors) Two Floors Number of Stairs To Enter/Railing? 9-10 Support System Child/Children,Spouse Does the Patient Have Assistance After Yes Surgery Patient Discharge Plan Description Return Home Comment Pt advised 2 night length of stay per surgeon Feels Safe in Current Environment Yes Been Physically Hurt or Threatened By a No Person in Current Environment Do you have thoughts of harming yourself None or others? Are you currently considering suicide? No Do you have a plan to hurt yourself or No Plan others? Do You Have Any Spiritual Beliefs That No May Affect Your HC Choices? Do You Have Any Cultural Practices That No May Affect Your HC Choices? Comment Jain Who Can We Speak to About Patient's Care Family, friends Identifying Code for Release of Patient Declines to issue Information Health Care Proxy/Next of Kin Edwar () Health Care Proxy Emergency Contact Name Bruce (son) Nick (son) Emergency Contact Phone Number Bruce: [phone] Nick: Advance Directives? Yes Advance Directives on File No Requested Patient Bring Advanced Yes Directives DOS Power of Battery Tester Yes Power of Battery Tester Name Edwar () Power of Battery Tester PAC Instructions Diabetes instructions,Durable medical equipment,Medications to take/avoid,Nasal antibiotic ,No ETOH/petroleum product on skin DOS,NPO,Post-op transportation,Pre-surgical wash,Sensory aids,Sturdy shoes /comfortable clothes,Do not bring valuables and remove jewelry
--- NOTE | 2022-10-17 14:52 | OT.IP.EVAL ---
Current Diagnoses Spinal stenosis, lumbar region without neurogenic claudication (10/16/22) Other mechanical complication of other internal orthopedic devices, implants and grafts, initial encounter (10/16/22) Surgery Performed Operation Date: 10/16/22 09:15 Actual Procedures p L2-3 TLIF, L2-S1 PSF w. instrumentation(Not Applicable) - Paolo Thompson MD Past Medical History (Last Reviewed 10/17/22 @ 07:32 by Joseluis Cabrera PA-C) Anxiety Arthritis BCC (basal cell carcinoma) Carpal tunnel syndrome, bilateral Facet arthropathy, lumbar History of COVID-19 (~11/2021) Insomnia Sacral dysfunction Spinal stenosis Spondylolisthesis TIA (transient ischemic attack) (~2011) Trigger finger Ulnar tunnel syndrome Surgical History (Last Reviewed 10/17/22 @ 07:32 by Joseluis Cabrera PA-C) H/O cardiac radiofrequency ablation H/O hysterectomy for benign disease History of carpal tunnel surgery of right wrist History of heart surgery (~2011) History of laminectomy (~2003) History of lumbar spinal fusion (01/26/21) History of tonsillectomy and adenoidectomy History of total right hip arthroplasty (11/16/15) Hx of appendectomy Hx of bilateral cataract extraction (2015) Hx of laminectomy (~1984) Hx of removal of cyst (1984) Hx of shoulder surgery Occupational Therapy Inpatient Evaluation/Re-Eval M1 PT/OT-IP Prior Functional Status Start: 10/17/22 08:41 Freq: NEEDED Status: Active Protocol: Document 10/17/22 14:30 [facility] (Rec: 10/17/22 15:19 [facility] [id number]) Medical Review Prior Functional Status Medical History Reviewed Yes Diet/Fluid Consistency Regular Communication WFL Mobility and Gait Indep without AD Activities of Daily Living and IADL's Indep with medical transcription editor for cleaning Social History Household Members spouse Living Arrangements House Number of Floors (Floors) Two Floors Number of Stairs To Enter/Railing? 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 is picking up FWW and raised toilet seat at [facility] today. M2 OT-IP Current Condition Start: 10/17/22 14:54 Freq: Status: Active Protocol: Document 10/17/22 14:30 [facility] (Rec: 10/17/22 15:19 [facility] [id number]) Occupational Therapy Current Condition Current Condition Evaluation Date 10/17/22 Treatment Diagnosis S/p L2-3 TLIF, L2-S1 PSF Diagnosis Onset Date 10/16/22 Post Operative Precautions Lumbar Precautions Log Roll,No Twisting,Limit Bending,Lifting Restriction of 10 lbs,Gait Belt above Incisional Area M3 OT- IP Subjective and Pain Start: 10/17/22 14:54 Freq: Status: Active Protocol: Document 10/17/22 14:30 [facility] (Rec: 10/17/22 15:19 [facility] [id number]) OT- Subjective Occupational Therapy Visit Type Type Initial Evaluation Visit Start Time 14:30 Visit Stop Time 14:52 Total Visit Minutes 22 Occupational Therapy Visit Comments Patient Comments Pt agreed to get up to brsuh her teeth. Patient/Caregiver Goals To go home. OT Pain Assessment Pain When Pain Assessed At Rest Pain Present Pain Present Pain Reported Location Lower Back Intensity 2 Scale Used Numeric (0 - 10) M4 OT- IP ADL's Start: 10/17/22 14:54 Freq: Status: Active Protocol: Document 10/17/22 14:30 [facility] (Rec: 10/17/22 15:19 [facility] [id number]) OT [id number] Comments OT Self-Feeding Comments NOt at meal time OT ADL-Grooming General Evaluation Grooming Ability Independent OT ADL-Oral Care General Eval Oral Care Ability Independent Comments Oral Care Comments Pt needing initial vc best to hinge at her hips to spit to just spit into a cup to best follow her back precautions. OT ADL-Dressing General Eval Lower Body Dressing Ability Standby Assistance Comments OT Dressing Comments Pt able to lift her legs up while in bed to readjust her hips. OT ADL-Toileting Comments OT Toileting Comments Pt not having to go but able to comfortably reach in order to wipe appropriately. Suggested use of pads at night so not having to hurry to the bathroom at night. OT ADL-Bathing Comments OT Bathing Comments Pt agreed to shower tomorrow. M5 OT- IP IADL's Start: 10/17/22 14:54 Freq: Status: Active Protocol: Document 10/17/22 14:30 [facility] (Rec: 10/17/22 15:19 [facility] [id number]) OT-Instrumental Activities of Daily Living Deficits IADL Deficits Identified Deficits Home Safety Awareness Home Safety Comments Pt is a little groggy and not thinking well and needing MAX vc for her back precautions. At this time it would be best for her to assist with her needs. M6 OT- IP Functional Cognition Start: 10/17/22 14:54 Freq: Status: Active Protocol: Document 10/17/22 14:30 [facility] (Rec: 10/17/22 15:19 [facility] [id number]) Cognitive Factors Limiting Selfcare Function Cognitive Ability Level of Alertness Alert,Drowsy Patient Orientation Name,Place,Situation Attention Span Ability Capable of Focused Attention, Capable of Sustained Attention Ability to Follow Commands Able to Follow One Step Commands with Increased Time, Able to Follow One Step Commands with Repetition Safety Awareness Decreased Recall of Precautions,Decreased Ability to Apply Precautions Cognitive Comments Cognitive Assessment Comments Pt not remembering her back precautions and needing cues to incorporate especially during log rolling needs. OT- Vision and Hearing OT- Hearing Assessment OT- Hearing Assessment WFL M7 OT- IP Mobility and Balance Start: 10/17/22 14:54 Freq: Status: Active Protocol: Document 10/17/22 14:30 [facility] (Rec: 10/17/22 15:19 [facility] [id number]) OT- Bed Mobility Assessment Supine to Sit Supine to Sit Assist Minimal Assistance,Maximum Assistance Sit to Supine Sit to Supine Assist Minimal Assistance,Maximum Assistance Scooting Scooting to Edge of Bed Contact Guard Assistance OT-Transfer Assessment Sit to and From Stand Sit to and from Stand Minimal Assistance,Moderate Assistance Transfers Transfer Ability Contact Guard Assistance Technique Transfer Destination Bed Transfer Technique Stand Step Pivot Devices Transfer Assistive Devices Gait Belt,Front Wheeled Walker Comments Mobility Comments Initially pt needing MAXA to get her trunk upright and cues to roll to ensure the weight in over her hips so better able to get from sidelying to seated position. Able to practice over and over , pt still needing JESSIE. Pt MODA to stand to FWW. Educated pt to control her trunk and legs as initially used so much momentum that the therapist had to catch her from falling over. OT- Balance Assessment Sitting Balance and Reactions Static Sitting Balance Ability Fair Dynamic Sitting Balance Ability Fair Standing Balance and Reactions Static Standing Balance Ability Fair M9 OT- IP Assessment and Plan Start: 10/17/22 14:54 Freq: Status: Active Protocol: Document 10/17/22 14:30 [facility] (Rec: 10/17/22 15:19 [facility] [id number]) OT Summary Assessment and Plan Potential Rehabilitation Potential Good Analytic Complexity at Evaluation Low Summary OT Impairments Pain,Balance,Functional Cognition,Functional Mobility, Grooming,Dressing,Toileting, Bathing,Toilet Transfers, Shower Transfers Progress Towards Goals Progressing Toward Goals,Slow Progress due to Cognition Assessment Summary Pt low complexity and main barriers are pt a bit groogy and having difficulty to follow directions for her back precautions especially during log rolling needs. Pending progress,pt would greatly benefit from home health in her environment to work on safety of transfers, steps, and to keep practicing her back precautions during ADl and mobility needs. Goals Self-Feeding Goal Independent Grooming Goal Independent Dressing Goal Standby Assistance Toileting Goal Independent Bathing Goal Standby Assistance Toilet Transfer Goal Independent Shower Transfer Goal Independent Patient/Caregiver Education Goal Demonstrate Post-Op Precautions Days to Meet Goals 22 Frequency of Treatment Frequency Of Treatment Once a Day Treatment Plan OT Treatment Plan ADL Training,Functional Cognition Training,Functional Mobility,Patient/Family Education,Discharge Planning Other Treatment Recommendations and Next Shower Treatment Focus Discharge Recommendations OT Discharge Recommendations Home with Assistance,Home Health Transportation Needs at Discharge Private Vehicle
[2022-10-17] MEDS: DULOXETINE 30 MG CAPSULE PO (20:39)
[2022-10-17] MEDS: SENNOSIDES 8.6 MG TABLET 17.2 MG PO (20:42)
[2022-10-18 00:04] VITALS: BP 149/64; PULSE 109; RESP 16; TEMP 36.4; O2SAT 96
[2022-10-18 04:49] VITALS: BP 141/70; PULSE 110; RESP 16; TEMP 36.8; O2SAT 95
[2022-10-18] MEDS: LEVOTHYROXINE 50 MCG TABLET PO (05:52)
[2022-10-18] MEDS: OXYCODONE IR 10 MG TABLET PO ×2 (05:52→09:08)
--- NOTE | 2022-10-18 06:38 | P.DS_ITS ---
History of Present Illness History of Present Illness Date Patient Seen: 10/18/22 Time Patient Seen: 06:38 Chief complaint: INPT Narrative: Operative Date/Time/Diagnoses Date of procedure: 10/16/22 Time of procedure: 10:00 Pre-op diagnosis: 1. Lumbar loosened hardware 2. History of lumbar fusion with pseudoarthrosis 3. L2-3 spinal stenosis with neurogenic claudication Post-op diagnosis: same Procedure & Clinicians Procedure: 1. L2-3 posterolateral and posterior interbody fusion 2. L2-3 posterior interbody cage placement 3. L3-4, L4-5, L5-S1 posterior segmental instrumentation removal 4. L3-4, L4-5, L5-S1? revision laminectomy with exploration of fusion 5. L2-3, L3-4, L4-5, L5-S1 posterior segmental instrumentation with pedicle screw placement 6. L5-S1 posterolatearl fusion 7. Clutier of bone marrow from iliac crest through a separate incision 8. Utilization of microsurgical technique and operating microscope Same procedure as scheduled: Yes Indications: Patient has been having chronic back pain and worsening lumbar radiculopathy.? Patient has CT scan showing loosening hardware in her lumbar 2 years post lumbar fusion from L3-S1. Patient failed multiple conservative management with worsening pain weakness and numbness in her lower extremity as well as pain in her lower back with mechanical clicking due to the hardware loosening.? Patient has been having difficulty performing activity of daily living.? After discussing risks benefits of treatment options, patient elected proceed with surgery. Surgeon: Paolo Thompson Procurement Cost Coordinator: Brook De León Click Yes if Unassisted: No Anesthesia Type: General Operative Notes Closure Type: primary Specimen(s): none sent Prosthetic devices, grafts, tissues, transplants, or devices: Globus CREO MIS screws, Rise cages Applied: catheter Estimated Blood Loss (mL): 100 Blood products transfused: none Discharge Providers Provider Date of admission: 10/16/22 08:25 Discharge Date: 10/18/22 Primary care physician: Marietta Savage MD Consults: 10/16/22 14:01 Consult to Occupational Therapy Evaluate & Treat Comment: Physician Instructions: Evaluate and treat Consult to Physical Therapy Evaluate & Treat Comment: Physician Instructions: Evaluate and Treat Discharge provider: Meg Currie PA-C Summary Hospital Course Discharge Diagnosis: Lumbar loosened hardware, History of lumbar fusion with pseudoarthrosis, L2-3 spinal stenosis with neurogenic claudication. S/p exploration of prior fusion, hardware revision, and L2-3 TLIF. Hospital Course: Ms De Oliveira's hospital course was remarkable for low back pain, which slowed her progress w/ PT. On the morning of POD# 2, she continued to c/o low back pain and we discussed that this was to be expected after surgery. She felt like she could go home later in the day if she was feeling better. She was eating and voiding without difficulty. She will be discharged with oxycodone 5mg and was advised she could take 2 at once if needed for pain. Exam Vital Signs (past 8 hours): - 10/18/22 00:04 10/18/22 04:49 Temperature 97.5 F L 98.3 F Pulse Rate 109 H 110 H Respiratory Rate 16 16 Blood Pressure 149/64 H 141/70 H Pulse Oximetry 96 95 Oxygen Flow Rate 0 0 Oxygen Delivery Method Room Air Oxygen Flow Rate 0 Narrative Exam Narrative: 5/5 strength in quadriceps, hamstrings, DF, PF, EHL; 4/5 hip flexors bilaterally. Sensation to light touch intact throughout BLE. Calves soft, compressible, nontender. Dressing was changed yesterday and is CDI. Objective Labs 10/17/22 05:56 PFSH Medical History Anxiety Arthritis BCC (basal cell carcinoma) Carpal tunnel syndrome, bilateral Facet arthropathy, lumbar History of COVID-19 (~11/2021) Insomnia Sacral dysfunction Spinal stenosis Spondylolisthesis TIA (transient ischemic attack) (~2011) Trigger finger Ulnar tunnel syndrome Surgical History H/O cardiac radiofrequency ablation H/O hysterectomy for benign disease History of carpal tunnel surgery of right wrist History of heart surgery (~2011) History of laminectomy (~2003) History of lumbar spinal fusion (01/26/21) History of tonsillectomy and adenoidectomy History of total right hip arthroplasty (11/16/15) Hx of appendectomy Hx of bilateral cataract extraction (2015) Hx of laminectomy (~1984) Hx of removal of cyst (1984) Hx of shoulder surgery Family History Father Stroke Social History household members: spouse Smoking Status: Former smoker alcohol intake: current Discharge Assessment & Plan Assessment and Plan Assessment: Lumbar loosened hardware, History of lumbar fusion with pseudoarthrosis, L2-3 spinal stenosis with neurogenic claudication. S/p exploration of prior fusion, hardware revision, and L2-3 TLIF. Plan of Treatment: Discharge home after PT if PT agrees and pain moderately controlled w/ oxycodone and Vistaril. F/u in office in 2 weeks as scheduled. Discharge Plan Discharge Plan Patient Disposition: Home Discharge orders & Medications Prescriptions: New docusate sodium 100 mg Capsule 100 mg PO BID PRN (Reason: constipation) Qty: 60 1RF hydroxyzine pamoate 25 mg Capsule 25 mg PO Q4HR PRN (Reason: muscle spasm) Qty: 120 0RF oxycodone 5 mg tablet 5 mg PO Q4-6H PRN (Reason: pain, severe) Qty: 60 0RF Continued celecoxib [Celebrex] 200 mg capsule 200 mg PO DAILY Qty: 90 2RF zolpidem 5 mg Tablet 2.5 mg PO BEDTIME PRN (Reason: Sleep) Rybelsus 7 mg Tablet 7 mg PO DAILY cyclobenzaprine 10 mg tablet See Rx Instructions .ROUTE .COMPLEX PRN (Reason: Muscle Spasm) Rx Instructions: TAKE ONE TABLET BY MOUTH THREE TIMES DAILY NEEDED FOR MUSCLE SPASM propranolol 40 mg Tablet 20 mg PO DAILY PRN (Reason: Palpitations) diphenhydramine HCl [Benadryl] 25 mg Capsule 50 mg PO BEDTIME PRN (Reason: Sinus congestion) acetaminophen 500 mg capsule 500 mg PO Q6HR MDD Max 6 tabs per day PRN (Reason: Pain, Mild (1-3)) Qty: 90 0RF docusate sodium [DOK] 100 mg Capsule 100 mg PO BID PRN (Reason: Constipation from the narcotic pain medications) Qty: 30 0RF levothyroxine [Synthroid] 50 mcg tablet 50 mcg PO DAILY ascorbic acid (vitamin C) 500 mg capsule 1,000 mg PO DAILY cholecalciferol (vitamin D3) 3,000 unit tablet 50 mcg PO DAILY magnesium 250 mg tablet 400 mg PO DAILY glimepiride 4 mg tablet 4 mg PO DAILY trazodone 100 mg tablet 100 mg PO BEDTIME PRN (Reason: insomnia) Qty: 90 2RF duloxetine [Cymbalta] 30 mg capsule,delayed release(DR/EC) 30 mg PO .Qhs MDD 2 Qty: 60 3RF Follow up/Referrals: Paolo Thompson MD [Physician] - As previously scheduled (Follow up with Meg Currie PA-C, on 10/27/2022 @ 4:30 pm at [facility] office in [place].) Marietta Savage MD [Primary Care Provider] - Diet/Activity/Treatments Activity: No deep bending or twisting at the waist. No lifting more than 10 pounds. Cold/Heat Therapy: Heating pad or ice pack to low back as needed for pain. Skin/Wound/Dressing Care Report to your healthcare provider any signs of infection, such as:: chills, f ever, night sweats, unusual drainage and unusual redness Dressing: May shower; keep dressing as dry as possible. If dressing becomes wet or dirty, may remove and replace with clean, dry gauze. No bathing or otherwise soaking incisions. Do not apply any creams, lotions, or ointments to incisions. Visit Report/Discharge Packet Instructions: DI for Prescription Opioid Use, DI for Transforaminal Lumbar Interbody Fusion Stand Alone Forms: Patient Portal/API, Stroke Signs & Symptoms, Surgery Discharge Discharge Data Primary Care Provider: Marietta Savage Quality VTE Deep Vein Thrombosis/Pulmonary Embolism Present on Admission: No
[2022-10-18 07:00] VITALS: BP 141/60; PULSE 104; RESP 17; TEMP 36.6; O2SAT 95
[2022-10-18] MEDS: GLIMEPIRIDE 2 MG TABLET 4 MG PO (09:08)
[2022-10-18] MEDS: ASCORBIC ACID 500 MG TABLET 1000 MG PO (09:08)
[2022-10-18] MEDS: DOCUSATE 100 MG CAPSULE PO (09:08)
[2022-10-18] MEDS: CHOLECALCIFEROL (VITAMIN D3) 1,000 UNIT TABLET 2000 UNIT PO (09:08)
[2022-10-18] MEDS: SEMAGLUTIDE 7 MG 7 EACH PO (09:09)
[2022-10-18] MEDS: MAGNESIUM OXIDE 400 MG TABLET PO (09:09)
--- NOTE | 2022-10-18 09:30 | PT.IPTN ---
Current Diagnoses Spinal stenosis, lumbar region without neurogenic claudication (10/16/22) Other mechanical complication of other internal orthopedic devices, implants and grafts, initial encounter (10/16/22) Arthrodesis status (10/16/22) Surgery Performed Operation Date: 10/16/22 09:15 Actual Procedures p L2-3 TLIF, L2-S1 PSF w. instrumentation(Not Applicable) - Paolo Thompson MD Physical Therapy Treatment Note M2 PT-IP Current Condition Start: 10/17/22 08:41 Freq: NEEDED Status: Active Protocol: Document 10/17/22 09:31 ES (Rec: 10/17/22 09:51 ES [id number]) Physical Therapy Current Condition Current Condition Evaluation Date 10/17/22 Treatment Diagnosis S/p TLIF Onset Date 10/16/22 M3 PT-IP Subjective Start: 10/17/22 08:41 Freq: NEEDED Status: Active Protocol: Document 10/18/22 09:50 TS (Rec: 10/18/22 10:03 TS [id number]) Subjective Physical Therapy Visit Type Type Treatment Note Visit Start Time 09:30 Visit Stop Time 09:46 Total Visit Minutes 16 Number of EDITOR HOUSE ORGAN Visits 2 Physical Therapy Visit Comments Patient Comments Pt found resting in bed, reports pain in Left posterior hip, agreeable to PT. Therapy Pain Assessment Pain When Pain Assessed At Rest Pain Present Pain Present Pain Reported Location Lower Back Intensity 8 Scale Used Numeric (0 - 10) Description Aching,Tender,With Movement Pain Management Techniques Apply Cold,Re-positioning, Timing of Activity with Medications M4 PT-IP Mobility and Gait Start: 10/17/22 08:41 Freq: NEEDED Status: Active Protocol: Document 10/18/22 09:50 TS (Rec: 10/18/22 10:03 TS [id number]) PT-Bed Mobility Assessment Rolling Type of Rolling Log Rolling,Bilateral Level of Assist Contact Guard Assistance,1 Person Assistance Supine to Sit Supine to Sit Minimal Assistance,1 Person Assistance,Bedrails Sit to Supine Sit to Supine Minimal Assistance Scooting Scooting to Edge of Bed Standby Assistance Scooting Up and Down in Bed Standby Assistance PT-Transfer Assessment Sit to and From Stand Sit to and from Stand Standby Assistance,Moderate Assistance Equipment Transfer Assistive Device Gait Belt,Front Wheeled Walker Orthotic/Prosthetic Devices or Brace: No Comments Mobility Comments Pt found resting in bed, agreeable to PT. Pt recalled 2 /3 spinal precautions at start of treatment(no twisting). Logroll CGA, requires cues for handrail assist and sequencing. Supine to sit Tiffanie for uprighting trunk. Sit to stand SBA with FWW, no LOB. She ambulated ~5 feet to platform step SBA with WBOS and external rotation. She performed platform steps w/FWW x7 CGA, provided cues for step sequencing and FWW management. Sit to supine provided cues for logroll and Tiffanie for LEs into bed. Pt was left in bed with chair alarm on, nursing notified. Gait Assessment Gait Gait Assistance Required: Standby Assistance Distance (Feet) 5 Assistive Devices Assistive Device Gait Belt,Front Wheeled Walker Orthotic/Prosthetic Devices or Brace: No Gait Deviations General Gait Pattern Antalgic,Ataxic,Decreased Stride Length,Decreased Feet Clearance,Wide Based Gait Factors Limiting Gait Function Factors Limiting Gait Function Decreased Strength,Pain,Poor Balance Comments Gait Comments See mobility comments. Stair Climbing Assessment Evaluation Level of Assist On Stairs Contact Guard Assistance,1 Person Assistance Devices Stair Climbing Assistive Devices Front Wheel Walker Technique/Endurance Stair Climbing Direction Ascend and Descend Stair Climbing Technique Step to Step Number of Steps Climbed 7 Comments Stair Climbing Comments See mobility comments. PT-Balance Assessment Sitting Balance and Reactions Static Sitting Balance Ability Fair Dynamic Sitting Balance Ability Fair Standing Balance and Reactions Static Standing Balance Ability Fair Dynamic Standing Balance Ability Fair Device Used FWW M5 PT-IP Objective Assessments Start: 10/17/22 08:41 Freq: NEEDED Status: Active Protocol: Document 10/17/22 09:31 ES (Rec: 10/17/22 09:51 ES [id number]) Orientation Orientation/Cognition Level of Alertness Lethargic Language Function Ability Word Finding Difficulties Safety Awareness Decreased Safety Awareness Memory Description No Deficits Noted Comments Patient had received pain meds prior to treatment and was intermittently drowsy during visit. Gross Range of Motion Upper Extremity ROM Assessment Within Functional Limits Lower Extremity ROM Assessment Within Functional Limits Strength Upper Extremity Strength Assessment Bilaterally Impaired Lower Extremity Strength Assessment Bilaterally Impaired Comments Strength Comments BUE strength grossly 4/5 BLE strength grossly 4-/5 Coordination Assessment Gross Coordination Gross Coordination WNL Sensation Assessment Comments Sensation Comments Patient reported some tingling /sensation awareness in L foot , otherwise WNL. M6 PT-IP Treatment Start: 10/17/22 08:41 Freq: NEEDED Status: Active Protocol: Document 10/18/22 09:50 TS (Rec: 10/18/22 10:03 TS [id number]) Physical Therapy Treatment Education Education Provided Precautions,Post-Op Packet, Safety Other Treatments Other Treatment Performed Pt requires reinforcement of spinal precautions throughout session. Pt has tendency to twist during logroll and pivoting with FWW. She recalled 2/3 spinal precautions this session (no twisting). M7 PT-IP Assessment and Plan Start: 10/17/22 08:41 Freq: NEEDED Status: Active Protocol: Document 10/18/22 09:50 TS (Rec: 10/18/22 10:03 TS [id number]) PT Summary Assessment and Plan Potential Rehabilitation Potential Good Summary Impairments Pain,Strength,Balance,Bed Mobility,Transfers,Gait, Activity Tolerance Assessment Summary Pt continues to progress with her mobility. She remains Tiffanie for supine to sit and sit to supine due to decreased strength. She continues to need cues for logroll sequencing and consistent cueing for decreased twisting. She progressed her stairs to x7 on the platform step with FWW CGA, c/o increased pain in posterior L hip/back. PT recommends d/c home with spouse for assist and HHPT for education on spinal precautions and safety with transfers. Goals Bed Mobility Goal Independent Transfer Goal Independent,Front Wheeled Walker Gait Goal Independent,Front Wheel Walker Gait Distance 150 ft Other Goals Patient will be able to ascend /descend 12 stairs with B rails with SBA. Days to Meet Goals 7 Frequency of Treatment Frequency Of Treatment Twice a Day Treatment Plan Physical Therapy Treatment Plan Bed Mobility Training,Transfer Training,Gait Training, Therapeutic Exercise,Post Op Education,Discharge Planning, Hot or Cold Pack Precautions Lumbar Precautions Log Roll,No Twisting,Limit Bending,Lifting Restriction of 10 lbs,Gait Belt above Incisional Area Weight Bearing Status Weight Bearing Status Weight Bear as Tolerated Recommendations To Nursing Amount of Assist Needed 1 Person Assist Discharge Recommendations PT Discharge Recommendations Home with Assistance,Home Health Transportation Needs at Discharge Private Vehicle
--- NOTE | 2022-10-18 09:30 | PT.IPTN ---
Current Diagnoses Spinal stenosis, lumbar region without neurogenic claudication (10/16/22) Other mechanical complication of other internal orthopedic devices, implants and grafts, initial encounter (10/16/22) Arthrodesis status (10/16/22) Surgery Performed Operation Date: 10/16/22 09:15 Actual Procedures p L2-3 TLIF, L2-S1 PSF w. instrumentation(Not Applicable) - Paolo Thompson MD Physical Therapy Treatment Note M2 PT-IP Current Condition Start: 10/17/22 08:41 Freq: NEEDED Status: Active Protocol: Document 10/17/22 09:31 ES (Rec: 10/17/22 09:51 ES [id number]) Physical Therapy Current Condition Current Condition Evaluation Date 10/17/22 Treatment Diagnosis S/p TLIF Onset Date 10/16/22 M3 PT-IP Subjective Start: 10/17/22 08:41 Freq: NEEDED Status: Active Protocol: Document 10/18/22 09:50 TS (Rec: 10/18/22 10:03 TS [id number]) Subjective Physical Therapy Visit Type Type Treatment Note Visit Start Time 09:30 Visit Stop Time 09:46 Total Visit Minutes 16 Number of STEM CRUSHER Visits 2 Physical Therapy Visit Comments Patient Comments Pt found resting in bed, reports pain in Left posterior hip, agreeable to PT. Therapy Pain Assessment Pain When Pain Assessed At Rest Pain Present Pain Present Pain Reported Location Lower Back Intensity 8 Scale Used Numeric (0 - 10) Description Aching,Tender,With Movement Pain Management Techniques Apply Cold,Re-positioning, Timing of Activity with Medications M4 PT-IP Mobility and Gait Start: 10/17/22 08:41 Freq: NEEDED Status: Active Protocol: Document 10/18/22 09:50 TS (Rec: 10/18/22 10:03 TS [id number]) PT-Bed Mobility Assessment Rolling Type of Rolling Log Rolling,Bilateral Level of Assist Contact Guard Assistance,1 Person Assistance Supine to Sit Supine to Sit Minimal Assistance,1 Person Assistance,Bedrails Sit to Supine Sit to Supine Minimal Assistance Scooting Scooting to Edge of Bed Standby Assistance Scooting Up and Down in Bed Standby Assistance PT-Transfer Assessment Sit to and From Stand Sit to and from Stand Standby Assistance,Moderate Assistance Equipment Transfer Assistive Device Gait Belt,Front Wheeled Walker Orthotic/Prosthetic Devices or Brace: No Comments Mobility Comments Pt found resting in bed, agreeable to PT. Pt recalled 2 /3 spinal precautions at start of treatment(no twisting). Logroll CGA, requires cues for handrail assist and sequencing. Supine to sit Tiffanie for uprighting trunk. Sit to stand SBA with FWW, no LOB. She ambulated ~5 feet to platform step SBA with WBOS and external rotation. She performed platform steps w/FWW x7 CGA, provided cues for step sequencing and FWW management. Sit to supine provided cues for logroll and Tiffanie for LEs into bed. Pt was left in bed with chair alarm on, nursing notified. Gait Assessment Gait Gait Assistance Required: Standby Assistance Distance (Feet) 5 Assistive Devices Assistive Device Gait Belt,Front Wheeled Walker Orthotic/Prosthetic Devices or Brace: No Gait Deviations General Gait Pattern Antalgic,Ataxic,Decreased Stride Length,Decreased Feet Clearance,Wide Based Gait Factors Limiting Gait Function Factors Limiting Gait Function Decreased Strength,Pain,Poor Balance Comments Gait Comments See mobility comments. Stair Climbing Assessment Evaluation Level of Assist On Stairs Contact Guard Assistance,1 Person Assistance Devices Stair Climbing Assistive Devices Front Wheel Walker Technique/Endurance Stair Climbing Direction Ascend and Descend Stair Climbing Technique Step to Step Number of Steps Climbed 7 Comments Stair Climbing Comments See mobility comments. PT-Balance Assessment Sitting Balance and Reactions Static Sitting Balance Ability Fair Dynamic Sitting Balance Ability Fair Standing Balance and Reactions Static Standing Balance Ability Fair Dynamic Standing Balance Ability Fair Device Used FWW M5 PT-IP Objective Assessments Start: 10/17/22 08:41 Freq: NEEDED Status: Active Protocol: Document 10/17/22 09:31 ES (Rec: 10/17/22 09:51 ES [id number]) Orientation Orientation/Cognition Level of Alertness Lethargic Language Function Ability Word Finding Difficulties Safety Awareness Decreased Safety Awareness Memory Description No Deficits Noted Comments Patient had received pain meds prior to treatment and was intermittently drowsy during visit. Gross Range of Motion Upper Extremity ROM Assessment Within Functional Limits Lower Extremity ROM Assessment Within Functional Limits Strength Upper Extremity Strength Assessment Bilaterally Impaired Lower Extremity Strength Assessment Bilaterally Impaired Comments Strength Comments BUE strength grossly 4/5 BLE strength grossly 4-/5 Coordination Assessment Gross Coordination Gross Coordination WNL Sensation Assessment Comments Sensation Comments Patient reported some tingling /sensation awareness in L foot , otherwise WNL. M6 PT-IP Treatment Start: 10/17/22 08:41 Freq: NEEDED Status: Active Protocol: Document 10/18/22 09:50 TS (Rec: 10/18/22 10:03 TS [id number]) Physical Therapy Treatment Education Education Provided Precautions,Post-Op Packet, Safety Other Treatments Other Treatment Performed Pt requires reinforcement of spinal precautions throughout session. Pt has tendency to twist during logroll and pivoting with FWW. She recalled 2/3 spinal precautions this session (no twisting). M7 PT-IP Assessment and Plan Start: 10/17/22 08:41 Freq: NEEDED Status: Active Protocol: Document 10/18/22 09:50 TS (Rec: 10/18/22 10:03 TS [id number]) PT Summary Assessment and Plan Potential Rehabilitation Potential Good Summary Impairments Pain,Strength,Balance,Bed Mobility,Transfers,Gait, Activity Tolerance Assessment Summary Pt continues to progress with her mobility. She remains Tiffanie for supine to sit and sit to supine due to decreased strength. She continues to need cues for logroll sequencing and consistent cueing for decreased twisting. She progressed her stairs to x7 on the platform step with FWW CGA, c/o increased pain in posterior L hip/back. PT recommends d/c home with spouse for assist and HHPT for education on spinal precautions and safety with transfers. Goals Bed Mobility Goal Independent Transfer Goal Independent,Front Wheeled Walker Gait Goal Independent,Front Wheel Walker Gait Distance 150 ft Other Goals Patient will be able to ascend /descend 12 stairs with B rails with SBA. Days to Meet Goals 7 Frequency of Treatment Frequency Of Treatment Twice a Day Treatment Plan Physical Therapy Treatment Plan Bed Mobility Training,Transfer Training,Gait Training, Therapeutic Exercise,Post Op Education,Discharge Planning, Hot or Cold Pack Precautions Lumbar Precautions Log Roll,No Twisting,Limit Bending,Lifting Restriction of 10 lbs,Gait Belt above Incisional Area Weight Bearing Status Weight Bearing Status Weight Bear as Tolerated Recommendations To Nursing Amount of Assist Needed 1 Person Assist Discharge Recommendations PT Discharge Recommendations Home with Assistance Transportation Needs at Discharge Private Vehicle
--- NOTE | 2022-10-18 12:10 | CM.DPC ---
DCP: PT approached this author and conveyed their recommendation for HH for PT/OT due to concerns for patient safety. PT reported that they are concerned with her breaking precautions due to potential lack of cognitive awareness. DRUG AND ALCOHOL TREATMENT SPECIALIST team entered room and spoke with patient and spouse, Jermaine. CHARLEEN Burris reviewed PT/OT recommendations and HH qualifications with patient and spouse. Patient and spouse agreed it would be a good idea to initiate HH PT/OT if available. Patient spouse inquired about back brace and bone growth stimulator that operating team told them they would have upon d/c. CHARLEEN Burris asked RN to inquire about what is happening with that and to report back to family. RN team contacted Dr. Thompson to obtain the order for HH PT/OT/HH. GREER Fraser sent referral information to [facility], that does not have soon availability. DRUG AND ALCOHOL TREATMENT SPECIALIST spoke with spouse Jermaine while patient was in the bathroom and he is in verbal agreement to start services with the soonest available HH agency. GREER Fraser is inquiring about availability for additional agencies. GREER Fraser claims that [facility] has soonest avability and can open Sunday. DRUG AND ALCOHOL TREATMENT SPECIALIST met with patient as they were being wheeled out the door to give them brochure and to let them know about opening Sunday. Patient was appreciative. Plan: Home today with [facility] starting Sunday. CHARLEEN Bass
--- NOTE | 2022-10-18 12:14 | CM.DPNOTE ---
Called Fatou from [facility] who said they could accept patient for home health services starting Sunday, 10/20. I called [facility] to cancel services. Faxed them referral. Bria Lyon CM Assist.
--- NOTE | 2022-10-18 12:25 | PC.NURSE ---
Pt is dressed and ready for discharge home with Spouse. IV has been removed. Went over d/c instructions with Pt and Spouse-discussed d/c meds, time of last dose, reviewed stroke education, back precautions, s/s of infection, and follow up. Encouraged Pt to drink plenty of fluids to prevent constipation or dehydration. Reminded Pt that she is not to drive while on narcotics and until cleared by her
== END 2022-10-18 12:34 | disposition home health service (06) | DRG 454 ==
PROVIDERS: Admitting Provider Orthopaedic Surgery Orthopaedic Surgery of the Spine; PCP Internal Medicine; Referring Provider Orthopaedic Surgery Orthopaedic Surgery of the Spine; Visit Provider Orthopaedic Surgery Orthopaedic Surgery of the Spine
PROC: 0SG00AJ Fusion of Lumbar Vertebral Joint with Interbody Fusion Device, Posterior Approach, Anterior Column, Open Approach (ICD-10-PCS; principal; 2022-10-16 09:15)
DX: M48.062 Spinal stenosis, lumbar region with neurogenic claudication (principal); M96.0 Pseudarthrosis after fusion or arthrodesis; T84.038A Mechanical loosening of other internal prosthetic joint, initial encounter; M43.16 Spondylolisthesis, lumbar region; M96.1 Postlaminectomy syndrome, not elsewhere classified; E11.9 Type 2 diabetes mellitus without complications; I10 Essential (primary) hypertension; Z20.822 Contact with and (suspected) exposure to COVID-19; Z79.84 Long term (current) use of oral hypoglycemic drugs; Z98.1 Arthrodesis status; Z87.891 Personal history of nicotine dependence
CPT/HCPCS: 36415; 85014; 85018; 97116; 97161; 97165; 97530; C1776; C1713; C9290; J0690; J1100; J1170; J2250; J2405; J2704; J3010; J3490

== ENCOUNTER 2022-10-29 10:26 | Emergency (ER) | payer MEDICARE, SELFPAY ==
[2022-10-16 20:25] VITALS: BMI 19.1
[2022-10-29 10:30] VITALS: BP 140/89; PULSE 85; RESP 18; TEMP 36.7; O2SAT 98; BMI 18.8
--- NOTE | 2022-10-29 10:37 | DI.RAD.S_ITS ---
PROCEDURE: XR ABDOMEN MIN 2V INDICATIONS: constipated TECHNIQUE: 2 views of the abdomen were acquired. COMPARISON: [facility] [place], CR, XR LUMBAR SPINE 2 OR 3 VIEWS, 01/24/2022, 15:59. FINDINGS: Surgical changes and devices: Extensive postsurgical changes of the lumbar spine status post fusion and intra-articular displacement from L2 through S1. Right total hip arthroplasty also noted. There is diffuse degenerative changes of the spine with dextroscoliotic curvature. Mild degenerative changes of the left hip. Bowel: No pneumoperitoneum. Nonobstructive bowel gas pattern. Diffuse stool burden noted throughout the colon. Soft tissues: No masses; visualized solid organ contours appear normal in size. No suspicious abdominal calcifications. Multiple pelvic phleboliths. Bones: No suspicious bony abnormalities. IMPRESSION: Diffuse stool burden noted throughout the colon. No evidence of obstruction. Dictated by: Alexander Oconnell D.O. on 10/29/2022 at 10:26 Approved by: Alexander Oconnell D.O. on 10/29/2022 at 10:28
--- NOTE | 2022-10-29 11:58 | ED_ITS ---
HPI - Abdominal Pain General Chief Complaint: Abdominal Pain Stated Complaint: has not had a BM t-14, possible blockage Time Seen by Provider: 10/29/22 11:52 Source: patient Mode of arrival: Family Vehicle History of Present Illness HPI narrative: Patient is a 77-year-old female chronic back pain, diabetes, hyperlipidemia, spinal stenosis presents today after repair of loosening hardware on 10/17/2022. She was admitted for 2 nights discharged home. She presents today with no bowel movement for 2 weeks. Her abdomen is soft and nontender. She is passing gas. She has vomited but it seems to be associated with taking pills on an empty stomach. She says she is able to keep some pain medications down. She is on Dulcolax and possibly senna along with magnesium. She reports that she is ambulatory using a walker in fact she is doing really well postoperative. She has not had any fever or chills. She is eating and drinking but family concerned that she is not had a bowel movement. She does not have any pressure in her rectum or feel like she has to go. She tried an enema earlier today a few small stools came out. Related Data Home Medications Medication Instructions Recorded Confirmed ascorbic acid (vitamin C) 500 mg 1,000 mg PO DAILY 10/19/17 10/16/22 capsule cholecalciferol (vitamin D3) 75 50 mcg PO DAILY 10/19/17 10/16/22 mcg (3,000 unit) tablet levothyroxine 50 mcg tablet 50 mcg PO DAILY 10/19/17 10/16/22 (Synthroid) magnesium 250 mg tablet 400 mg PO DAILY 10/19/17 10/16/22 cyclobenzaprine 10 mg tablet See Rx Instructions .Route 01/18/21 10/16/22 .COMPLEX PRN Muscle Spasm diphenhydramine HCl 25 mg capsule 50 mg PO BEDTIME PRN Sinus 01/18/21 10/16/22 (Benadryl) congestion propranolol 40 mg tablet 20 mg PO DAILY PRN Palpitations 01/18/21 10/16/22 semaglutide 7 mg tablet (Rybelsus) 7 mg PO DAILY Diabetes 01/18/21 10/16/22 zolpidem 5 mg tablet 2.5 mg PO BEDTIME PRN Sleep 01/18/21 10/16/22 glimepiride 4 mg tablet 4 mg PO DAILY 07/31/22 10/16/22 Previous Rx's Medication Instructions Recorded acetaminophen 500 mg capsule 500 mg PO Q6HR PRN Pain, Mild 01/28/21 (1-3) #90 caps docusate sodium 100 mg capsule 100 mg PO BID PRN Constipation 01/28/21 (DOK) from the narcotic pain medications #30 caps celecoxib 200 mg capsule (Celebrex) 200 mg PO DAILY #90 caps 07/26/22 duloxetine 30 mg capsule,delayed 30 mg PO .Qhs #60 caps 07/31/22 release (Cymbalta) trazodone 100 mg tablet 100 mg PO BEDTIME PRN insomnia #90 07/31/22 tabs docusate sodium 100 mg capsule 100 mg PO BID PRN constipation #60 10/18/22 caps hydroxyzine pamoate 25 mg capsule 25 mg PO Q4HR PRN muscle spasm 10/18/22 #120 caps oxycodone 5 mg tablet 5 mg PO Q4-6H PRN pain, severe #60 10/18/22 tabs lactulose 20 gram/30 mL oral 20 g (30 mL) PO BID PRN 10/29/22 solution constipation #1,200 mL Allergies Allergy/AdvReac Type Severity Reaction Status Date / Time meperidine [MEPERIDINE] AdvReac Mild HYPERTENSIO Verified 10/29/22 10:35 N Review of Systems Review of Systems ROS Unobtainable: All systems reviewed & are unremarkable except as noted in HPI and below Patient History Medical History Anxiety Arthritis BCC (basal cell carcinoma) Carpal tunnel syndrome, bilateral Facet arthropathy, lumbar History of COVID-19 (~11/2021) Insomnia Sacral dysfunction Spinal stenosis Spondylolisthesis TIA (transient ischemic attack) (~2011) Trigger finger Ulnar tunnel syndrome Surgical History H/O cardiac radiofrequency ablation H/O hysterectomy for benign disease History of carpal tunnel surgery of right wrist History of heart surgery (~2011) History of laminectomy (~2003) History of lumbar spinal fusion (01/26/21) History of tonsillectomy and adenoidectomy History of total right hip arthroplasty (11/16/15) Hx of appendectomy Hx of bilateral cataract extraction (2015) Hx of laminectomy (~1984) Hx of removal of cyst (1984) Hx of shoulder surgery Family History Father Stroke Social History household members: spouse Smoking Status: Former smoker alcohol intake: current Smoking Status: Former smoker tobacco type: cigarettes alcohol intake frequency: 0-2 drinks per day Substance Use Type: does not use Exam Initial Vital Signs Initial Vital Signs: Vital Signs Temperature 98.1 F 10/29/22 10:30 Pulse Rate 85 10/29/22 10:30 Respiratory Rate 18 10/29/22 10:30 Blood Pressure 140/89 10/29/22 10:30 Pulse Oximetry 98 10/29/22 10:30 Oxygen Delivery Method Room Air 10/29/22 10:30 GENERAL: Alert pleasant well-appearing 77-year-old female HEENT: Head atraumatic,EOMI, pupils reactive, face symmetric, [moist] mucous membranes CARDIOVASCULAR: Regular rate and rhythm without murmurs, rubs or gallops. RESPIRATORY: Breath sounds equal bilaterally, no wheezes rales or rhonchi. ABDOMEN: Soft, nontender. Normoactive bowel sounds all 4 quadrants. No guarding or rebound. BACK: wearing brace EXTREMITIES: Normal range of motion, no clubbing or edema. Neurovascularly intact NEUROLOGICAL: Alert and oriented x4 SKIN: Warm, dry, no laceration, no petechiae, no rashes or lesions. Course Orders Ordered: ED Orders 10/29/22 10:37 XR abdomen min 2V Stat Vital Signs Vital signs: Vital Signs - 8 hr 10/29/22 12:06 10/29/22 12:06 10/29/22 12:30 Pulse Rate 77 71 Blood Pressure 184/79 H Pulse Oximetry 98 95 MDM - Abdominal Pain Imaging Data Abdominal x-ray: Radiologist's Impression: PROCEDURE:? XR ABDOMEN MIN 2V ? INDICATIONS:? constipated ? TECHNIQUE:? 2 views of the abdomen were acquired.? ? COMPARISON:? [facility] [place], CR, XR LUMBAR SPINE 2 OR 3 VIEWS, 01/24/2022, 15:59. ? FINDINGS:? Surgical changes and devices:? Extensive postsurgical changes of the lumbar spine status post fusion and intra-articular displacement from L2 through S1.? Right total hip arthroplasty also noted.? There is diffuse degenerative changes of the spine with dextroscoliotic curvature.? Mild degenerative changes of the left hip. ? Bowel:? No pneumoperitoneum.? Nonobstructive bowel gas pattern.? Diffuse stool burden noted throughout the colon. ? Soft tissues:? No masses; visualized solid organ contours appear normal in size.? No suspicious abdominal calcifications.? Multiple pelvic phleboliths. ? Bones:? No suspicious bony abnormalities.? ? IMPRESSION:? ? Diffuse stool burden noted throughout the colon.? No evidence of obstruction. ? ? Dictated by: Alexander Oconnell D.O. on 10/29/2022 at 10:26 ? ? MDM Narrative Medical decision making narrative: Patient is a 77-year-old female history of recent surgery on opiates presenting today with constipation and no bowel movement for 2 weeks. Abdomen is soft nontender x-ray confirms diffuse stool burden without obstruction. She has some vomiting it is some mornings when she takes pills on an empty stomach she vomits about 10 minutes later. She is on some [id number] medication and tried an enema today without any relief. At this time history of surgery and opiates with x-ray confirming large amount of stool seems like constipation. I think reasonable to start on other laxative medications I am return as needed. Abdomen is very soft without peritoneal signs no acute abdomen present. Discuss this with both patient and all questions have been answered. Discharge Plan Departure Patient Disposition: Home Clinical Impression: Constipation Instructions: DI for Constipation Activity Restrictions/Additional Instructions: *You have been diagnosed with constipation *What to do: At this time increase fluid intake, increase activity. May try prune juice and high-fiber diet *Continue to take medications as directed Dulcolax twice a day as directed MiraLax once daily as directed Senokot 2 tablets as needed If all else fails may take lactulose as directed up to 4 times daily until you have a bowel movement *Follow up with your primary care provider in 2-3 days or call [phone] Follow-up with Dr. Thompson scheduled *Return to ER if you should have increasing abdominal pain vomiting fever or any new, worsening or concerning symptoms Prescriptions: New lactulose 20 gram/30 mL solution 20 g PO BID PRN (Reason: constipation) Qty: 1200 0RF No Action celecoxib [Celebrex] 200 mg capsule 200 mg PO DAILY Qty: 90 2RF zolpidem 5 mg Tablet 2.5 mg PO BEDTIME PRN (Reason: Sleep) Rybelsus 7 mg Tablet 7 mg PO DAILY cyclobenzaprine 10 mg tablet See Rx Instructions .ROUTE .COMPLEX PRN (Reason: Muscle Spasm) Rx Instructions: TAKE ONE TABLET BY MOUTH THREE TIMES DAILY NEEDED FOR MUSCLE SPASM propranolol 40 mg Tablet 20 mg PO DAILY PRN (Reason: Palpitations) diphenhydramine HCl [Benadryl] 25 mg Capsule 50 mg PO BEDTIME PRN (Reason: Sinus congestion) acetaminophen 500 mg capsule 500 mg PO Q6HR MDD Max 6 tabs per day PRN (Reason: Pain, Mild (1-3)) Qty: 90 0RF docusate sodium [DOK] 100 mg Capsule 100 mg PO BID PRN (Reason: Constipation from the narcotic pain medications) Qty: 30 0RF docusate sodium 100 mg Capsule 100 mg PO BID PRN (Reason: constipation) Qty: 60 1RF hydroxyzine pamoate 25 mg Capsule 25 mg PO Q4HR PRN (Reason: muscle spasm) Qty: 120 0RF oxycodone 5 mg tablet 5 mg PO Q4-6H PRN (Reason: pain, severe) Qty: 60 0RF levothyroxine [Synthroid] 50 mcg tablet 50 mcg PO DAILY ascorbic acid (vitamin C) 500 mg capsule 1,000 mg PO DAILY cholecalciferol (vitamin D3) 3,000 unit tablet 50 mcg PO DAILY magnesium 250 mg tablet 400 mg PO DAILY glimepiride 4 mg tablet 4 mg PO DAILY trazodone 100 mg tablet 100 mg PO BEDTIME PRN (Reason: insomnia) Qty: 90 2RF duloxetine [Cymbalta] 30 mg capsule,delayed release(DR/EC) 30 mg PO .Qhs MDD 2 Qty: 60 3RF Referrals: Marietta Savage MD [Primary Care Provider] - Stand Alone Forms: Patient Portal/API
[2022-10-29 12:06] VITALS: BP 184/79; PULSE 77; O2SAT 98
[2022-10-29 12:30] VITALS: PULSE 71; O2SAT 95
== END 2022-10-29 12:48 | disposition home or self-care (01) ==
PROVIDERS: Emergency Provider Emergency Medicine; PCP Internal Medicine
DX: K59.00 Constipation, unspecified (principal)
CPT/HCPCS: 74019; 99283

== ENCOUNTER 2023-01-02 15:06 | Emergency (ER) | payer MEDICARE, SELFPAY ==
[2022-10-16 20:25] VITALS: BMI 19.1
[2023-01-02 15:19] VITALS: BP 146/67; PULSE 83; RESP 18; TEMP 36.9; O2SAT 98; BMI 18.0
--- NOTE | 2023-01-02 15:25 | DI.RAD.S_ITS ---
PROCEDURE: XR FOOT LT MIN 3V INDICATIONS: possible glass/something in foot TECHNIQUE: 3 views of the foot were acquired. COMPARISON: None. FINDINGS: Bones: No fractures or dislocations. No suspicious bony lesions. Soft tissues: No tibiotalar joint effusion. Achilles tendon appears normal. Small 2 x 4 millimeter radiodense foreign body in the plantar soft tissues of the foot adjacent to the 4th metatarsal head. IMPRESSION: 2 x 4 millimeter radiodense foreign body in the plantar soft tissues. Dictated by: Nikole Luciano MD, PhD on 01/02/2023 at 16:27 Approved by: Nikole Luciano MD, PhD on 01/02/2023 at 16:28
[2023-01-02] MEDS: TET,DIPH,PERTUSS(ACELL),VAC/PF 0.5 ML SYRINGE IM (18:13)
--- NOTE | 2023-01-02 18:23 | ED_ITS ---
HPI - Skin/Abscess/Foreign Bdy <Spencer Anne PA-C - Last Filed: 01/02/23 18:27> General Chief complaint: Skin/Abscess/Foreign Body Stated complaint: Glass in L foot Time Seen by Provider: 01/02/23 17:55 Source: patient Mode of arrival: Wheelchair Limitations: no limitations History of Present Illness HPI narrative: 77-year-old female presents to the ED status post a left foot injury sustained earlier today. Patient believes that she stepped on a piece of glass from a broken wine glass and suspects that she has a piece retained in her foot. Patient denies numbness, tingling, weakness. Bleeding controlled with pressure. Related Data Home Medications Medication Instructions Recorded Confirmed ascorbic acid (vitamin C) 500 mg 1,000 mg PO DAILY 10/19/17 10/16/22 capsule cholecalciferol (vitamin D3) 75 50 mcg PO DAILY 10/19/17 10/16/22 mcg (3,000 unit) tablet levothyroxine 50 mcg tablet 50 mcg PO DAILY 10/19/17 10/16/22 (Synthroid) magnesium 250 mg tablet 400 mg PO DAILY 10/19/17 10/16/22 cyclobenzaprine 10 mg tablet See Rx Instructions .Route 01/18/21 10/16/22 .COMPLEX PRN Muscle Spasm diphenhydramine HCl 25 mg capsule 50 mg PO BEDTIME PRN Sinus 01/18/21 10/16/22 (Benadryl) congestion propranolol 40 mg tablet 20 mg PO DAILY PRN Palpitations 01/18/21 10/16/22 semaglutide 7 mg tablet (Rybelsus) 7 mg PO DAILY Diabetes 01/18/21 10/16/22 zolpidem 5 mg tablet 2.5 mg PO BEDTIME PRN Sleep 01/18/21 10/16/22 glimepiride 4 mg tablet 4 mg PO DAILY 07/31/22 10/16/22 Previous Rx's Medication Instructions Recorded acetaminophen 500 mg capsule 500 mg PO Q6HR PRN Pain, Mild 01/28/21 (1-3) #90 caps docusate sodium 100 mg capsule 100 mg PO BID PRN Constipation 01/28/21 (DOK) from the narcotic pain medications #30 caps celecoxib 200 mg capsule (Celebrex) 200 mg PO DAILY #90 caps 07/26/22 duloxetine 30 mg capsule,delayed 30 mg PO .Qhs #60 caps 07/31/22 release (Cymbalta) trazodone 100 mg tablet 100 mg PO BEDTIME PRN insomnia #90 07/31/22 tabs docusate sodium 100 mg capsule 100 mg PO BID PRN constipation #60 10/18/22 caps hydroxyzine pamoate 25 mg capsule 25 mg PO Q4HR PRN muscle spasm 10/18/22 #120 caps oxycodone 5 mg tablet 5 mg PO Q4-6H PRN pain, severe #60 10/18/22 tabs lactulose 20 gram/30 mL oral 20 g (30 mL) PO BID PRN 10/29/22 solution constipation #1,200 mL Allergies Allergy/AdvReac Type Severity Reaction Status Date / Time meperidine [MEPERIDINE] AdvReac Mild HYPERTENSIO Verified 10/29/22 10:35 N Review of Systems <Spencer Anne PA-C - Last Filed: 01/02/23 18:27> Review of Systems ROS Unobtainable: All systems reviewed & are unremarkable except as noted in HPI and below Constitutional Constitutional: Denies chills, Denies fatigue, Denies fever(s), Denies frequent falls, Denies lethargy and Denies weakness Eyes Eyes: Denies change in vision, Denies eye discharge, Denies irritation and Denies loss of vision ENT Ears, Nose, Mouth, and Throat: Denies change in voice, Denies dizziness, Denies neck pain, Denies sore throat and Denies throat swelling Cardiovascular Cardiovascular: Denies chest pain, Denies irregular heart rhythm, Denies lightheadedness, Denies palpitations, Denies dyspnea, Denies dyspnea on exertion and Denies orthopnea Respiratory Respiratory: Denies cough, Denies dyspnea, Denies dyspnea on exertion and Denies wheezing Gastrointestinal Gastrointestinal: Denies abdominal pain, Denies change in bowel habits, Denies diarrhea, Denies nausea and Denies vomiting Genitourinary Genitourinary: Denies hematuria, Denies flank pain, Denies urinary incontinence and Denies urinary urgency Musculoskeletal Musculoskeletal: Denies back pain, Denies muscle weakness, Denies neck pain, Denies numbness and Denies tingling Integumentary/Breasts Skin/Breast: Denies pruritus, Denies erythema, Denies rash and Reports wounds Neurologic Neurologic: Denies behavioral changes, Denies confusion, Denies dizziness, Denies frequent falls, Denies loss of vision, Denies numbness, Denies tingling and Denies weakness Psychiatric Psychiatric: Denies anxiety, Denies behavioral changes, Denies confusion, Denies depression, Denies homicidal ideation and Denies suicidal ideation Endocrine Endocrine: Denies fatigue, Denies flushing and Denies palpitations Hematologic/Lymphatic Hematologic/Lymphatic: Denies easy bruising Allergic/Immunologic Allergic/Immunologic: Denies urticaria, Denies throat swelling and Denies wheezing Patient History <Spencer Anne PA-C - Last Filed: 01/02/23 18:27> Medical History Anxiety Arthritis BCC (basal cell carcinoma) Carpal tunnel syndrome, bilateral Facet arthropathy, lumbar History of COVID-19 (~11/2021) Insomnia Sacral dysfunction Spinal stenosis Spondylolisthesis TIA (transient ischemic attack) (~2011) Trigger finger Ulnar tunnel syndrome Surgical History H/O cardiac radiofrequency ablation H/O hysterectomy for benign disease History of carpal tunnel surgery of right wrist History of heart surgery (~2011) History of laminectomy (~2003) History of lumbar spinal fusion (01/26/21) History of tonsillectomy and adenoidectomy History of total right hip arthroplasty (11/16/15) Hx of appendectomy Hx of bilateral cataract extraction (2015) Hx of laminectomy (~1984) Hx of removal of cyst (1984) Hx of shoulder surgery Family History Father Stroke Social History household members: spouse Smoking Status: Former smoker alcohol intake: current Smoking Status: Former smoker tobacco type: cigarettes alcohol intake frequency: 0-2 drinks per day Substance Use Type: does not use Exam <Spencer Anne PA-C - Last Filed: 01/02/23 18:27> Narrative Exam Narrative: Const General:?cooperative, healthy appearing and comfortable [facility] Head:?normal to inspection Ears:?hearing grossly normal bilaterally Nose:?external nose normal Face and sinus:?normal facial exam and sinuses nontender Mouth:?oral mucosae normal Throat:?posterior oropharynx normal Eyes General:?appearance normal, both eyes and all related structures Neck Neck:?normal visual inspection and no lymphadenopathy noted Resp Effort & Inspection:?normal respiratory effort Auscultation:?clear to auscultation bilaterally Cardio Rate:?regular rate Rhythm:?regular rhythm Integumentary There is a palpable small piece of glass in the sole of the left foot, consistent with x-ray finding. Bleeding is controlled with pressure. Strength and sensation is intact. There is full range of motion. Patient is neurovascularly intact. Neuro General:?patient alert, patient awake and patient oriented x3 Initial Vital Signs Initial Vital Signs: Vital Signs Temperature 98.4 F 01/02/23 15:19 Pulse Rate 83 01/02/23 15:19 Respiratory Rate 18 01/02/23 15:19 Blood Pressure 146/67 H 01/02/23 15:19 Pulse Oximetry 98 01/02/23 15:19 Oxygen Delivery Method Room Air 01/02/23 15:19 <Babita Golden DO - Last Filed: 01/04/23 08:48> Initial Vital Signs Initial Vital Signs: Vital Signs Temperature 98.4 F 01/02/23 15:19 Pulse Rate 83 01/02/23 15:19 Respiratory Rate 18 01/02/23 15:19 Blood Pressure 146/67 H 01/02/23 15:19 Pulse Oximetry 98 01/02/23 15:19 Oxygen Delivery Method Room Air 01/02/23 15:19 Procedures <ASHLEY May Last Filed: 01/02/23 18:27> Foreign Body OTHER Foreign Body Removal Site: left and foot Description of foreign body: other (Piece of glass) Sedation/Analgesia: none Technique: manual removal, removal with forceps, incision made to facilitate removal and irrigation Confirmed by:: direct visualization, radiograph, patient report and palpation Complications: none Post-procedure exam: awake, alert, normal BP, normal HR and normal O2 sat Neurovascular: normal distal pulse, normal capillary fill, distal light touch sensation intact, distal motor function normal, no signs of compartment syndrome and no change from pre-procedure Course <ASHLEY May Last Filed: 01/02/23 18:27> Orders Ordered: Discontinued Medications Diphtheria/Tetanus/Acell Pertussis (Tet,Diph,Pertuss(Acell),Vac/Pf 0.5 Ml Syringe) 0.5 ml IM .ONCE ONE Stop: 01/02/23 18:05 Last Admin: 01/02/23 18:13 Dose: 0.5 ml Documented By: AMV Vital Signs Vital signs: Vital Signs - 8 hr 01/02/23 15:19 Temperature 98.4 F Pulse Rate 83 Respiratory Rate 18 Blood Pressure 146/67 H Pulse Oximetry 98 Oxygen Delivery Method Room Air <Babita Golden DO - Last Filed: 01/04/23 08:48> Orders Ordered: Discontinued Medications Diphtheria/Tetanus/Acell Pertussis (Tet,Diph,Pertuss(Acell),Vac/Pf 0.5 Ml Syringe) 0.5 ml IM .ONCE ONE Stop: 01/02/23 18:05 Last Admin: 01/02/23 18:13 Dose: 0.5 ml Documented By: AMV Vital Signs Vital signs: Vital Signs - 8 hr 01/02/23 15:19 Temperature 98.4 F Pulse Rate 83 Respiratory Rate 18 Blood Pressure 146/67 H Pulse Oximetry 98 Oxygen Delivery Method Room Air MDM - Skin/Abscess/Foreign Bdy <Spencer Anne PA-C - Last Filed: 01/02/23 18:27> MDM Narrative Medical decision making narrative: 77-year-old female presents to the ED status post a left foot injury sustained earlier today. X-ray shows a 2 mm x 4 mm piece of glass retained in the sole of the left foot. Glass piece was removed after a small incision was made. Patient tolerated the procedure well. Patient's tetanus was updated today. Wound care instructions and signs of infection discussed with patient. ED return precautions discussed with patient. Patient verbalized understanding. Medical records reviewed: Yes Discharge Plan Departure Patient Disposition: Home Clinical Impression: Acute foreign body of foot Instructions: DI for Removal of Foreign Body From Skin Activity Restrictions/Additional Instructions: You were evaluated in the ED today for a foot injury sustained prior to arrival. Your x-ray showed a small piece of glass embedded in the sole of your foot. The piece of glass was removed, your tetanus was updated today which is good for the next 10 years. Please keep the wound clean and dry for the next 24 hours after which you may wash gently with soap and water and dry before putting on a dressing. Watch for signs of infections including worsening redness, pain, swelling, warmth, discharge. Please return to the ED or see your PCP or an urgent care clinic if you note any signs of infection. Prescriptions: No Action celecoxib [Celebrex] 200 mg capsule 200 mg PO DAILY Qty: 90 2RF zolpidem 5 mg Tablet 2.5 mg PO BEDTIME PRN (Reason: Sleep) Rybelsus 7 mg Tablet 7 mg PO DAILY cyclobenzaprine 10 mg tablet See Rx Instructions .ROUTE .COMPLEX PRN (Reason: Muscle Spasm) Rx Instructions: TAKE ONE TABLET BY MOUTH THREE TIMES DAILY NEEDED FOR MUSCLE SPASM propranolol 40 mg Tablet 20 mg PO DAILY PRN (Reason: Palpitations) diphenhydramine HCl [Benadryl] 25 mg Capsule 50 mg PO BEDTIME PRN (Reason: Sinus congestion) acetaminophen 500 mg capsule 500 mg PO Q6HR MDD Max 6 tabs per day PRN (Reason: Pain, Mild (1-3)) Qty: 90 0RF docusate sodium [DOK] 100 mg Capsule 100 mg PO BID PRN (Reason: Constipation from the narcotic pain medications) Qty: 30 0RF docusate sodium 100 mg Capsule 100 mg PO BID PRN (Reason: constipation) Qty: 60 1RF hydroxyzine pamoate 25 mg Capsule 25 mg PO Q4HR PRN (Reason: muscle spasm) Qty: 120 0RF oxycodone 5 mg tablet 5 mg PO Q4-6H PRN (Reason: pain, severe) Qty: 60 0RF lactulose 20 gram/30 mL solution 20 g PO BID PRN (Reason: constipation) Qty: 1200 0RF levothyroxine [Synthroid] 50 mcg tablet 50 mcg PO DAILY ascorbic acid (vitamin C) 500 mg capsule 1,000 mg PO DAILY cholecalciferol (vitamin D3) 3,000 unit tablet 50 mcg PO DAILY magnesium 250 mg tablet 400 mg PO DAILY glimepiride 4 mg tablet 4 mg PO DAILY trazodone 100 mg tablet 100 mg PO BEDTIME PRN (Reason: insomnia) Qty: 90 2RF duloxetine [Cymbalta] 30 mg capsule,delayed release(DR/EC) 30 mg PO .Qhs MDD 2 Qty: 60 3RF Referrals: Marietta Savage MD [Primary Care Provider] - Stand Alone Forms: Patient Portal/API <Babita Golden DO - Last Filed: 01/04/23 08:48> Cosign ED Attending Cosignature Attestation: I was immediately available in the department for consultation. Documentation has been reviewed.
[2023-01-02 18:33] VITALS: BP 153/71; PULSE 76; RESP 20; TEMP 36.4; O2SAT 98
== END 2023-01-02 18:34 | disposition home or self-care (01) ==
PROVIDERS: Emergency Provider Student in an Organized Health Care Education/Training Program; PCP Internal Medicine
DX: S91.322A Laceration with foreign body, left foot, initial encounter (principal); W25.XXXA Contact with sharp glass, initial encounter; W45.8XXA Other foreign body or object entering through skin, initial encounter; Z23 Encounter for immunization
CPT/HCPCS: 10120; 73630; 90471; 99283; 90715

== ENCOUNTER → 2023-03-09 12:02 | Outpatient (CLI) | payer MEDICARE, SELFPAY ==
[2022-10-16 20:25] VITALS: BMI 19.1
--- NOTE | 2023-03-09 12:02 | DI.RAD.S_ITS ---
Bone Density Report Name: RUEL GARCIA Age: 78 Sex: Female Ethnicity: White Date of : 1945 Indication: postmenopausal osteoporosis; prior fracture; Referring Provider: NICOLASA HOSKINS Study: Bone densitometry was performed. Exam Date: March 09, 2023 Accession number: [id number] Bone Density: Region BMD T-score Z-score Classification Femoral Neck (Left) 0.456 -3.5 -1.2 Osteoporosis Total Hip (Left) 0.600 -2.8 -0.7 Osteoporosis Total Forearm (Left) 0.345 -4.3 -1.3 Osteoporosis 1/3 Forearm (Left) 0.425 -4.5 -1.4 Osteoporosis UD Forearm (Left) 0.267 -3.0 -0.8 Osteoporosis World Health Organization criteria for BMD impression classify patients as: Normal (T-score at or above -1.0), Osteopenia (T-score between -1.0 and -2.5), or Osteoporosis (T-score at or below -2.5). 10-year Fracture Risk: FRAX not reported because: Some T-score for Spine Total or Hip Total or Femoral Neck at or below -2.5 Prior hip or vertebral fracture Previous Exams: -- Region Exam Age BMD T-score BMD Change BMD Change Date g/cm2 vs Baseline vs Previous -- Total Hip(Left) 03/09/2023 78 0.600 -2.8 -0.113 (-15.8%)# 0.025 (4.3%) 03/20/2022 77 0.576 -3.0 -0.137 (-19.2%)# -0.053 (-8.4%)# 07/29/2019 74 0.628 -2.6 -0.085 (-11.9%)* -0.008 (-1.2%) 03/02/2017 72 0.636 -2.5 -0.077 (-10.8%)* -0.081 (-11.3%)* 04/13/2006 61 0.716 -1.8 0.004 (0.5%) 0.004 (0.5%) 12/06/2004 59 0.713 -1.9 1/3 Forearm(Left) 03/09/2023 78 0.425 -4.5 -0.012 (-2.7%) -0.012 (-2.7%) 03/20/2022 77 0.436 -4.3 -- *Denotes significance at 95% confidence level, LSC for Total Hip = 0.027 g/cm2, LSC for 1/3 Forearm = 0.023 g/cm2 # Denotes dissimilar scan types or analysis methods Impression: The patient has established osteoporosis, based on the Left Femoral Neck T-score and the existence of a prior fracture. The patient has risk factors, including: previous fracture. No significant bone loss was observed. Discussion: HIGH RISK OF FRACTURE. BONE DENSITY IS UNDESIRABLY LOW AT ONE OR MORE SKELETAL SITES, CONSISTENT WITH POSTMENOPAUSAL OSTEOPOROSIS. This patient's lowest T-score, in a patient who has previously fractured, meets the World Health Organization's (WHO) criteria for severe osteoporosis. In untreated patients, the risk of osteoporotic fracture increases approximately two-fold for each 1.0 SD decrease in T-score. Low bone density is not the only risk factor for fracture; also consider factors such as patient's age, frailty or poor health, risk of falling, risk of injury, previous osteoporotic fracture, family history of osteoporosis, cigarette smoking, low body weight, etc. Not everyone with low bone mineral density has osteoporosis; osteomalacia and other metabolic bone disorders should also be considered. Patients who have osteoporosis should be evaluated for specific diseases and conditions (secondary causes) that may cause or contribute to bone loss. The [place] Association [employer] Endocrinologists (AACE) and National Osteoporosis Foundation (NOF) recommend pharmacologic intervention for all postmenopausal women with a previous hip or vertebral fracture and a T-score in this range. The patient should follow a healthful lifestyle (good nutrition with adequate calcium and vitamin D, and appropriate weight-bearing exercise). Follow-Up: Consider a repeat BMD and Vertebral Fracture Assessment (VFA) exam in 2 years or sooner if medically necessary, to reassess this patient's status. Reported by: NETTIE CROW M.D. on 03/09/2023 1:05:00 PM.
== END ==
PROVIDERS: PCP Internal Medicine; Referring Provider Internal Medicine; Visit Provider Internal Medicine
DX: M81.0 Age-related osteoporosis without current pathological fracture (principal)
CPT/HCPCS: 77080; 77081

== ENCOUNTER → 2023-06-21 10:09 | Outpatient (CLI) | payer MEDICARE, SELFPAY ==
[2022-10-16 20:25] VITALS: BMI 19.1
--- NOTE | 2023-06-21 | DI.MG.S_ITS ---
BILATERAL DIGITAL SCREENING MAMMOGRAM 3D/2D WITH CAD: 06/21/2023 CLINICAL: Routine screening. Comparison is made to exams dated: 03/20/2022 mammogram, 09/28/2020 mammogram, and 05/04/2018 mammogram - [facility]. Both breasts are heterogeneously dense, which may obscure small masses (category c / 51-75% glandular tissue). Current study was also evaluated with a Computer Aided Detection (CAD) system. There are benign vascular calcifications in both breasts. No significant masses, calcifications, or other findings are seen in either breast. There has been no significant interval change. IMPRESSION: BENIGN There is no mammographic evidence of malignancy. A 1 year screening mammogram is recommended. Based on the Tyrer Cuzick model (a risk assessment model) the patient's lifetime risk is 1.9% and her 10 year risk is 0.0%. According to the ACR, ACS, and NCCN guidelines, an annual breast MRI exam along with mammogram is recommended if the patient's lifetime risk is 20% or greater. This exam was interpreted at Station ID: [id number]. NOTE: For mammograms, a report in lay terms will be sent to the patient. Approximately 15% of breast malignancies will not be visualized mammographically. In the management of a palpable breast mass, a negative mammogram must not discourage biopsy of a clinically suspicious lesion. Electronically Signed By: Gregory guthrie/venita:06/21/2023 12:50:54 letter sent: Normal Exam ACR BI-RADS Category 2: Benign Finding(s) 3342F
== END ==
PROVIDERS: PCP Internal Medicine; Referring Provider Internal Medicine; Visit Provider Internal Medicine
DX: Z12.31 Encounter for screening mammogram for malignant neoplasm of breast (principal); R92.333 Mammographic heterogeneous density, bilateral breasts
CPT/HCPCS: 77063; 77067

== ENCOUNTER → 2023-10-02 12:46 | Outpatient (CLI) | payer MEDICARE, SELFPAY ==
[2022-10-16 20:25] VITALS: BMI 19.1
[2023-10-02 13:32] LABS: Hemoglobin A1C% w Est Avg Glu 6.2 % (4.0-6.0)
[2023-10-02 13:41] LABS: BUN Creatinine Ratio 34.8 (6-22); Blood Urea Nitrogen 24 mg/dL (7-17); Calcium 10.7 mg/dL (8.4-10.2); Carbon Dioxide 30 mmol/L (22-32); Chloride 104 mmol/L (98-107); Estimated Glomerular Filt Rate > 60 mL/min (>60); Glucose 75 mg/dL (80-110); HEMOLYSIS 24 (0-50); Potassium 4.2 mmol/L (3.4-5.1); Sodium 138 mmol/L (137-145)
[2023-10-02 15:16] LABS: Vitamin D 25 Hydroxy (D3) 56.3 ng/mL (30.0-100.0)
== END ==
PROVIDERS: PCP Internal Medicine; Referring Provider Internal Medicine Endocrinology, Diabetes & Metabolism; Visit Provider Internal Medicine Endocrinology, Diabetes & Metabolism
DX: M81.0 Age-related osteoporosis without current pathological fracture (principal); E11.9 Type 2 diabetes mellitus without complications
CPT/HCPCS: 36415; 80048; 82306; 83036

== ENCOUNTER 2023-11-06 13:04 | Outpatient (CLI) | payer MEDICARE, SELFPAY ==
[2022-10-16 20:25] VITALS: BMI 19.1
[2023-11-06] VITALS (8 sets, daily range): BP systolic 151–206; BP diastolic 70–95; PULSE 70–84; RESP 13–21; TEMP 36.3; O2SAT 98–100
--- NOTE | 2023-11-06 14:00 | DI.RAD.S_ITS ---
PROCEDURE: PAIN SI JOINT INJECTION STACIA INDICATIONS: Bilateral Si joint injections COMPARISON: [facility], , PAIN SI JOINT INJECTION STACIA, 04/18/2022, 13:08. FINDINGS: Fluoroscopic spot filming was performed to verify placement of spinal needles at the bilateral sacroiliac joints , as labeled on the films. Appropriate location(s) of the needle tip(s) was confirmed by injection of iodinated contrast. IMPRESSION: Fluoro guidance was provided intraoperatively for bilateral sacroiliac joint injections performed by ordering physician. Dictated by: Vipin Epps M.D. on 11/07/2023 at 9:39 Approved by: Vipin Epps M.D. on 11/07/2023 at 9:39
[2023-11-06] MEDS: MIDAZOLAM 2 MG/2 ML VIAL IV (14:35)
[2023-11-06] MEDS: BETAMETHASONE 30 MG/5 ML MDV 12 MG INJ (14:40)
[2023-11-06] MEDS: iopamidoL 15 ML VIAL 3 ML INJ (14:40)
[2023-11-06] MEDS: BUPIVACAINE 0.5% (PF) 10 ML VIAL 5 ML INJ (14:40)
--- NOTE | 2023-11-06 14:52 | PM.PROC.IR.1 ---
Date/Time/Diagnoses Date of procedure: 11/06/23 Time of procedure: 14:52 Pre-procedure diagnosis: Sacroiliac joint pain/DJD Post-procedure diagnosis: same Procedure Notes Procedure: Fluoroscopic guided contrast controlled bilateral sacroiliac joint injection Indications: Shanice is referred by Dr. Savage for treatment of bilateral sacroiliac joint DJD Physician: Carlo Arriola Total Fluoroscopy time (seconds): 13 Total sedation minutes: 14 Complications: none Procedure in detail & Post-procedure care: Description of procedure Fluoroscopic guided, contrast controlled bilateral sacroiliac joint injection Following review of allergies and review of potential side effects and complications, including, but not necessarily limited to, infection, allergic reaction, local tissue breakdown, temporary as well as permanent nerve injury, paralysis, stroke and possible , the patient indicated that they understood and agreed to proceed. An informed consent was signed by the patient, witnessed by a nurse, and placed in the patient's chart. Additionally, other treatment options including modalities, medications, and physical therapy were reviewed with the patient. After review of previous anaesthesic history and IV conscious sedation the patient was deemed safe to proceed with today?s procedure with IV conscious sedation as ASA class II designation. Safety time-out was performed to confirm patient ID, procedure to be performed and site of procedure. IV sedation was accomplished with a combination of 2mg Versed were administered by the RN after DO order, titrated to patient comfort during the course of the procedure while the patient remained responsive to all verbal commands In the prone position following sterile prep and drape of the pelvic region, the hyper lucency on in the inferior aspect of the sacroiliac joint was identified fluoroscopically the skin was anesthetized be a 25 gauge 1.5 inch needle with approximately 2cc of 1% lidocaine solution. At this point, a 22 gauge 3 in spinal needle was atraumatically introduced and advanced under fluoroscopic guidance into the inferior aspect of the right sacroiliac joint. Following negative aspiration, approximately 0.3cc of [id number]-300 was injected confirming intra-articular placement without vascular uptake. Radiographic data, including multiple fluoroscopic views of the pelvis, reveals a spinal needle in the sacroiliac joint hyper lucent zone. Subsequent view show flow contrast tear superiorly and inferiorly within the joint capsule without vascular intrathecal uptake. At this point a total of 1cc of 0.5% Marcaine was combined with 1cc of 6mg of betamethasone was injected without incident. Attention was then refocused the left sacroiliac joint where the procedure was replicated. The procedure tolerated the procedure well without signs or symptoms of complications prior to transfer to the recovery area continued monitoring without incident. The patient was then transferred to the recovery area with a bur observed for an appropriate time after the injection. The patient reverted a vas score of 7 prior to the procedure and post-procedure vas of 1. Postop instructions The patient was provided with a pain like to continue to record the patient's response to the target specific procedure prior to the patient's follow-up visit with the referring physician. Additionally, specific post injection care instructions and a contact number to our office were provided if concerns arise regarding the possible complications associated with procedure are suspected.
== END 2023-11-06 15:10 | disposition home or self-care (01) ==
LOC: RAD 13:05
PROVIDERS: PCP Internal Medicine; Referring Provider Physical Medicine & Rehabilitation; Visit Provider Physical Medicine & Rehabilitation
DX: M53.3 Sacrococcygeal disorders, not elsewhere classified (principal); M46.1 Sacroiliitis, not elsewhere classified
CPT/HCPCS: 27096; 77002; 99152; J0702; J2250

== ENCOUNTER 2024-01-20 17:36 | Emergency (ER) | payer MEDICARE, SELFPAY ==
[2022-10-16 20:25] VITALS: BMI 19.1
[2024-01-20 17:42] VITALS: BP 138/87; PULSE 80; O2SAT 99
[2024-01-20 17:45] VITALS: BP 138/87; PULSE 83; RESP 16; TEMP 36.7; O2SAT 99; BMI 18.6
--- NOTE | 2024-01-20 17:51 | DI.RAD.S_ITS ---
PROCEDURE: XR HIP W PEL IF DONE RT 2V INDICATIONS: fall, R hip pain TECHNIQUE: 3 views of the hip were acquired. COMPARISON: [facility], CR, XR HIP W PEL IF DONE LT 2V, 10/11/2020, 12:57. FINDINGS: Bones: No fractures or dislocations. No suspicious bony lesions. The visualized pelvic ring appears intact. Well-aligned, intact right total arthroplasty without hardware complication. Soft tissues: No suspicious soft tissue calcifications or masses. IMPRESSION: No displaced fracture. If there remains a high clinical concern or the patient cannot bear weight, consider cross-sectional imaging to exclude an occult fracture. Dictated by: Claude Haynes M.D. on 01/20/2024 at 18:53 Approved by: Claude Haynes M.D. on 01/20/2024 at 18:54
--- NOTE | 2024-01-20 18:00 | ED.FALL ---
HPI - Fall General Chief Complaint: Fall Stated Complaint: GLF Time Seen by Provider: 01/20/24 17:54 History of Present Illness HPI Narrative: 79-year-old female presents for evaluation of right hip pain and facial injury after fall. Patient tripped down a cement step, hitting her right hip and right forehead on ground. Denies use of blood thinners. Related Data Home Medications Medication Instructions Recorded Confirmed ascorbic acid (vitamin C) 500 mg 1,000 mg PO DAILY 10/19/17 12/03/23 capsule cholecalciferol (vitamin D3) 75 50 mcg PO DAILY 10/19/17 12/03/23 mcg (3,000 unit) tablet levothyroxine 50 mcg tablet 50 mcg PO DAILY 10/19/17 12/03/23 (Synthroid) magnesium 250 mg tablet 400 mg PO DAILY 10/19/17 12/03/23 cyclobenzaprine 10 mg tablet See Rx Instructions .Route 01/18/21 12/03/23 .COMPLEX PRN Muscle Spasm diphenhydramine HCl 25 mg capsule 50 mg PO BEDTIME PRN Sinus 01/18/21 12/03/23 (Benadryl) congestion propranolol 40 mg tablet 20 mg PO DAILY PRN Palpitations 01/18/21 12/03/23 semaglutide 7 mg tablet (Rybelsus) 7 mg PO DAILY Diabetes 01/18/21 12/03/23 zolpidem 5 mg tablet 2.5 mg PO BEDTIME PRN Sleep 01/18/21 12/03/23 glimepiride 4 mg tablet 4 mg PO DAILY 07/31/22 12/03/23 Previous Rx's Medication Instructions Recorded acetaminophen 500 mg capsule 500 mg PO Q6HR PRN Pain, Mild 01/28/21 (1-3) #90 caps docusate sodium 100 mg capsule 100 mg PO BID PRN Constipation 01/28/21 (DOK) from the narcotic pain medications #30 caps docusate sodium 100 mg capsule 100 mg PO BID PRN constipation #60 10/18/22 caps hydroxyzine pamoate 25 mg capsule 25 mg PO Q4HR PRN muscle spasm 10/18/22 #120 caps oxycodone 5 mg tablet 5 mg PO Q4-6H PRN pain, severe #60 10/18/22 tabs lactulose 20 gram/30 mL oral 20 g (30 mL) PO BID PRN 10/29/22 solution constipation #1,200 mL celecoxib 200 mg capsule (Celebrex) 200 mg PO DAILY #90 caps 08/10/23 trazodone 100 mg tablet 100 mg PO BEDTIME PRN insomnia #90 01/17/24 tabs Allergies Allergy/AdvReac Type Severity Reaction Status Date / Time meperidine [MEPERIDINE] AdvReac Mild HYPERTENSIO Verified 12/03/23 09:06 N Patient History Medical History History of COVID-19 (~11/2021) Sacral dysfunction TIA (transient ischemic attack) (~2011) BCC (basal cell carcinoma) Spinal stenosis Spondylolisthesis Arthritis Anxiety Facet arthropathy, lumbar Trigger finger Insomnia Ulnar tunnel syndrome Carpal tunnel syndrome, bilateral Surgical History History of lumbar spinal fusion (01/26/21) History of carpal tunnel surgery of right wrist History of laminectomy (~2003) Hx of laminectomy (~1984) Hx of removal of cyst (1984) History of total right hip arthroplasty (11/16/15) History of heart surgery (~2011) Hx of bilateral cataract extraction (2015) Hx of appendectomy Hx of shoulder surgery H/O hysterectomy for benign disease H/O cardiac radiofrequency ablation History of tonsillectomy and adenoidectomy Family History Father Stroke Social History household members: spouse Smoking Status: Former smoker alcohol intake: current Smoking Status: Former smoker tobacco type: cigarettes alcohol intake frequency: 0-2 drinks per day Substance Use Type: does not use Exam Initial Vital Signs Initial Vital Signs: Vital Signs Pulse Rate 80 01/20/24 17:42 Blood Pressure 138/87 01/20/24 17:42 Pulse Oximetry 99 01/20/24 17:42 Const: Awake, alert, nontoxic appearing HEENT: No deformity, PERRL, EOMI, TM normal bilaterally, punctate laceration R lateral eyebrow MSK: no deformity, full range of motion, pulses equal Skin: Warm, Dry, punctate laceration lateral R eyebrow Neuro: AO x3, CN II-XII grossly intact, moves all extremities Procedures Laceration Repair Laceration 1: Site: face Side (If applicable): right Size (cm): 0.5 Description: other (punctate) Depth: simple, single layer Local Anesthetic: lidocaine 1% and with epi Amount of anesthesia used (mL): 1 Pre-repair: irrigated extensively Skin layer closed with: nylon Skin layer suture size: 6-0 Number of sutures: 1 Technique: other (purse-string) Course Orders Ordered: ED Orders 01/20/24 17:51 XR hip w pel if done RT 2V Stat 01/20/24 17:59 CT head/brain wo con Stat Vital Signs Vital signs: Vital Signs - 8 hr 01/20/24 17:42 01/20/24 17:42 01/20/24 17:45 Temperature 98.1 F Pulse Rate 80 83 Respiratory Rate 16 Blood Pressure 138/87 138/87 Pulse Oximetry 99 99 Oxygen Delivery Method Room Air 01/20/24 18:17 01/20/24 18:30 01/20/24 19:00 Temperature Pulse Rate 82 82 78 Respiratory Rate Blood Pressure Pulse Oximetry 97 98 98 Oxygen Delivery Method MDM - Fall Differential Diagnosis Differential diagnosis: Likely compression fracture, concussion with loss of consciousness and concussion without loss of consciousness Imaging Data CT scan - head: Radiologist's Impression: PROCEDURE: CT HEAD/BRAIN WO CON INDICATIONS: GLF, HEAD/FACE INJ TECHNIQUE: Noncontrast 4.5 mm thick angled axial sections acquired from the foramen magnum to the vertex, with coronal and sagittal reformats. For radiation dose reduction, the following was used: automated exposure control, adjustment of mA and/or kV according to patient size. COMPARISON: None. FINDINGS: Image quality: Diagnostic. CSF spaces: Basal cisterns are patent. No extra-axial fluid collections. The ventricles are symmetric in size and shape. Brain: No intracranial bleeds or masses. There is cerebral volume loss for age, with resultant ventricular and sulcal prominence. There are periventricular and deep white matter chronic small vessel ischemic changes. There is intracranial internal carotid artery atherosclerosis. Skull and face: Calvarium and visualized facial bones appear intact, without suspicious lesions. Sinuses: Visualized sinuses and mastoids are clear. IMPRESSION: No acute intracranial pathology. Dictated by: Claude Haynes M.D. on 01/20/2024 at 18:54 Approved by: Claude Haynes M.D. on 01/20/2024 at 18:55 Extremity x-ray #1: Radiologist's Impression: PROCEDURE: XR HIP W PEL IF DONE RT 2V INDICATIONS: fall, R hip pain TECHNIQUE: 3 views of the hip were acquired. COMPARISON: [facility], CR, XR HIP W PEL IF DONE LT 2V, 10/11/2020, 12:57. FINDINGS: Bones: No fractures or dislocations. No suspicious bony lesions. The visualized pelvic ring appears intact. Well-aligned, intact right total arthroplasty without hardware complication. Soft tissues: No suspicious soft tissue calcifications or masses. IMPRESSION: No displaced fracture. If there remains a high clinical concern or the patient cannot bear weight, consider cross-sectional imaging to exclude an occult fracture. Dictated by: Claude Haynes M.D. on 01/20/2024 at 18:53 Approved by: Claude Haynes M.D. on 01/20/2024 at 18:54 MDM Narrative Medical decision making narrative: Ground level fall with hip pain and facial injury. Patient has only a punctate laceration near her right eyebrow, however it was very difficult to control bleeding, direct pressure and SurgiSeal did not completely stop the bleeding. Injection of just lidocaine with epinephrine also could not completely stem bleeding, in his single pursestring suture placed, SurgiSeal re-applied, and bleeding ceased. CT brain and x-ray imaging of the hip negative for acute findings. Patient ambulatory with a walker. Patient counseled on pain control measures for home. Discharge Plan Departure Patient Disposition: Home Clinical Impression: Contusion of hip, Forehead laceration Instructions: DI for Contusion Activity Restrictions/Additional Instructions: Your CT and x-ray imaging today were normal. You do not have any fractures or bleeds. Your hip hardware is intact. Take Tylenol as needed for pain, apply ice as needed to areas of swelling. Gentle activity will help to keep your muscles from stiffening up. Prescriptions: No Action celecoxib [Celebrex] 200 mg capsule 200 mg PO DAILY Qty: 90 2RF trazodone 100 mg tablet 100 mg PO BEDTIME PRN (Reason: insomnia) Qty: 90 2RF zolpidem 5 mg Tablet 2.5 mg PO BEDTIME PRN (Reason: Sleep) Rybelsus 7 mg Tablet 7 mg PO DAILY cyclobenzaprine 10 mg tablet See Rx Instructions .ROUTE .COMPLEX PRN (Reason: Muscle Spasm) Rx Instructions: TAKE ONE TABLET BY MOUTH THREE TIMES DAILY NEEDED FOR MUSCLE SPASM propranolol 40 mg Tablet 20 mg PO DAILY PRN (Reason: Palpitations) diphenhydramine HCl [Benadryl] 25 mg Capsule 50 mg PO BEDTIME PRN (Reason: Sinus congestion) acetaminophen 500 mg capsule 500 mg PO Q6HR MDD Max 6 tabs per day PRN (Reason: Pain, Mild (1-3)) Qty: 90 0RF docusate sodium [DOK] 100 mg Capsule 100 mg PO BID PRN (Reason: Constipation from the narcotic pain medications) Qty: 30 0RF docusate sodium 100 mg Capsule 100 mg PO BID PRN (Reason: constipation) Qty: 60 1RF hydroxyzine pamoate 25 mg Capsule 25 mg PO Q4HR PRN (Reason: muscle spasm) Qty: 120 0RF oxycodone 5 mg tablet 5 mg PO Q4-6H PRN (Reason: pain, severe) Qty: 60 0RF lactulose 20 gram/30 mL solution 20 g PO BID PRN (Reason: constipation) Qty: 1200 0RF levothyroxine [Synthroid] 50 mcg tablet 50 mcg PO DAILY ascorbic acid (vitamin C) 500 mg capsule 1,000 mg PO DAILY cholecalciferol (vitamin D3) 3,000 unit tablet 50 mcg PO DAILY magnesium 250 mg tablet 400 mg PO DAILY glimepiride 4 mg tablet 4 mg PO DAILY Referrals: Marietta Savage MD [Primary Care Provider] - Stand Alone Forms: Patient Portal/API
[2024-01-20 18:17] VITALS: PULSE 82; O2SAT 97
[2024-01-20 18:30] VITALS: PULSE 82; O2SAT 98
[2024-01-20 19:00] VITALS: PULSE 78; O2SAT 98
== END 2024-01-20 19:35 | disposition home or self-care (01) ==
PROVIDERS: Emergency Provider Emergency Medicine; PCP Internal Medicine
DX: S01.81XA Laceration without foreign body of other part of head, initial encounter (principal); S70.01XA Contusion of right hip, initial encounter; W01.198A Fall on same level from slipping, tripping and stumbling with subsequent striking against other object, initial encounter
CPT/HCPCS: 12011; 70450; 73502; 99281; 99284

== ENCOUNTER → 2024-01-27 15:14 | Outpatient (CLI) | payer MEDICARE, SELFPAY ==
[2022-10-16 20:25] VITALS: BMI 19.1
--- NOTE | 2024-01-27 15:15 | DI.RAD.S_ITS ---
PROCEDURE: XR HIP W PEL IF DONE RT 2V INDICATIONS: Right hip pain TECHNIQUE: AP pelvis and lateral view of the hip acquired. COMPARISON: [facility], [place], XR HIP W PEL IF DONE RT 2V, 01/20/2024, 17:54. FINDINGS: Bones: Patient is status post right hip arthroplasty, with hardware components in expected positions. The hip joint appears congruent. The visualized bony structures appear intact. Lumbrosacral postsurgical changes. Soft tissues: Overlying postoperative changes are noted. No suspicious soft tissue densities. IMPRESSION: Stable postoperative appearance of right hip arthroplasty without evidence of hardware complication. Approved by: Jessi Mujica M.D.,Ph.D. on 01/28/2024 at 22:37
== END ==
PROVIDERS: PCP Internal Medicine; Referring Provider Nurse Practitioner Family; Visit Provider Nurse Practitioner Family
DX: M25.551 Pain in right hip (principal); W19.XXXA Unspecified fall, initial encounter; Z96.641 Presence of right artificial hip joint
CPT/HCPCS: 73502

== ENCOUNTER → 2024-01-31 19:45 | Outpatient (CLI) | payer MEDICARE, SELFPAY ==
[2022-10-16 20:25] VITALS: BMI 19.1
--- NOTE | 2024-01-31 19:50 | DI.MRI.S_ITS ---
PROCEDURE: MR HIP RT WO CON INDICATIONS: rt hip px TECHNIQUE: Noncontrast coronal T1 spin echo and STIR through the bony pelvis. Coronal and axial T2 fast spin echo with fat saturation, sagittal T1 spin echo, and oblique axial T2 fast spin echo with fat saturation through the hip. COMPARISON: [facility], CR, XR HIP W PEL IF DONE RT 2V, 01/27/2024, 15:15. FINDINGS: Image quality: Excellent. Bones and joints: Posterior fusion instrumentation with interbody spacer of the lower lumbar spine, extending into the sacrum, incompletely evaluated. The sacrum is intact. The right sacroiliac joint is unremarkable. There is mild marrow edema about the left sacroiliac joint at the posterior iliac wing, favoring degenerative. Status post right total hip arthroplasty, creating artifacts and limits evaluation. There is a nondisplaced periprosthetic fracture of the right greater trochanter, with marked marrow edema, acute. Mild degenerative changes of the left hip with mild subchondral cystic changes in the superior acetabulum. No acute fracture or dislocation of the left hip. Tendons and ligaments: The right iliopsoas, and adductor tendon are unremarkable. Low-grade tear of the right hamstring tendon origin. There is muscle edema about the right greater trochanter, reactive. Moderate right greater trochanteric bursitis. Marked marrow with moderate amount internal fluid tracking vastus lateralis, concern muscle tear. Soft tissues: Patient is likely status post hysterectomy. 5.0 cm right ovarian cyst. Severe sigmoid colon diverticulosis. Gaseous distention of colon in left lower quadrant, incompletely visualized. IMPRESSION: 1. Status post right total hip arthroplasty. Nondisplaced fracture of the right greater trochanter. 2. Partial-thickness muscle tear of the proximal right vastus lateralis. 3. 5.0 cm right ovarian cyst. Recommend correlation with pelvic ultrasound. Dictated by: Cara Munoz M.D. on 02/01/2024 at 17:15 Approved by: Cara Munoz M.D. on 02/01/2024 at 17:23
== END ==
PROVIDERS: PCP Internal Medicine; Referring Provider Internal Medicine; Visit Provider Internal Medicine
DX: S72.111A Displaced fracture of greater trochanter of right femur, initial encounter for closed fracture (principal); S76.011A Strain of muscle, fascia and tendon of right hip, initial encounter; M70.61 Trochanteric bursitis, right hip; N83.201 Unspecified ovarian cyst, right side; K57.30 Diverticulosis of large intestine without perforation or abscess without bleeding; M25.551 Pain in right hip; X58.XXXA Exposure to other specified factors, initial encounter; Z98.1 Arthrodesis status; Z96.641 Presence of right artificial hip joint
CPT/HCPCS: 73721

== ENCOUNTER → 2024-06-11 14:54 | Outpatient (CLI) | payer MEDICARE, SELFPAY ==
[2024-06-09 16:04] VITALS: BMI 19.1
[2024-06-11 15:40] LABS: Hemoglobin A1C% w Est Avg Glu 5.7 % (4.0-6.0)
[2024-06-11 15:54] LABS: Alanine Aminotransferase 23 IU/L (<35); Albumin 4.7 g/dL (3.5-5.0); Albumin Globulin Ratio 1.8 (1.0-2.8); Alkaline Phosphatase 98 U/L (38-126); Aspartate Aminotransferase 28 IU/L (14-36); BUN Creatinine Ratio 38.7 (6-22); Bilirubin Total 0.4 mg/dL (0.2-1.3); Blood Urea Nitrogen 24 mg/dL (7-17); Carbon Dioxide 31 mmol/L (22-32); Chloride 99 mmol/L (98-107); Cholesterol 245 mg/dL (140-199); Estimated Glomerular Filt Rate > 60 mL/min (>60); Globulin 2.6 g/dL (1.7-4.1); Glucose 185 mg/dL (80-110); HDL Cholesterol 80 mg/dL (40-60); HEMOLYSIS 17 (0-50); LDL Cholesterol Calculated 109 mg/dL (<100); Potassium 4.3 mmol/L (3.4-5.1); Sodium 137 mmol/L (137-145); Total Protein 7.3 g/dL (6.3-8.2); Triglycerides 280 mg/dL (35-150)
[2024-06-11 16:25] LABS: TSH w/ Reflex to FT4 0.04 uIU/mL (0.47-4.68)
[2024-06-11 17:21] LABS: Free T4, Direct Thyroxine 1.08 ng/dL (0.78-2.19)
== END ==
PROVIDERS: PCP Family Medicine; Referring Provider Family Medicine; Visit Provider Family Medicine
DX: E11.9 Type 2 diabetes mellitus without complications (principal); E78.5 Hyperlipidemia, unspecified; E83.52 Hypercalcemia; E03.9 Hypothyroidism, unspecified
CPT/HCPCS: 80053; 80061; 83036; 84439; 84443

== ENCOUNTER → 2024-06-23 13:30 | Outpatient (CLI) | payer MEDICARE, SELFPAY ==
[2024-06-09 16:04] VITALS: BMI 19.1
[2024-06-23 15:09] LABS: Creatinine Urine Random 53.28 mg/dL
[2024-06-23 15:11] LABS: Microalbumin Urine Random 1.5 mg/dL (0-1.6)
== END ==
PROVIDERS: PCP Family Medicine; Referring Provider Family Medicine; Visit Provider Family Medicine
DX: E11.9 Type 2 diabetes mellitus without complications (principal)
CPT/HCPCS: 82043; 82570

== ENCOUNTER → 2024-07-09 15:02 | Outpatient (CLI) | payer MEDICARE, SELFPAY ==
[2024-06-09 16:04] VITALS: BMI 19.1
--- NOTE | 2024-07-09 | DI.MG.S_ITS ---
BILATERAL DIGITAL SCREENING MAMMOGRAM 3D/2D WITH CAD: 07/09/2024 CLINICAL: Routine screening. Comparison is made to exams dated: 06/21/2023 mammogram, 03/20/2022 mammogram, and 09/28/2020 mammogram - [facility]. The breasts are heterogeneously dense, which may obscure small masses (category c / 51-75% glandular tissue). Current study was also evaluated with a Computer Aided Detection (CAD) system. There are benign vascular calcifications in both breasts. No significant masses, calcifications, or other findings are seen in either breast. There has been no significant interval change. IMPRESSION: BENIGN There is no mammographic evidence of malignancy. A 1 year screening mammogram is recommended. Based on the Tyrer Cuzick model (a risk assessment model) the patient's lifetime risk is 0.9% and her 10 year risk is 0.0%. According to the ACR, ACS, and NCCN guidelines, an annual breast MRI exam along with mammogram is recommended if the patient's lifetime risk is 20% or greater. This exam was interpreted at Station ID: [id number]. NOTE: For mammograms, a report in lay terms will be sent to the patient. Approximately 15% of breast malignancies will not be visualized mammographically. In the management of a palpable breast mass, a negative mammogram must not discourage biopsy of a clinically suspicious lesion. Electronically Signed By: Prashant madera/venita:07/10/2024 08:14:59 letter sent: Normal Exam ACR BI-RADS Category 2: Benign
--- NOTE | 2024-07-09 15:03 | DI.RAD.S_ITS ---
PROCEDURE: XR DEXA AXIAL SKELETON INDICATIONS: osteoporosis COMPARISON: [facility], CR, XR DEXA APPENDICULAR SKELETON, 03/09/2023, 11:53. [facility], CR, XR DEXA APPENDICULAR SKELETON, 03/20/2022, 11:53. FINDINGS: Left Femoral Neck: Bone mineral density 0.476 g/cm2, T score -3.4. Left Hip: Bone mineral density 0.591 g/cm2, T score -2.9, no significant interval change. Left Forearm: Bone mineral density 0.435 g/cm2, T score -4.3, no significant interval change. Fracture Risk Calculation (when applicable): 10-year fracture risk of a major osteoporotic fracture 30 percent and of a hip fracture 13 percent. (T score greater or equal to -1.0 to: NORMAL) (T score from -1.1 to -2.4: OSTEOPENIA) (T score less than or equal to -2.5: OSTEOPOROSIS) IMPRESSION: Osteoporosis. No significant interval change. Follow-up guidelines as follows: Osteoporosis: Consider a repeat DEXA and Vertebral Fracture Assessment (VFA) exam in 2 years or sooner if medically necessary, to reassess this patient's status. Osteopenia: Consider a repeat DEXA in 2-3 years to reassess this patient's status, or if there is a new clinical indication. Normal: Consider a repeat DEXA in 5 years or sooner, or if there is a new clinical indication. All treatment decisions require clinical judgment and consideration of individual patient factors, including patient preferences, comorbidities, previous drug use, risk factors not captured in the FRAX model (e.g., frailty, falls, vitamin D deficiency, increased bone turnover, interval significant decline in bone density ) and possible under- or over-estimation of fracture risk by FRAX. In addition, the NOF Guide recommends that FDA-approved medical therapies be considered in postmenopausal women and men age >= 50 years with a: * Hip or vertebral (clinical or morphometric) fracture * T-score of <=-2.5 at the spine or hip * Ten-year fracture probability by FRAX of >= 3% for hip fracture or >=20% for major osteoporotic fracture. Dictated by: Carlos Hdz M.D. on 07/09/2024 at 21:00 Approved by: Carlos Hdz M.D. on 07/09/2024 at 21:02
== END ==
PROVIDERS: PCP Family Medicine; Referring Provider Family Medicine; Visit Provider Family Medicine
DX: Z12.31 Encounter for screening mammogram for malignant neoplasm of breast; R92.333 Mammographic heterogeneous density, bilateral breasts
CPT/HCPCS: 77063; 77067; 77080; 77081

== ENCOUNTER → 2024-07-09 15:04 | Outpatient (CLI) | payer MEDICARE, SELFPAY ==
[2024-06-09 16:04] VITALS: BMI 19.1
--- NOTE | 2024-07-09 | DI.CT.S_ITS ---
PROCEDURE: CT LUMBAR SPINE WO CON INDICATIONS: THORACOLUMBAR PSEUDOARTHROSIS RADICULOPATHY TECHNIQUE: Noncontrast 3 mm thick sections acquired from the T12 level to the sacrum. Sagittal and coronal reformats were constructed. For radiation dose reduction, the following was used: automated exposure control. COMPARISON: [facility], MR, MR LUMBAR SPINE WO CON, 07/09/2024, 16:06. [facility], CT, CT LUMBAR SPINE WO CON, 03/18/2022, 12:37. [facility], CT, CT LUMBAR SPINE WO CON, 03/04/2021, 14:07. [facility], CT, CT LUMBAR SPINE WO CON, 12/27/2020, 12:22. FINDINGS: Image quality: Excellent. Bones: Diffuse osseous demineralization. 5 non rib-bearing lumbar vertebrae. Schmorl's nodes at the inferior endplates of T12 and L1 and superior endplate of L1 (/34). The vertebral body heights are otherwise preserved. Prior L2-S1 TLIF with 0.3 cm of hardware lucency around the right L2 pedicle screw (2/34; 5/39). This lucency was initially identified clearly on 04/24/2023 and has slightly increased. Multilevel hypertrophy of the spinous processes (5/33) Alignment: 0.9 cm of left lateral listhesis of L1 on L2 (/27). Mild dextrocurvature of the lumbar spine with the apex at L2 (/26). Otherwise, preservation of the lumbar lordosis. Discs: Intervertebral disc spacer placement at L2-L3, L3-L4, L4-L5, and L5-S1. Loss of the intervertebral disc heights space at L1-L2 Central canal: Although the epidural space is not well assessed on CT, there is least moderate central canal stenosis at L1-L2 (2/32). Neural foramina: Severe left foraminal stenosis at the left L1-L2 level (5/29). Prevertebral soft tissues: Moderate aortoiliac atherosclerosis without aneurysmal dilatation. Extensive colonic diverticulosis. No prevertebral soft tissue edema. Mild paraspinal muscle atrophy. Partially identified right hip total arthroplasty. Mild bilateral sacroiliac osteoarthritis (). IMPRESSION: 1. Hardware lucency around the right L2 pedicle screw, which may be secondary to loosening. Otherwise, status post L2-S1 TLIF without hardware complication. 2. Multilevel hypertrophy of the spinous processes, which can be seen with Baastrup's disease. 3. Moderate L1-L2 central canal stenosis. 4. Severe left L1-L2 foraminal stenosis. Dictated by: Nic Jang M.D. on 07/10/2024 at 13:03 Approved by: Nic Jang M.D. on 07/10/2024 at 13:47
--- NOTE | 2024-07-09 15:47 | DI.MRI.S_ITS ---
PROCEDURE: MR LUMBAR SPINE WO CON INDICATIONS: THORACOLUMBAR PSEUDOARTHROSIS RADICULOPATHY TECHNIQUE: Noncontrast sagittal T1 spin echo and T2 fast echo, sagittal STIR, and T2 fast spin echo through the lumbar spine. In cases with scoliosis, additional coronal T2 fast spin echo may be performed. COMPARISON: [facility], CR, XR LUMBAR SPINE 2 OR 3 VIEWS, 10/30/2023, 13:27. [facility], , MR LUMBAR SPINE WO CON, 04/24/2020, 12:42. FINDINGS: Image quality: Excellent. Alignment and Curvature: 1.4 cm of leftward subluxation of L1 on L2 increased compared to 04/24/20, stable compared to recent prior radiograph. 7 mm retrolisthesis L1 on two, also increased compared to 2019 and since the most recent radiograph. Bone Marrow: Mild bandlike osseous edema horizontally and L1 and slight superior endplate edema in L2 to the left of midline. Schmorl's nodes are present at several levels. Posterior fusion hardware is present from L2 through S1. Spinal Cord: Conus medullaris terminates at the L1 level. The proximal cord remains normal in signal. The nerve roots at the L1 level are redundant due to distal compression. Visualized cord demonstrates normal signal and size. Paraspinous Soft Tissues: No paravertebral masses. T12-L1: Further disc desiccation and height loss. Large Schmorl's node extending inferiorly. Mild circumferential disc osteophyte. Moderate facet and ligamentum flavum arthropathy. L1-L2: Progression of severe irregular disc height loss with Schmorl's node formation, retrolisthesis, and circumferential moderate disc bulge. Prominent facet arthropathy and ligamentum flavum hypertrophy are causing moderately severe central canal stenosis at this level near complete effacement of CSF space. The left facet joint is widened and anteriorly subluxed. Mild right and moderate to severe left foraminal stenosis. L2-L3: Disc desiccation and [id number] disc height loss. Mild circumferential disc bulge. No significant central canal or foraminal stenosis. L3-L4: Severe disc height loss and desiccation. Moderate broad-based right foraminal and lateral disc bulge. No significant central canal or foraminal stenosis. L4-L5: Moderate disc height loss with Schmorl's node formation. Mild circumferential disc bulge. No significant central canal or foraminal stenosis. L5-S1: Small broad-based central and left paracentral disc bulge superimposed on disc desiccation. Mild left lateral recess narrowing, similar compared to prior. No significant nerve root displacement. Moderate left and mild right foraminal stenosis. IMPRESSION: There has been interval subluxation and retrolisthesis at the L1-2 level causing severe central canal stenosis and left foraminal stenosis. There is severe left facet arthrosis. Surgical changes from L2 through S1 without significant central canal stenosis. Moderate left foraminal stenosis and mild left lateral recess stenosis at L5-S1 without significant change. Dictated by: Luz Bentley M.D. on 07/10/2024 at 9:54 Approved by: Luz Bentley M.D. on 07/10/2024 at 10:13
== END ==
PROVIDERS: PCP Family Medicine; Referring Provider Orthopaedic Surgery Orthopaedic Surgery of the Spine; Visit Provider Orthopaedic Surgery Orthopaedic Surgery of the Spine
DX: M47.26 Other spondylosis with radiculopathy, lumbar region (principal); M48.061 Spinal stenosis, lumbar region without neurogenic claudication; M48.07 Spinal stenosis, lumbosacral region; M43.16 Spondylolisthesis, lumbar region; K57.90 Diverticulosis of intestine, part unspecified, without perforation or abscess without bleeding; M96.0 Pseudarthrosis after fusion or arthrodesis; M81.0 Age-related osteoporosis without current pathological fracture; E11.9 Type 2 diabetes mellitus without complications; Z98.1 Arthrodesis status
CPT/HCPCS: 72131; 72148; 77080; 77081

== ENCOUNTER → 2024-10-30 18:32 | Outpatient (CLI) | payer MEDICARE, SELFPAY ==
[2024-06-09 16:04] VITALS: BMI 19.1
--- NOTE | 2024-10-30 18:34 | DI.MRI.S_ITS ---
PROCEDURE: MR THORACIC SPINE WO CON INDICATIONS: THROAT PAIN TECHNIQUE: Noncontrast sagittal T1 spine echo and T2 fast spin echo, sagittal STIR, and T2 fast spin echo through the thoracic spine. COMPARISON: None. FINDINGS: Image quality: Excellent. Alignment and Curvature: There is normal bony alignment. Bone Marrow: T3 and T6 wedge-shaped compression fracture without marrow edema Spinal Cord: Visualized spinal cord is normal in size and signal. Paraspinous Soft Tissues: No paravertebral masses. Miscellaneous: Asymmetric left disc bulge at T12-L1 results in [id number] central stenosis and moderate right foraminal stenosis. IMPRESSION: Chronic compression fractures at T3 and T6 without marrow edema Asymmetric right disc bulge T12-L1 results in [id number] central stenosis and moderate right foraminal stenosis Approved by: Arik Grider M.D. on 10/31/2024 at 16:23
== END ==
PROVIDERS: PCP Family Medicine; Visit Provider Physical Medicine & Rehabilitation Pain Medicine
DX: M96.1 Postlaminectomy syndrome, not elsewhere classified (principal); M48.05 Spinal stenosis, thoracolumbar region; M51.35 Other intervertebral disc degeneration, thoracolumbar region; M48.54XA Collapsed vertebra, not elsewhere classified, thoracic region, initial encounter for fracture
CPT/HCPCS: 72146